=== PATIENT | female | born 1935 | race Caucasian/White ===

== ENCOUNTER 2019-11-11 14:45 | Outpatient (CLI) | payer MEDICARE, MEDICAID, SELFPAY ==
--- NOTE | ~2019-11-11 | US_ITS ---
EXAMINATION: US venous doppler UE RT DATE: 11/11/2019 15:53 INDICATION: Acute pain and swelling of the right upper extremity TECHNIQUE: Grayscale ultrasound images without and with compression and Doppler ultrasound images of the right upper extremity veins were obtained. COMPARISON: None. FINDINGS: The right internal jugular vein, subclavian vein, axillary vein, brachial veins, basilic vein, cephal ic vein, radial vein, and ulnar vein are patent. IMPRESSION: 1. No evidence of deep venous thrombosis. Reviewed, dictated and finalized at location [facility]
== END 2019-11-11 14:46 | disposition home or self-care (01) ==
PROVIDERS: PCP Internal Medicine; Visit Provider Physician Assistant
DX: M79.89 Other specified soft tissue disorders (principal)
CPT/HCPCS: 93971

== ENCOUNTER 2019-12-21 11:10 | Emergency (ER) | payer MEDICARE, MEDICAID, SELFPAY ==
[2019-12-21] VITALS (10 sets, daily range): BP systolic 130–173; BP diastolic 54–64; PULSE 78–102; RESP 17–26; TEMP 37.7; O2SAT 92–95
--- NOTE | ~2019-12-21 | XR_ITS ---
XR chest 2V 12/21/2019 12:17 Indication: Cough, high fever and dyspnea. Procedure: 2 view chest Comparison: Comparison to multiple prior studies sequentially, with oldest reviewed study dated 11/2013. Findings: Borderline heart size. No focal air space disease, pulmonary edema, pleural effusion or radha pected pneumothorax. There is atherosclerosis of the aorta. No acute osseous abnormality. Impression: 1: No acute cardiopulmonary disease. Reviewed, dictated and finalized at location A. Impression: 1: No acute cardiopulmonary disease.
--- NOTE | 2019-12-21 11:37 | ED.WEAKNESS ---
HPI - Weakness General Chief complaint: Weakness Stated complaint: fever/sob Time Seen by Provider: 12/21/19 11:34 Source: patient Mode of arrival: EMS Limitations: no limitations History of Present Illness HPI Narrative: An 84 y/o female presents to the ED, via EMS, with c/o flu symptoms. Pt states that this morning when she woke up she started to have body aches, poor appetite, rhinorrhea, slight cough, chills, subjective fever, and N/V. She notes that she is also extremley parched. Pt denies sore throat, dysuria, and any ill contacts. She has no other complaints at this time. Onset (ago): hour(s) (Today) Duration: constant Location: generalized Associated symptoms: fever/chills, nausea/vomiting and other (Body aches, poor appetite, rhinorrhea, slight cough, parched) Related Data Home Medications Medication Instructions Recorded Confirmed darbepoetin sidney in polysorbat 300 300 mcg SUB-Q .x3w ml 12/10/19 mcg/mL in polysorbate injection methylprednisolone mg 12/21/19 Allergies Allergy/AdvReac Type Severity Reaction Status Date / Time hydrocodone Allergy Severe vomiting Verified 12/10/19 14:31 codeine Allergy Mild Hives Verified 12/10/19 14:31 Sulfa (Sulfonamide Allergy Mild Rash Verified 12/10/19 14:31 Antibiotics) MUSCLE RELAXERS Allergy Mild rapid Uncoded 12/10/19 14:31 heart beat Review of Systems Review of Systems: All systems reviewed & are unremarkable except as noted in HPI and below Constitutional: Constitutional: Reports body ache(s), Reports chills, Reports fever(s) (Subjective), Reports poor appetite and Reports other (Parched) ENT: Reports nasal discharge and Denies sore throat Respiratory: Respiratory: Reports cough (Slight) Gastrointestinal: Gastrointestinal: Reports nausea and Reports vomiting Genitourinary: Genitourinary: Denies dysuria [facility] Past Medical History Medical History (Updated 12/21/19 @ 14:45 by Mihir Norwood MD) Anemia Arthritis Carpal tunnel syndrome Cataracts, bilateral Essential (primary) hypertension Ganglion cyst of volar aspect of right wrist Hemorrhoid History of blood transfusion Hyperlipidemia Hypothyroidism Kidney disease, chronic, stage III (GFR 30-59 ml/min) Post-menopausal UTI (urinary tract infection) Surgical History Surgical History (Updated 12/21/19 @ 11:43 by Sahara Dwyer) History of bunionectomy of both great toes History of cataract surgery History of repair of rotator cuff Right Family History Family History Father Family history of lung cancer, Onset Age: 56 Patient's father is Mother Patient's mother is Social History Social History Smoking status: Never smoker Second hand tobacco smoke exposure: No Smoking end date: 10/02/1954 Alcohol intake: current Exam Narrative: Exam Narrative: GENERAL: Well-appearing, well-nourished, and in no acute distress. HEAD: Normocephalic, atraumatic ENT: Mucous membranes moist. Normal posterior oropharynx without tonsillar hypertrophy or exudate. No pharyngeal erythema. CHEST: Clear to auscultation. No respiratory distress. HEART: Regular rate and rhythm. Normal peripheral pulses. ABDOMEN: Soft, nontender, nondistended, normal active bowel sounds. EXTREMITIES: Normal range of motion. Right ganglion cyst. No edema. SKIN: Warm, dry, no rash. NEURO: Alert and oriented x3. PSYCH: Normal mood and affect. Course Course Emergency Course: Unremarkable exam. Patient with leukocytosis due to recently starting a Medrol Dosepak. Influenza negative. Suspect viral illness. Patient ambulated without hypoxia. There is no pneumonia on chest x-ray. LFT's at baseline. Gave instructions to stay at home and that she should return if she has increased shortness of breath. Vital Signs Vital signs: Vital Signs Temperature 99.8 F H 12/21/19
--- NOTE | 2019-12-21 11:43 | ECG_ITS ---
Measurements Intervals [place] Rate: 94 P: 28 TN: 157 QRS: -29 QRSD: 118 T: 24 QT: 364 QTc: 457 Interpretive Statements SINUS RHYTHM INCOMPLETE RIGHT BUNDLE BRANCH BLOCK VOLTAGE CRITERIA FOR LVH HIGH LATERAL INFARCT, AGE INDETERMINATE ABNORMAL ECG Electronically Signed On 12-21-2019 15:22:44 CDT by Miko Altamirano D.O.
[2019-12-21 11:55] LABS: Basophils Absolute Auto 0.3 K/mm3 (0.0-0.1); Basophils Percent Auto 1.1 % (0.2-1.2); Eosinophils Absolute Auto 0.3 K/mm3 (0-0.3); Hematocrit 29.1 % (37.0-47.0); Hemoglobin 8.5 g/dL (12.0-15.0); Immature Granulocyte Absolute 3.66 K/mm3 (0.00-0.031); Immature Granulocyte Percent A 13.6 % (0-0.5); Lymphocytes Absolute Auto 1.68 K/mm3 (0.9-3.2); Lymphocytes Percent Auto 6.2 % (18.3-44.2); Mean Corpuscular HGB Conc 29.2 g/dl (32-36); Mean Corpuscular Hemoglobin 27.2 pg (26-34); Mean Corpuscular Volume 93.3 fl (80-100); Mean Platelet Volume 11.2 fl (7.4-10.4); Monocytes Absolute Auto 3.9 K/mm3 (0.1-0.6); Monocytes Percent Auto 14.6 % (2.6-8.5); Neutrophils Absolute Auto 17.2 K/mm3 (1.3-6.7); Neutrophils Percent Auto 63.5 % (45.5-73.1); Nucleated Red Blood Cells Absolute Auto 0.4 K/mm3 (0.0-0.012); Nucleated Red Blood Cells Perc 1.3 % (0.0-0.2); Platelet Count Result 488 k/mm3 (150-375); Red Blood Count 3.12 M/mm3 (4.2-5.4); Red Cell Distribution Width 26.1 % (11.5-14.5)
[2019-12-21] MEDS: ACETAMINOPHEN 325 MG TABLET 650 MG PO (11:57)
[2019-12-21] MEDS: SODIUM CHLORIDE 0.9% IV 1,000 ML 999 ML IV CONT (11:57)
[2019-12-21 12:10] LABS: Alanine Aminotransferase 44 U/L (4-35); Albumin Level 4.3 g/dL (3.5-5.1); Alkaline Phosphatase 118 U/L (38-126); Aspartate Amino Transferase 64 U/L (14-36); Bilirubin,Total 1.2 mg/dL (0.2-1.3); Blood Urea Nitrogen 18 mg/dL (7-17); Calcium 9.1 mg/dL (8.4-10.2); Carbon Dioxide 25 mmol/L (22-30); Chloride 102 mmol/L (98-107); Estimated CRCL calculation 39 ml/min; Estimated Glomerular Filt Rate 53; Glucose 98 mg/dL (65-105); Potassium 4.1 mmol/L (3.4-5.0); Sodium 136 mmol/L (137-145)
[2019-12-21 12:15] LABS: Anisocytosis 1+ (NORMAL); Hypochromasia 1+ (NORMAL); Microcytosis 1+ (NORMAL); Platelet Estimate Increased (Adequate)
[2019-12-21 12:16] LABS: Ovalocytes 1+ (NORMAL); Stomatocytes 1+ (NORMAL)
[2019-12-21 13:51] LABS: Add Urine Microscopic? YES; Appearance Urine Clear (Clear); Bacteria Urine Trace /hpf; Bilirubin Urine Negative (Negative); Blood Urine Negative (Negative); Color Urine Yellow (Yellow); Glucose Urine UA Negative (Negative); Ketones Urine Negative (Negative); Leukocyte Esterase Ur Trace LEU/UL (Negative); Mucus Urine Rare /lpf; Nitrate Urine Negative (Negative); Protein Urine 2+ mg/dL (Negative); RBC Urine 0-2 /hpf (0-2); Specific Grav Ur 1.018 (1.001-1.035); Squamous Epithelial Cell Urine Occasional /hpf (Few); Urobilinogen Urine Negative mg/dL (<2.0)
[2019-12-21 13:52] LABS: Lactic Acid Reflex 0.7 mmol/L (0.7-2.1)
== END 2019-12-21 15:04 | disposition home or self-care (01) ==
PROVIDERS: Emergency Provider Emergency Medicine; PCP Internal Medicine
DX: B34.9 Viral infection, unspecified (principal); D64.9 Anemia, unspecified; E78.5 Hyperlipidemia, unspecified; E03.9 Hypothyroidism, unspecified; I12.9 Hypertensive chronic kidney disease with stage 1 through stage 4 chronic kidney disease, or unspecified chronic kidney disease; N18.3 Chronic kidney disease, stage 3 (moderate); Z87.440 Personal history of urinary (tract) infections; Z98.42 Cataract extraction status, left eye; Z98.41 Cataract extraction status, right eye; R82.998 Other abnormal findings in urine
CPT/HCPCS: 36415; 71046; 80053; 81001; 83605; 85025; 87077; 87086; 87088; 87186; 87804; 93005; 96360; 99283; A9270; J7030

== ENCOUNTER 2020-04-22 11:29 | Emergency (ER) | payer MEDICARE, MEDICAID, SELFPAY ==
--- NOTE | ~2020-04-22 | CT_ITS ---
EXAMINATION: CT lumbar spine wo con DATE: 04/22/2020 12:47 INDICATION: Sacrococcygeal pain. Fall. TECHNIQUE: Computed tomography (CT) of the lumbar spine was performed without intravenous contrast. A utomated exposure control and iterative reconstruction technique were employed. The dose-length produ ct was 1351.88 mGy-cm. COMPARISON: None FINDINGS: There is 3 mm anterolisthesis of L3 on L4 and 4 mm anterolisthesis of L4 on L5. Vertebral b merle heights are normal. There is moderately decreased disc height at T12-L1, mildly decreased disc he ight at L1-L2 and L2-L3, and moderately decreased disc height at L3-L4 and L4-L5. The following disc levels are specifically discussed: L1-L2: The disc does not extend beyond the endplate margin. There is moderate bilateral facet joint o steoarthritis. There is no neural foraminal stenosis. There is no central canal stenosis. L2-L3: The disc is bulging. There is severe bilateral facet joint osteoarthritis. There is mild bilat eral neural foraminal stenosis. There is mild central canal stenosis. L3-L4: The disc is bulging. There is severe bilateral facet joint osteoarthritis. There is mild bilat eral neural foraminal stenosis. There is mild central canal stenosis. L4-L5: The disc is bulging. There is severe bilateral facet joint osteoarthritis. There is mild bilat eral neural foraminal stenosis. There is mild central canal stenosis. L5-S1: The disc is bulging. There is severe bilateral facet joint osteoarthritis. There is mild bilat eral neural foraminal stenosis. There is mild central canal stenosis. IMPRESSION: 1. No fracture. 2. Moderate lumbar spondylosis. Reviewed, dictated and finalized at location A.
--- NOTE | ~2020-04-22 | CT_ITS ---
EXAMINATION: CT brain wo con DATE: 04/22/2020 12:46 INDICATION: Headache. TECHNIQUE: Computed tomography (CT) of the head was performed without intravenous contrast. The mA wa s adjusted according to patient size. Iterative reconstruction technique was employed. The dose-lengt h product was 605.33 mGy-cm. COMPARISON: Head CT 01/25/2019 FINDINGS: There are scattered areas of low attenuation in the cerebral white matter. There is no intr acranial hemorrhage, acute infarction, or abnormal intracranial mass lesion. The ventricles are andrea l in size. There are likely changes of ocular lens replacement surgeries. There is mild mucosal thick ening in left sphenoid sinus. The mastoid air cells are normal. IMPRESSION: 1. Worsened moderate nonspecific cerebral white matter disease, which likely represents chronic small vessel ischemic disease. Reviewed, dictated and finalized at location A. IMPRESSION: 1. Worsened moderate nonspecific cerebral white matter disease, which likely re presents chronic small vessel ischemic disease.
--- NOTE | ~2020-04-22 | CT_ITS ---
EXAMINATION: CT cervical spine wo con EXAM DATE: 04/22/2020 12:46 INDICATION: Fell on Monday. Headache. Lumbosacral pain. TECHNIQUE: Spiral CT of the cervical spine was performed without contrast. Axial images were reviewe d. Coronal and sagittal reformatted images were also reviewed. The dose-length product (DLP) for thi s examination was 213.93 mGy-cm. The exposure was tailored according to patient size (auto mA exposu re control), and iterative reconstruction (ASIR) was used as additional dose reduction technique. Th ere is no prior study for comparison. FINDINGS: There is no evidence of acute cervical fracture. The odontoid process is intact. Pre-dens space is normal. Prevertebral soft tissue is normal. There are no soft tissue abnormalities identi fied. There is no disc space widening or traumatic vertebral body subluxation suspected. There is m oderate disc disease at C5-6 and C6-7. There is mild to moderate cervical arthropathy. A detailed lev el by level evaluation of spondylosis can be added as addendum if requested. IMPRESSION: 1. No acute cervical fracture. Reviewed, dictated and finalized at location A.
--- NOTE | ~2020-04-22 | XR_ITS ---
XR pelvis 1-2V DATE: 04/22/2020 12:55 INDICATION: Fall. Pelvic pain. TECHNIQUE: AP pelvis, one view COMPARISON: None FINDINGS: The pubic symphysis and sacroiliac joints are intact. No pelvic fracture is evident. The hi p joint spaces are relatively well preserved, symmetric. No pelvic bone destruction is detected. IMPRESSION: No evidence of pelvic fracture or bone destruction Reviewed, dictated and finalized at location B.
[2020-04-22 11:41] VITALS: BP 167/71; PULSE 67; RESP 18; TEMP 36.4; O2SAT 96
[2020-04-22 12:31] LABS: Hematocrit 29.4 % (37.0-47.0); Hemoglobin 8.6 g/dL (12.0-15.0); Mean Corpuscular HGB Conc 29.3 g/dl (32-36); Mean Corpuscular Hemoglobin 26.5 pg (26-34); Mean Corpuscular Volume 90.7 fl (80-100); Mean Platelet Volume 10.6 fl (7.4-10.4); Platelet Count Result 422 k/mm3 (150-375); Red Blood Count 3.24 M/mm3 (4.2-5.4); Red Cell Distribution Width 25.9 % (11.5-14.5); White Blood Count 18.8 K/mm3 (4.5-10.0)
--- NOTE | 2020-04-22 12:34 | ED.FALL ---
HPI - Fall General Chief Complaint: Fall <MAYUR Fitzpatrick Last Filed: 04/22/20 14:31> Stated Complaint: fall on monday/headache <MAYUR Fitzpatrick Last Filed: 04/22/20 14:31> Time Seen by Provider: 04/22/20 11:51 <MAYUR Fitzpatrick Last Filed: 04/22/20 14:31> Source: patient and family <MAYUR Fitzpatrick Last Filed: 04/22/20 14:31> Mode of arrival: ambulatory <MAYUR Fitzpatrick Last Filed: 04/22/20 14:31> Limitations: no limitations <MAYUR Fitzpatrick Last Filed: 04/22/20 14:31> History of Present Illness HPI Narrative: Patient is an 85-year-old female who presents to emergency department for evaluation of injuries related to a fall that occurred Monday patient was in the shower when she slipped off the shower seat landing on her bottom has had sacral pain since patient also notes having struck the head and has had some mild posterior head pain and neck pain patient resting comfortably in the room upon arrival in no distress lives at home by herself presents with her son who is in the room and can check on the patient regularly if needed patient has been able to ambulate and get around since the incident patient know she was only down for about 25-minute <MAYUR Fitzpatrick Last Filed: 04/22/20 14:31> Related Data Home Medications: Home Medications Medication Instructions Recorded Confirmed luspatercept-aamt 25 mg 25 mg SUB-Q .q3w each 04/14/20 subcutaneous solution <MAYUR Fitzpatrick Last Filed: 04/22/20 14:31> Allergies/Adverse Reactions: Allergies Allergy/AdvReac Type Severity Reaction Status Date / Time hydrocodone Allergy Severe vomiting Verified 04/22/20 11:45 codeine Allergy Mild Hives Verified 04/22/20 11:45 Sulfa (Sulfonamide Allergy Mild Rash Verified 04/22/20 11:45 Antibiotics) MUSCLE RELAXERS Allergy Mild rapid Uncoded 04/22/20 11:45 heart beat <MAYUR Fitzpatrick Last Filed: 04/22/20 14:31> Review of Systems Review of Systems: All systems reviewed & are unremarkable except as noted in HPI and below <Ramón Oates PA-C - Last Filed: 04/22/20 14:31> [facility] Past Medical History Medical History: Medical History Anemia Arthritis Carpal tunnel syndrome Cataracts, bilateral Essential (primary) hypertension Ganglion cyst of volar aspect of right wrist Hemorrhoid History of blood transfusion Hyperlipidemia Hypothyroidism Kidney disease, chronic, stage III (GFR 30-59 ml/min) Post-menopausal UTI (urinary tract infection) <Ramón Oates PA-C - Last Filed: 04/22/20 14:31> Surgical History Surgical History: Surgical History History of bunionectomy of both great toes History of cataract surgery History of repair of rotator cuff Right <Ramón Oates PA-C - Last Filed: 04/22/20 14:31> Family History Family History: Family History Father Family history of lung cancer, Onset Age: 56 Patient's father is Mother Patient's mother is <Ramón Oates PA-C - Last Filed: 04/22/20 14:31> Social History Social History: Social History Smoking status: Never smoker Second hand tobacco smoke exposure: No Smoking end date: 10/02/1954 Alcohol intake: current Substance use: never <Ramón Oates PA-C - Last Filed: 04/22/20 14:31> Exam Narrative: Exam Narrative: GENERAL: Well-appearing, well-nourished, and in no acute distress. HEAD: Normocephalic, atraumatic. EYES: PERRLA and EOMI. ENT: Nares clear, no rhinorrhea or epistaxis. Mucous membranes moist. Oropharynx without tonsillar hypertrophy exudate or other lesions. NECK: Supple. No adenopathy or masses. CHEST
[2020-04-22 12:45] LABS: Band Neutrophils Percent 7 % (0-6); Eosinophils Absolute Manual 0.18 K/mm3 (0.02-0.5); Eosinophils Percent Manual 1 % (0-4); Lymphocytes Absolute Manual 3.94 K/mm3 (1.1-4.5); Monocytes Absolute Manual 2.25 K/mm3 (0.1-0.90); Monocytes Percent Manual 12 % (3-9); Myelocytes Percent 2 %; Neutrophils Absolute Manual 12.03 K/mm3 (1.7-7.2); Neutrophils Percent Manual 57 % (46-73); Platelet Estimate Adequate (Adequate); Total Cells Counted 100
[2020-04-22 12:46] LABS: Alanine Aminotransferase 17 U/L (4-35); Albumin Level 4.2 g/dL (3.5-5.1); Alkaline Phosphatase 98 U/L (38-126); Anion Gap 13.7 mmol/L (7-16); Anisocytosis 2+ (NORMAL); Aspartate Amino Transferase 41 U/L (14-36); Bilirubin,Total 0.8 mg/dL (0.2-1.3); Blood Urea Nitrogen 17 mg/dL (7-17); Calcium 8.8 mg/dL (8.4-10.2); Carbon Dioxide 23 mmol/L (22-30); Chloride 104 mmol/L (98-107); Creatine Kinase 41 U/L (30-135); Estimated CRCL calculation 36 ml/min; Estimated Glomerular Filt Rate 53; Glucose 92 mg/dL (65-105); Hypochromasia 1+ (NORMAL); Polychromasia 1+ (NORMAL); Potassium 4.7 mmol/L (3.4-5.0); Sodium 136 mmol/L (137-145)
[2020-04-22] MEDS: SODIUM CHLORIDE 0.9% IV 500 ML 999 ML IV CONT (12:48)
[2020-04-22 13:00] LABS: Add Urine Microscopic? NO; Appearance Urine Clear (Clear); Bilirubin Urine Negative (Negative); Blood Urine Negative (Negative); Color Urine Yellow (Yellow); Glucose Urine UA Negative (Negative); Ketones Urine Negative (Negative); Leukocyte Esterase Ur Negative LEU/UL (Negative); Nitrate Urine Negative (Negative); Protein Urine Negative (Negative); Specific Grav Ur 1.011 (1.001-1.035); Urobilinogen Urine Negative mg/dL (<2.0)
[2020-04-22 14:15] VITALS: BP 159/62; PULSE 58
[2020-04-22 14:16] VITALS: BP 194/82; PULSE 77
[2020-04-22 14:18] VITALS: BP 179/81; PULSE 80
== END 2020-04-22 15:04 | disposition home or self-care (01) ==
PROVIDERS: Emergency Medicine Emergency Medical Services; Emergency Provider Emergency Medicine; PCP Internal Medicine
DX: S09.90XA Unspecified injury of head, initial encounter (principal); M54.5 Low back pain; M47.816 Spondylosis without myelopathy or radiculopathy, lumbar region; D64.9 Anemia, unspecified; M19.90 Unspecified osteoarthritis, unspecified site; E78.5 Hyperlipidemia, unspecified; E03.9 Hypothyroidism, unspecified; I12.9 Hypertensive chronic kidney disease with stage 1 through stage 4 chronic kidney disease, or unspecified chronic kidney disease; N18.3 Chronic kidney disease, stage 3 (moderate); Z87.440 Personal history of urinary (tract) infections; W18.2XXA Fall in (into) shower or empty bathtub, initial encounter
CPT/HCPCS: 36415; 70450; 72125; 72131; 72170; 80053; 81003; 82550; 85025; 96360; 99284; J7040

== ENCOUNTER 2020-04-29 11:04 | Outpatient (CLI) | payer MEDICARE, MEDICAID, SELFPAY ==
--- NOTE | ~2020-04-29 | XR_ITS ---
EXAMINATION: XR foot LT min 3V DATE: 04/29/2020 11:29 INDICATION: Left foot pain. TECHNIQUE: 4 views of left foot were obtained. COMPARISON: None. FINDINGS: Bone alignment is normal. No fracture. There are likely changes of bunionectomy. The heads of the second and third proximal phalanges are small, which may be surgical change. There is severe o steoarthritis of first metatarsophalangeal joint and mild osteoarthritis of third metatarsophalangeal joint and some of the interphalangeal joints and midfoot joints. There are enthesophytes at the post erior and plantar aspects of calcaneal tuberosity. IMPRESSION: 1. Polyarticular osteoarthritis. Reviewed, dictated and finalized at location A.
--- NOTE | ~2020-04-29 | XR_ITS ---
EXAMINATION: XR ankle LT min 3V DATE: 04/29/2020 11:29 INDICATION: Left ankle pain. TECHNIQUE: 4 views of left ankle were obtained. COMPARISON: None. FINDINGS: Bone alignment is normal. No fracture. There is a small osteochondral lesion of lateral jeff ar dome. There are enthesophytes at the posterior and plantar aspects of calcaneal tuberosity. There is ankle soft tissue swelling. IMPRESSION: 1. Small osteochondral lesion of lateral talar dome. Reviewed, dictated and finalized at location A.
== END 2020-04-29 11:05 | disposition home or self-care (01) ==
LOC: ANHIMG 11:08
PROVIDERS: PCP Physician Assistant; Visit Provider Physician Assistant
DX: M19.072 Primary osteoarthritis, left ankle and foot (principal)
CPT/HCPCS: 73610; 73630

== ENCOUNTER 2021-05-21 00:39 | Inpatient (IN) | payer MEDICARE, MEDICAID, SELFPAY ==
[2021-05-21] VITALS (26 sets, daily range): BP systolic 105–180; BP diastolic 44–71; PULSE 72–134; RESP 20–34; TEMP 36.6–38.4; O2SAT 91–100; BMI 28.0
--- NOTE | ~2021-05-21 | XR_ITS ---
EXAMINATION: XR chest 1V portable EXAM DATE: 05/24/2021 06:18 INDICATION: COVID pneumonia. TECHNIQUE: Portable AP frontal chest x-ray was obtained. Comparison is made to prior examination from 05/22/2021, 05/21/2021. FINDINGS: Dense right mid and lower lung zone airspace disease appears unchanged. There may be mild i mprovement in the left-sided airspace disease compared to prior exams. There is no pneumothorax suspe cted. There are no pleural effusions. The cardiomediastinal silhouette is prominent but magnified on this AP technique. There are no osseous abnormalities identified. IMPRESSION: 1. Bilateral COVID pneumonia, mild improvement on the left. Reviewed, dictated and finalized at location A.
--- NOTE | ~2021-05-21 | XR_ITS ---
XR chest 1V portable 05/21/2021 00:52 Indication: Shortness of breath Procedure: AP portable chest Comparison: Comparison to multiple prior studies sequentially, with oldest reviewed study dated 2015. Findings: Interval development of extensive bilateral airspace disease. No significant effusion or pn eumothorax. There is an external radiodensity overlying the left thorax. No acute osseous abnormality . Impression: 1: Extensive bilateral airspace disease which may represent edema or pneumonia. Reviewed, dictated and finalized at location A. Impression: 1: Extensive bilateral airspace disease which may represent edema or pneumonia.
--- NOTE | ~2021-05-21 | XR_ITS ---
EXAMINATION: XR chest PICC line DATE: 05/21/2021 15:53 INDICATION: Central line placement. TECHNIQUE: A single frontal view of the chest was obtained. COMPARISON: Chest single view at 12:45 AM FINDINGS: There are airspace opacities in the mid and lower lung zones. No pleural effusion or pneumo thorax. The heart size is normal. A left upper extremity peripherally inserted central venous cathete r (PICC) is seen with tip in the superior vena cava. IMPRESSION: 1. PICC tip in the superior vena cava. 2. Airspace opacities in the mid and lower lung zones with worsening at left lung base, consistent wi th pneumonia. Reviewed, dictated and finalized at location B. IMPRESSION: 1. PICC tip in the superior vena cava. 2. Airspace opacities in the mid and lower lung zones with worsening at left brigette ng base, consistent with pneumonia.
--- NOTE | ~2021-05-21 | XR_ITS ---
XR chest 1V portable DATE: 05/22/2021 08:47 INDICATION: Covid pneumonia, pulmonary edema TECHNIQUE: Portable AP view on 05/22/2021 at 0833 hours COMPARISON: 05/21/2021 portable AP chest at 1546 hours FINDINGS: Severe bilateral consolidating pulmonary infiltrates involving particularly the mid and low er lung zones. Cardiomegaly. Aortic calcification. There is minimal if any pleural effusion. No pneumothorax. Left upper extremity PIC catheter tip overlies proximal superior vena cava. IMPRESSION: Severe patchy consolidating infiltrates both lungs, especially at mid and lower lung zone s, relatively stable since 05/21/2021 Reviewed, dictated and finalized at location A. IMPRESSION: Severe patchy consolidating infiltrates both lungs, especially at m id and lower lung zones, relatively stable since 05/21/2021
--- NOTE | ~2021-05-21 | US_ITS ---
EXAMINATION: US venous doppler LE EXAM DATE: 05/24/2021 09:53 INDICATION: Shortness of breath, cancer. TECHNIQUE: Multiple grayscale, color flow and Doppler images of the lower extremity deep venous syste ms bilaterally were obtained and reviewed. Comparison is made to prior examination from 06/10/2015. FINDINGS: Right side: The right common femoral, femoral and profunda veins demonstrate normal color flow, respi ratory variation, augmentation and compressibility. Compressibility, color flow confirmed within the right popliteal, posterior tibial, peroneal, and greater saphenous veins. Left side: The left common femoral, femoral and profunda veins demonstrate normal color flow, respira tory variation, augmentation and compressibility. Compressibility, color flow confirmed within the l eft popliteal, posterior tibial, peroneal, and greater saphenous veins. IMPRESSION: 1. No lower extremity deep venous thrombosis bilaterally. Reviewed, dictated and finalized at location A.
--- NOTE | 2021-05-21 00:38 | ECG_ITS ---
Rate 133 DC 0 QRSd 114 QT 308 QTc 459 --Whitney-- P QRS -29 T 96 ATRIAL FLUTTER/TACHYCARDIA WITH RAPID VENTRICULAR RESPONSE INCOMPLETE RIGHT BUNDLE BRANCH BLOCK LEFT VENTRICULAR HYPERTROPHY AND ST-T CHANGE MINIMAL Q WAVES- HIGH LATERAL LEADS BASELINE ARTIFACT- I, II, III, AVR, AVL, AVF, V1-V2, V6 ABNORMAL ECG Electronically Signed On 05-21-2021 6:05:25 CDT by Miko Altamirano D.O. COMPARED TO ECG 12/21/2019 11:22:15 ATRIAL FLUTTER NOW PRESENT ST (T WAVE) DEVIATION NOW PRESENT MTDD
[2021-05-21] MEDS: FUROSEMIDE INJ 40 MG/4 ML VIAL IV PUSH ×2 (00:52→12:44)
[2021-05-21 00:53] LABS: Hematocrit 33.2 % (37.0-47.0); Hemoglobin 9.5 g/dL (12.0-15.0); Mean Corpuscular HGB Conc 28.6 g/dl (32-36); Mean Corpuscular Hemoglobin 28.9 pg (26-34); Mean Corpuscular Volume 100.9 fl (80-100); Mean Platelet Volume 11.2 fl (7.4-10.4); Platelet Count Result 601 k/mm3 (150-375); Red Blood Count 3.29 M/mm3 (4.2-5.4); Red Cell Distribution Width 22.2 % (11.5-14.5)
[2021-05-21 01:02] LABS: Anion Gap 14 mmol/L (8-16); Blood Urea Nitrogen 30 mg/dL (7-17); Calcium 8.5 mg/dL (8.4-10.2); Carbon Dioxide 17 mmol/L (22-30); Chloride 104 mmol/L (98-107); Estimated Glomerular Filt Rate 33; Glucose 270 mg/dL (65-110); Potassium 4.5 mmol/L (3.4-5.0); Sodium 135 mmol/L (137-145)
[2021-05-21 01:03] LABS: Alanine Aminotransferase 33 U/L (4-35); Albumin Level 4.5 g/dL (3.5-5.1); Alkaline Phosphatase 135 U/L (38-126); Aspartate Amino Transferase 89 U/L (14-36); Bilirubin,Total 0.7 mg/dL (0.2-1.3)
[2021-05-21 01:04] LABS: Band Neutrophils Percent 5 % (0-6); Eosinophils Percent Manual 5 % (0-4); Lymphocytes Absolute Manual 7.28 K/mm3 (1.1-4.5); Metamyelocytes Percent 1 %; Monocytes Absolute Manual 1.96 K/mm3 (0.1-0.90); Monocytes Percent Manual 7 % (3-9); Neutrophils Absolute Manual 17.08 K/mm3 (1.7-7.2); Neutrophils Percent Manual 56 % (46-73); Nucleated Red Blood Cells 2 %; Total Cells Counted 100
[2021-05-21 01:05] LABS: Alveolar/Arterial O2 Gradient 589.9 mmHg; Carboxyhemoglobin 0.3 % THb (0-2.0); Fractional Inspired Oxygen 100 %; HCO3 ABG 15.6 mEq/l (22.0-26.0); Methemoglobin ABG 0.2 %THb (0-1.5); Oxyhemoglobin 91.1 % THb (90.0-100.0); PCO2 ABG 42.5 mmHg (35.0-45.0); PO2 ABG 80.6 mmHg (80.0-100.0); PO2 FiO2 Ratio Arterial Blood 0.81 %; Reduced Hemoglobin 8.4 %THb (0-5.0); Total Hemoglobin 10.1 g/dL (12.0-18.0)
[2021-05-21 01:06] LABS: Device NON-INVASIVE VENT; Modified Allen's Test Pass; Site Drawn LEFT RADIAL; pH ABG 7.183 (7.350-7.450)
[2021-05-21 01:06] LABS: Anisocytosis 1+ (NORMAL); Ovalocytes 2+ (NORMAL); Platelet Estimate Increased (Adequate)
[2021-05-21 01:07] LABS: Non-Invasive Expiratory Pressure 8 CMH2O; Non-Invasive Inspiratory Pressure 16 CMH2O; Non-Invasive Vent Rate 18 /MIN
[2021-05-21] MEDS: NITROGLYCERIN/D5W 200 MCG/ML 50 MG/250 ML BTL IV CONT (01:11)
--- NOTE | 2021-05-21 01:14 | PC.NURSE ---
HÉCTOR Craven double check Nitro drip rate/dose.
[2021-05-21 01:15] LABS: NT Pro B Type Natriuretic Pept 6290 pg/mL (5-100); Troponin I < 0.012 ng/mL (0.000-0.034)
--- NOTE | 2021-05-21 02:07 | ED.SOB ---
HPI - SOB/Dyspnea General Chief Complaint: Shortness of Breath/Dyspnea Stated Complaint: sob Time Seen by Provider: 05/21/21 00:42 Source: patient and family History of Present Illness HPI Narrative: Patient presents and respiratory distress. Reports history of myelodysplastic syndrome and had transfusion of 2 units of RBCs yesterday. Today follow-up with her physician and was doing well however this evening she developed shortness of breath was called and she was brought in for evaluation. Family reports a history of pulmonary edema. Family denies recent fevers, cough, congestion, nausea, vomiting. Patient denies any focal areas of pain such as chest pain or abdominal pain Related Data Home Medications Medication Instructions Recorded Confirmed luspatercept-aamt 25 mg 25 mg SUB-Q .q3w each 04/14/20 12/22/20 subcutaneous solution acetaminophen 325 mg tablet 325 mg PO Q12H PRN tablet 04/29/20 04/30/21 azacitidine 300 mg tablet 300 mg PO DAILY 12/22/20 12/22/20 docusate sodium 100 mg capsule 100 mg PO DAILY 04/26/21 04/30/21 gabapentin 300 mg capsule 300 mg PO TID 04/26/21 04/30/21 pantoprazole 40 mg tablet,delayed 40 mg PO QAM 04/26/21 04/30/21 release Allergies Allergy/AdvReac Type Severity Reaction Status Date / Time hydrocodone Allergy Severe vomiting Verified 05/21/21 00:43 codeine Allergy Mild Hives Verified 05/21/21 00:43 Sulfa (Sulfonamide Allergy Mild Rash Verified 05/21/21 00:43 Antibiotics) MUSCLE RELAXERS Allergy Mild rapid Uncoded 05/21/21 00:43 heart beat Review of Systems Review of Systems: CONSTITUTIONAL: Denies fever, chills, or sweats. EYES: Denies visual changes, redness, or discharge. ENT: Denies rhinorrhea, congestion, sore throat, or otalgia. CARDIOVASCULAR: Denies chest pain, palpitations, or edema. RESPIRATORY: Reports shortness of breath denies cough GASTROINTESTINAL: Denies abdominal pain, nausea, vomiting, or diarrhea. GENITOURINARY: Denies dysuria or hematuria. SKIN: Denies rash or itching. MUSCULOSKELETAL: Denies back pain, joint pain, or myalgia. NEUROLOGIC: Denies headache, numbness, dizziness, or weakness. All systems reviewed & are unremarkable except as noted in HPI and below (Review of systems limited due to patient in respiratory distress) [facility] Past Medical History Medical History (Updated 05/21/21 @ 03:49 by Itzel Walker MD) Anemia Arthritis Carpal tunnel syndrome Cataracts, bilateral Essential (primary) hypertension Ganglion cyst of volar aspect of right wrist Hemorrhoid History of blood transfusion Hyperlipidemia Hypothyroidism Kidney disease, chronic, stage III (GFR 30-59 ml/min) Post-menopausal UTI (urinary tract infection) Surgical History Surgical History History of bunionectomy of both great toes History of cataract surgery History of repair of rotator cuff Right Family History Family History Father Family history of lung cancer, Onset Age: 56 Patient's father is Mother Patient's mother is Social History Social History Smoking status: Never smoker Second hand tobacco smoke exposure: No Smoking end date: 10/02/1954 Alcohol intake: never Substance use: never Exam Narrative: GENERAL: Well-appearing, well-nourished, in respiratory distress HEAD: Normocephalic, atraumatic. EYES: PERRLA and EOMI. ENT: Nares clear, no rhinorrhea or epistaxis. Mucous membranes moist. NECK: Supple. No masses. CHEST: Retractions accessory muscle use diffuse rhonchi/crackles in all lung [place] HEART: Regular tachycardia no murmur heard. ABDOMEN: Soft, nontender, nondistended, EXTREMITIES: Normal range of motion. 2+ pitting edema in the bilateral lower extremity SKIN: Warm, dry, no rash. NEURO: No focal deficits. Alert and oriented
--- NOTE | 2021-05-21 02:17 | ECG_ITS ---
Rate 86 AL 146 QRSd 105 QT 376 QTc 451 --Delta-- P 46 QRS -24 T 67 SINUS RHYTHM INCOMPLETE RIGHT BUNDLE BRANCH BLOCK LEFT VENTRICULAR HYPERTROPHY AND ST-T CHANGE MINIMAL Q WAVES- HIGH LATERAL LEADS BORDERLINE ECG Electronically Signed On 05-21-2021 7:24:01 CDT by Miko Altamirano D.O. COMPARED TO ECG 05/21/2021 00:38:02 SINUS RHYTHM NOW PRESENT MTDD
[2021-05-21 02:40] LABS: Alveolar/Arterial O2 Gradient 563.1 mmHg; Base Excess ABG -6.3 mEq/l (+/-2.0); Device NON-INVASIVE VENT; Fractional Inspired Oxygen 100 %; HCO3 ABG 18.5 mEq/l (22.0-26.0); Non-Invasive Inspiratory Pressure 16 CMH2O; Non-Invasive Vent Rate 18 /MIN; Oxygen Content ABG 14.2 %vol (16.0-22.0); Oxygen Saturation ABG 98.1 % (95.0-100.0); Oxyhemoglobin 96.6 % THb (90.0-100.0); PCO2 ABG 33.8 mmHg (35.0-45.0); PO2 ABG 116.1 mmHg (80.0-100.0); PO2 FiO2 Ratio Arterial Blood 1.16 %; Site Drawn LEFT BRACHIAL; Total Hemoglobin 10.3 g/dL (12.0-18.0); pH ABG 7.355 (7.350-7.450)
[2021-05-21 02:41] LABS: Non-Invasive Expiratory Pressure 8 CMH2O
--- NOTE | 2021-05-21 02:42 | PC.NURSE ---
called lab to inform them the rapid covid test has been sent.
--- NOTE | 2021-05-21 02:59 | PC.NURSE ---
i have tried to make contact with dr lerma twice for this pt. i have left 2 messages and no call back
[2021-05-21 03:00] LABS: EDCOVIDSCREEN Negative (Negative)
--- NOTE | 2021-05-21 03:42 | PM.IMHP ---
H&P: HPI History of Present Illness Date/Time: 05/21/21 03:42 Chief Complaint: Shortness of breath Narrative: This is an 86-year-old female with past medical history significant for myelodysplastic syndrome and myelofibrosis, chronic kidney disease, anemia of chronic kidney disease. Patient received 2 units of packed red blood cells on Monday of this week and she tolerated well however night she call her daughter after she felt very short of breath EMS was called and patient was brought to the emergency room. Upon arrival to emergency room patient was in severe respiratory distress. Preliminary workup was significant for x-ray with acute flash pulmonary edema patient was placed on BiPAP. At the time of my visit patient was on BiPAP I obtained most of the history from reviewing medical records and daughter who is sitting at bedside as per daughter there was no fevers or chills patient had been in her usual state of health up until this episode. Review of Systems Review of Systems: ROS unobtainable: Yes unobtainable due to medical condition (Respiratory failure on BiPAP) [facility] Past Medical History Medical History (Updated 05/21/21 @ 03:49 by Itzel Walker MD) Anemia Arthritis Carpal tunnel syndrome Cataracts, bilateral Essential (primary) hypertension Ganglion cyst of volar aspect of right wrist Hemorrhoid History of blood transfusion Hyperlipidemia Hypothyroidism Kidney disease, chronic, stage III (GFR 30-59 ml/min) Post-menopausal UTI (urinary tract infection) Surgical History Surgical History History of bunionectomy of both great toes History of cataract surgery History of repair of rotator cuff Right Family History Family History Father Family history of lung cancer, Onset Age: 56 Patient's father is Mother Patient's mother is Social History Social History Smoking status: Never smoker Second hand tobacco smoke exposure: No Smoking end date: 10/02/1954 Alcohol intake: never Substance use: never Meds Home Medications and Allergies Home Medications Medication Instructions Recorded Confirmed Type luspatercept-aamt 25 mg 25 mg SUB-Q .q3w each 04/14/20 12/22/20 History subcutaneous solution acetaminophen 325 mg tablet 325 mg PO Q12H PRN tablet 04/29/20 04/30/21 History levothyroxine 50 mcg tablet 50 mcg PO DAILY #90 tablet 11/10/20 04/30/21 Rx lisinopril 40 mg tablet 40 mg PO DAILY #90 tablet 12/08/20 04/30/21 Rx azacitidine 300 mg tablet 300 mg PO DAILY 12/22/20 12/22/20 History docusate sodium 100 mg capsule 100 mg PO DAILY 04/26/21 04/30/21 History gabapentin 300 mg capsule 300 mg PO TID 04/26/21 04/30/21 History pantoprazole 40 mg tablet,delayed 40 mg PO QAM 04/26/21 04/30/21 History release Allergies Allergy/AdvReac Type Severity Reaction Status Date / Time hydrocodone Allergy Severe vomiting Verified 05/21/21 00:43 codeine Allergy Mild Hives Verified 05/21/21 00:43 Sulfa (Sulfonamide Allergy Mild Rash Verified 05/21/21 00:43 Antibiotics) MUSCLE RELAXERS Allergy Mild rapid Uncoded 05/21/21 00:43 heart beat Vital Signs Vital Signs - 24 hr 05/21/21 00:30 05/21/21 00:41 05/21/21 01:11 Temperature 97.9 F Pulse Rate 134 H 127 H Respiratory Rate 32 H Blood Pressure 180/69 H 162/66 H Pulse Oximetry 94 94 05/21/21 02:05 05/21/21 02:06 05/21/21 03:27 Temperature Pulse Rate 96 93 87 Respiratory Rate 30 H 28 H Blood Pressure 105/49 L 105/49 L 109/44 L Pulse Oximetry 98 100 Exam Narrative: Laying in [place] on Const: General: comfortable, no acute distress, well developed, acute distress mild and ill appearing Nutritional Appearance: average body habitus Orientation/consciousness: patient oriented x3 HENMT: Head:
[2021-05-21 05:26] LABS: Troponin I 0.214 ng/mL (0.000-0.034)
--- NOTE | 2021-05-21 05:33 | PC.NURSE ---
This patient, José Miguel Chan, was admitted to Intensive Care Unit-11. Patient/family oriented to hospital policies and general routines including ID bracelet, bed and alarms, visiting hours, pain management, procedures, bathroom and other care routines, personal items, smoking policy, room service/diet, and visiting hours. Information on how to activate the Rapid Response Team has been discussed. Patient/Family are encouraged to report perceived risks to care and to ask questions if they do not understand what they are told or what they should do.
[2021-05-21 08:46] LABS: Troponin I 0.466 ng/mL (0.000-0.034)
--- NOTE | 2021-05-21 09:52 | WPDCNINT ---
Assessment and Plan Assessment and plan (1) Acute respiratory failure with hypoxia: Code(s): J96.01 - Acute respiratory failure with hypoxia Status: Acute Assessment and Plan: Acute respiratory failure status post transfusion on 05/19/2021. Patient has a history of transfusion reactions. -chest x-ray shows bilateral diffuse infiltrates could be related to TRALI or TACO -will give additional dose of IV Lasix -patient also started on azithromycin, ceftriaxone vancomycin (2) Exposure to COVID-19 virus: Code(s): Z20.822 - Contact with and (suspected) exposure to COVID-19 Status: Acute Assessment and Plan: Patient has had exposure to a caregiver and daughter who were COVID positive -SARS-CoV-2 PCR has been obtained and pending -continue droplet, airborne and contact isolation/precautions (3) Kidney disease, chronic, stage III (GFR 30-59 ml/min): Code(s): N18.3 - Chronic kidney disease, stage 3 (moderate) Status: Acute Assessment and Plan: Patient with history of chronic kidney disease, (creatinine on 04/22/2020 was 1.0) -creatinine on this admission is 1.5 -patient will be receiving some diuretics for volume overload -continue to monitor urine output, renal function and electrolytes (4) Myelodysplastic syndrome: Code(s): D46.9 - Myelodysplastic syndrome, unspecified Status: Acute Assessment and Plan: History of myelodysplastic syndrome with myelofibrosis, follows with Dr. Lopez Additional Plan Discussed with patient updated with her condition and plan of care. Code status: DNR Critical care time spent: 42 minute This dictation may have been done utilizing a voice recognition system. Attempts have been made to correct errors. However, there may be uncorrected grammatical, spelling, and recognition errors present. Due to a high probability of clinically significant, life threatening deterioration, the patient required my highest level of preparedness to intervene emergently and I personally spent this critical care time directly and personally managing the patient. This critical care time included obtaining a history; examining the patient; pulse oximetry; ordering and review of studies; arranging urgent treatment with development of a management plan; evaluation of patient's response to treatment; frequent reassessment; and discussions with other providers. It was exclusive of separately billable procedures and treating other patients and teaching time. Please see Assessment and Plan section and the rest of the note for further information on patient assessment and treatment [employer] Consult Note Consult date: 05/21/21 Time Seen: 07:09 Reason for consult: Acute hypoxic respiratory failure, pulmonary edema, suspect COVID-19 HPI: José Miguel Chan is a 86 year old female with past medical history of myeloid dysplastic syndrome and myelofibrosis, anemia requiring blood transfusions, stage III chronic kidney disease, essential hypertension, hyperlipidemia, hypothyroidism, history of UTIs presented to the ER on 05/21/2021 in the early hours with complains of shortness of breath and respiratory distress. According the patient she was transfused 2 units of packed RBCs on 05/19. On 05/20 night, patient felt very short of breath and was brought to the ER. Chest x-ray in the ER showed flash pulmonary edema patient was given Lasix and placed on BiPAP. According the nurses records patient has a caregiver who was positive for COVID-19 approximately 2 weeks prior the patient has been round a caregiver. Patient's daughter also has tested positive for COVID. Patient is not vaccinated. She denies tobacco use, alcohol use, recreational drug use. Currently on BiPAP requesting to drink something and once the BiPAP to be off. Patient denies any chest pain, abdominal pain, nausea, vomiting, diarrhea. She denies any loss of sense of taste or smell. Pt on BiPAP 12/6 and 60% FiO2 with
[2021-05-21] MEDS: LEVOTHYROXINE SODIUM 50 MCG TABLET PO (10:33)
[2021-05-21 11:32] LABS: Lactic Acid Reflex 1.4 mmol/L (0.7-2.1)
--- NOTE | 2021-05-21 11:42 | ECHO_ITS ---
Patient Info Name: José Miguel Chan Age: 86 years : 1935 Gender: Female Ht: 62 in Wt: 153 lbs BSA: 1.76 m2 HR: 74 bpm BP: 95 / 46 mmHg Heart Rhythm: Sinus Rhythm Exam Date: 05/21/2021 2:01 PM Exam Location: [facility] Patient Status: Inpatient Admit Date: 05/21/2021 Staff Ordering Physician: Hu Pepper MD Digital Media Designer: Jevon Courtney, TATUM, RT Attending Provider: Itzel Walker MD Referring Physician: Shantelle FLORES; Exam Type: CA echo doppler color flow Study Info Indications R60.0 - Localized edema Complete two-dimensional, color flow and Doppler transthoracic echocardiogram is performed. Strain analysis performed. Summary 1. Complete two-dimensional, color flow and Doppler transthoracic echocardiogram is performed. 2. Left ventricular chamber dimension is normal. 3. Left ventricular systolic function is normal, estimated at 65-70%. 4. The left ventricular diastolic function is grade II diastolic dysfunction. 5. Left atrial chamber dimension is mildly enlarged. 6. There is no aortic valve stenosis. 7. There is mild mitral valve regurgitation. 8. There is mild tricuspid valve regurgitation. 9. Mild pulmonary hypertension, estimated pulmonary arterial systolic pressure is 44 mmHg. Left Ventricle Left ventricular chamber dimension is normal. Left ventricular systolic function is normal, estimated at 65-70%. There is mildly increased left ventricular wall thickness. The left ventricular diastolic function is grade II diastolic dysfunction. Global longitudinal strain is mildly elevated at -16 %. Right Ventricle Right ventricular chamber dimension is normal. Right ventricular systolic function is normal. Left Atria Left atrial chamber dimension is mildly enlarged. Right Atria Right atrial chamber dimension is mildly enlarged. Aortic Valve The aortic valve is trileaflet. There is mild aortic valve sclerosis. There is no aortic valve stenosis. There is mild aortic valve regurgitation. Pulmonic Valve The pulmonic valve is not well visualized. There is mild pulmonic regurgitation. Mitral Valve The mitral valve has thickened leaflets. There is mild mitral valve regurgitation. The mitral valve annulus is moderately calcified. Tricuspid Valve The tricuspid valve leaflets are normal. There is mild tricuspid valve regurgitation. Mild pulmonary hypertension, estimated pulmonary arterial systolic pressure is 44 mmHg. Pericardium/Pleural The pericardium appears normal. There is no pericardial effusion. Inferior Vena Cava Dilated inferior vena cava with >50% collapse upon inspiration consistent with Empty right atrial pressure, 10 mmHg. Aorta The aortic root size at the sinus of Valsalva is normal. There is mild-moderate aortic atherosclerosis. Left Ventricular Outflow Tract Name Value Normal LVOT 2D LVOT Diameter 2.0 cm LVOT Doppler LVOT Peak Gradient 6 mmHg LVOT Mean Gradient 3 mmHg LVOT VTI 23 cm LVOT VTI/AV VTI Ratio 0.8
[2021-05-21] MEDS: LIDOCAINE HCL 1% PF INJ 5 ML VIAL INFILTRATE (15:15)
--- NOTE | 2021-05-21 16:07 | PM.CNCAR ---
Assessment and Plan Assessment and plan (1) Elevated troponin: Code(s): R77.8 - Other specified abnormalities of plasma proteins Status: Acute Assessment and Plan: Mild troponin elevation without anginal symptoms or ischemic EKG changes. Most likely secondary to acute renal insufficiency severe acute hypoxic respiratory failure, pulmonary edema with demand ischemia. Unlikely acute coronary syndrome and/or plaque rupture. Recheck troponin. If further significant increase consider 48 hour systemic anticoagulation with very close observation of H&H. No evidence of active bleed although patient has chronic anemia intermittent transfusions. Otherwise, aspirin 81 mg daily reasonable for now. No wall motion abnormalities on echocardiogram. o indication for ischemic evaluation at this time. (2) Acute respiratory failure with hypoxia: Code(s): J96.01 - Acute respiratory failure with hypoxia Status: Acute Assessment and Plan: Improving with noninvasive positive-pressure ventilation, diuresis. Initial concern for transfusion related acute lung injury or TACO. Patient responding well to current therapy. Continue diuresis as tolerated. Monitor renal function electrolytes closely. EF 65-70%. Continue broad-spectrum antibiotics. Last Lasix 40 mg IV 820 at 11:54 a.m. (3) Pulmonary edema: Qualifiers: Chronicity: acute Qualified Code(s): J81.0 - Acute pulmonary edema Code(s): J81.1 - Chronic pulmonary edema Status: Acute Assessment and Plan: As above, improving with therapy. COVID pending. (4) Myelodysplastic syndrome: Code(s): D46.9 - Myelodysplastic syndrome, unspecified Status: Acute Assessment and Plan: Chronic. Deferred to primary service for management. (5) Anemia: Qualifiers: Anemia type: bone marrow failure Code(s): D64.9 - Anemia, unspecified Status: Acute Assessment and Plan: Follow H&H, stable. Status post transfusion 2 units PRBC in the past 48 hours. (6) Kidney disease, chronic, stage III (GFR 30-59 ml/min): Code(s): N18.3 - Chronic kidney disease, stage 3 (moderate) Status: Acute Assessment and Plan: Monitor renal function closely. History of Present Illness History of Present Illness Consult date/time: Date of service: 05/21/21 16:07 Cardiology consultation at the request of Dr. Abdi for opinion regarding elevated troponin Requesting physician: Hu Abdi MD Consult reason: Other (Elevated troponin) Reason For Visit: Pulmonary Edema Narrative: Patient is a pleasant 86-year-old female with a history of myelodysplastic syndrome, mild fibrosis, anemia, hypertension, dyslipidemia, hypothyroidism, chronic kidney disease stage 3 who presented to the emergency department with complaint of shortness of breath and hypoxia. Patient was transfused 2 units packed red blood cells on May 19 and the following night she became short of breath and was brought to the emergency department for chest x-ray revealed diffuse extensive pulmonary edema for which he was given IV Lasix and placed on BiPAP with 100% oxygen. According to the records a caregiver was positive for COVID-19 2 weeks prior to patient's exposure and the patient's daughter recently tested positive for COVID-19. It is noted the patient has not received her COVID vaccinations. Currently patient denies any complaints of chest pain or shortness of breath and feels much better. She states she is fine but she was reminded to how sick and hypoxic she was initially to which she seemed surprised. She is currently off BiPAP remains on oxygen supplementation. Patient denies any prior history of chest pain, CAD, CHF, pulmonary embolism. She denies any bleeding complications. Serial troponins obtained less than 0.012, 0.214, 0.466 from May 21. Twelve EKG is without acute ischemic changes. 2D echocardiogram EF 65-70% with
[2021-05-21 17:44] LABS: Add Urine Microscopic? NO; Appearance Urine Clear (Clear); Bilirubin Urine Negative (Negative); Blood Urine Negative (Negative); Color Urine Straw (Yellow); Glucose Urine UA Negative (Negative); Ketones Urine Negative (Negative); Leukocyte Esterase Ur Negative LEU/UL (NEGATIVE); Nitrate Urine Negative (Negative); Protein Urine Negative (Negative); Specific Grav Ur 1.009 (1.001-1.035); Urobilinogen Urine Negative mg/dL (<2.0)
[2021-05-21 20:11] LABS: SARS-CoV-2 RNA PCR Positive
[2021-05-22] VITALS (12 sets, daily range): BP systolic 125–146; BP diastolic 58–92; PULSE 74–94; RESP 16–25; TEMP 36–36.8; O2SAT 95–100
[2021-05-22] MEDS: CENTRAL LINE FLUSH 10 ML IV PUSH ×4 (00:21→21:29)
[2021-05-22] MEDS: LEVOTHYROXINE SODIUM 50 MCG TABLET PO (06:02)
[2021-05-22 06:31] LABS: Mean Corpuscular HGB Conc 30.8 g/dl (32-36); Mean Corpuscular Hemoglobin 29.1 pg (26-34); Mean Corpuscular Volume 94.5 fl (80-100); Mean Platelet Volume 11.3 fl (7.4-10.4); Platelet Count Result 302 k/mm3 (150-375); Red Blood Count 2.75 M/mm3 (4.2-5.4); Red Cell Distribution Width 21.2 % (11.5-14.5); White Blood Count 20.1 K/mm3 (4.5-10.0)
[2021-05-22 06:52] LABS: Anion Gap 7 mmol/L (8-16); Blood Urea Nitrogen 33 mg/dL (7-17); Calcium 8.3 mg/dL (8.4-10.2); Carbon Dioxide 25 mmol/L (22-30); Chloride 105 mmol/L (98-107); Estimated CRCL calculation 26 ml/min; Estimated Glomerular Filt Rate 39; Glucose 98 mg/dL (65-110); Potassium 3.9 mmol/L (3.4-5.0); Sodium 137 mmol/L (137-145)
[2021-05-22 07:02] LABS: Troponin I 0.277 ng/mL (0.000-0.034)
[2021-05-22 09:53] LABS: Band Neutrophils Percent 3 % (0-6); Lymphocytes Absolute Manual 2.41 K/mm3 (1.1-4.5); Monocytes Percent Manual 3 % (3-9); Neutrophils Absolute Manual 17.08 K/mm3 (1.7-7.2); Neutrophils Percent Manual 82 % (46-73); Nucleated Red Blood Cells 1 %; Total Cells Counted 100
[2021-05-22 09:55] LABS: Anisocytosis 1+ (NORMAL); Hypochromasia 1+ (NORMAL); Ovalocytes 2+ (NORMAL); Platelet Estimate Adequate (Adequate)
--- NOTE | 2021-05-22 11:32 | PM.PNCARD ---
Progress Note: A&P Additional Plan SOB is likely non cardiac and mostly related to COVID-19 pneumonia, stable o2 requirement at 7 L HFNC, Mildly elevated trop with no evidence of ACS (no chest pain or dynamic EKG changes) likely related to acute resp failure, can't rule out underlying CAD as contributing factor but patient don't accept invasive intervention if needed. SHe had Hx of MDS and require intermittent blood transfusion. Normal EF Plan resume home medications of oral lasix and ACEI lisinopril 20 mg daily Subjective Date/time seen: 05/22/21 11:32 Interval history: SOB is improving but still present with mild activity Tele: SR 90s No acute events overnight Review of Systems Review of Systems: All systems reviewed & are unremarkable except as noted in HPI and below Exam Const: General: comfortable and no acute distress Other: Able to lie flat HENMT: General nose exam: Normal nares present and no epistaxis Mouth: Yes moist mucous membranes Eyes: Sclera: sclerae normal Pupils: Equal, round and reactive pupils present Neck: Neck: supple and no JVD Carotids: no bruits Resp: Auscultation: crackles bilateral and diffuse and lung sounds not diminished Other: No chest wall tenderness Cardio: Rate: regular rate Rhythm: regular rhythm Heart sounds: no gallops, no murmurs and no rubs GI: GI Palp: Yes Soft to palpation and No Tenderness to palpation present (GI) Auscultation: normal bowel sounds Skin: General skin exam: normal color, rashes and/or lesions noted and no erythema Other: Warm Neuro: Cranial nerves: Yes Equal, round and reactive pupils present Speech: normal speech Other: No obvious focal deficit or facial asymmetry Extrem: General: no edema Other: Normal capillary refills Intact distal pulses. Objective Data Vital Signs Vital Signs: Vital Signs - 24 hr 05/21/21 12:00 05/21/21 13:14 05/21/21 13:25 Temperature 37.2 C Pulse Rate 75 Respiratory Rate 22 H Blood Pressure 111/54 L Pulse Oximetry 95 96 95 05/21/21 14:00 05/21/21 16:00 05/21/21 16:01 Temperature 37.0 C Pulse Rate 73 79 Respiratory Rate 20 22 H Blood Pressure 117/53 L 117/60 Pulse Oximetry 96 92 97 05/21/21 18:00 05/21/21 20:00 05/21/21 22:00 Temperature Pulse Rate 91 81 78 Respiratory Rate 26 H 21 H 20 Blood Pressure 134/54 L 127/56 L 134/57 L Pulse Oximetry 91 97 96 05/22/21 00:00 05/22/21 02:00 05/22/21 04:00 Temperature Pulse Rate 79 86 86 Respiratory Rate 23 H 24 H 22 H Blood Pressure 125/58 L 131/62 146/63 H Pulse Oximetry 96 96 98 05/22/21 06:00 05/22/21 08:00 Temperature Pulse Rate 89 87 Respiratory Rate 21 H 21 H Blood Pressure 142/67 H Pulse Oximetry 98 98 Intake/Output Intake/Output: Intake & Output 05/19/21 05/20/21 05/21/21 05/22/21 23:59 23:59 23:59 23:59 Intake Total 971.5 Output Total 2650 850 Balance -1678.5 -850 Meds/Results Medications: Active Medications Generic Name Dose Route Start Last Admin Trade Name Freq PRN Reason Stop Dose Admin Albuterol 2.5 mg 05/22/21 14:00 Albuterol Sulfate Neb 2.5 Mg/0.5 Ml Inh INHALATION Q6HRT YENNY Budesonide 0.5 mg 05/22/21 20:00 Budesonide Respule Neb 0.5 Mg/2 Ml Amp INHALATION Q12HRT [facility] Dexamethasone Sodium Phosphate 6 mg 05/22/21 09:00 Dexamethasone Sod Phos Inj 10 Mg/Ml 1 Ml Vial IV PUSH 05/31/21 09:01 DAILY [facility] Ceftriaxone Sodium/Dextrose 1 gm in 50 mls @ 100 mls/hr 05/21/21 09:00 05/22/21 09:12 Rocephin 1 Gm/D5w 50 Ml IVPB 100 mls/hr Q24H YENNY Administration Azithromycin 500 mg in 250 mls @ 250 mls/hr 05/21/21 09:00 05/22/21 09:11 Zithromax IVPB 250 mls/hr Q24H YENNY Administration Vancomycin HCl 1,000 mg in 250 mls @ 250 mls/hr 05/21/21 10:00 05/21/21 16:11 Vancomycin 1,000 Mg/D5w 250 Ml IVPB Infused Q36H YENNY Infusion Remdesivir 200 mg in 250 mls @ 250 mls/hr 08/21/21 10:21 IVPB 05/22/21 11:20 ONCE ONE Remdesiv
[2021-05-22] MEDS: FUROSEMIDE INJ 40 MG/4 ML VIAL IV PUSH (12:06)
[2021-05-22 12:37] LABS: INR 1.4; Prothrombin Time 16.5 Seconds (11.1-14.7)
[2021-05-22 12:38] LABS: Alanine Aminotransferase 23 U/L (4-35); Estimated CRCL calculation 28 ml/min; Estimated Glomerular Filt Rate 43
--- NOTE | 2021-05-22 13:21 | WPDINTPN ---
Progress Note: A&P Assessment and Plan (1) Acute respiratory failure with hypoxia: Code(s): J96.01 - Acute respiratory failure with hypoxia Status: Acute Assessment and Plan: Acute respiratory failure status post transfusion on 05/19/2021. Patient has a history of transfusion reactions. -chest x-ray shows bilateral diffuse infiltrates could be related to TRALI or TACO -patient diuresed well with Lasix yesterday 05/21, will diurese again today -patient also started on azithromycin, ceftriaxone vancomycin (2) COVID-19: Code(s): U07.1 - COVID-19 Status: Acute Assessment and Plan: Patient has had exposure to a caregiver and daughter who were COVID positive -SARS-CoV-2 PCR positive on 05/21/2021 -start patient on dexamethasone remdesivir -continue droplet, airborne and contact isolation/precautions (3) Kidney disease, chronic, stage III (GFR 30-59 ml/min): Code(s): N18.3 - Chronic kidney disease, stage 3 (moderate) Status: Acute Assessment and Plan: Patient with history of chronic kidney disease, (creatinine on 04/22/2020 was 1.0) -creatinine on this admission is 1.5 -creatinine improving, 1.2 this morning -will repeat diuresis -continue to monitor urine output, renal function and electrolytes (4) Myelodysplastic syndrome: Code(s): D46.9 - Myelodysplastic syndrome, unspecified Status: Acute Assessment and Plan: History of myelodysplastic syndrome with myelofibrosis, follows with Dr. Lopez Additional Plan Discussed with patient updated with her condition and plan of care. She is aware of the positive COVID results. Code status: DNR Critical care time spent: 32 minute This dictation may have been done utilizing a voice recognition system. Attempts have been made to correct errors. However, there may be uncorrected grammatical, spelling, and recognition errors present. Due to a high probability of clinically significant, life threatening deterioration, the patient required my highest level of preparedness to intervene emergently and I personally spent this critical care time directly and personally managing the patient. This critical care time included obtaining a history; examining the patient; pulse oximetry; ordering and review of studies; arranging urgent treatment with development of a management plan; evaluation of patient's response to treatment; frequent reassessment; and discussions with other providers. It was exclusive of separately billable procedures and treating other patients and teaching time. Please see Assessment and Plan section and the rest of the note for further information on patient assessment and treatment Subjective Date/time seen: 05/22/21 13:21 Interval history: Reason for consult: Acute hypoxic respiratory failure, pulmonary edema, SARs CoV 2 PCR positive 05/22/2021: Patient seen and examined, on 7 L nasal cannula, states her breathing is much improved. Hemodynamically stable, afebrile. Patient denies any chest pain, shortness of breath, abdominal pain, nausea, vomiting, diarrhea, denies any is loss of sense of taste or smell. She does cannot believe that she is positive for COVID despite her caregiver and her sister being COVID positive. Urine output has been good in response to diuresis. Tolerating p.o. diet Review of Systems Review of Systems: All systems reviewed & are unremarkable except as noted in HPI and below Exam Const: General: comfortable and no acute distress HENMT: Mouth: Yes moist mucous membranes Other: On nasal cannula Eyes: Sclera: sclerae normal Pupils: Equal, round and reactive pupils present Neck: Neck: supple Thyroid: thyroid normal Lymphatic: lymphadenopathy not noted Resp: Auscultation: rhonchi and diminished lung sounds Other: Coarse breath sounds bilaterally Cardio: Rate: regular rate Rhythm: regular rhythm GI: Inspection: non-distended GI Palp: Yes Soft to palpation and No Tend
[2021-05-22] MEDS: IPRATROPIUM BR 0.02% INH SOLN 0.5 MG/2.5 ML VIAL INHALATION ×2 (14:10→20:57)
[2021-05-22] MEDS: ALBUTEROL SULFATE NEB 2.5 MG/0.5 ML INH INHALATION ×2 (14:11→20:56)
[2021-05-22] MEDS: REMDESIVIR 200 MG/NS 250 ML 200 MG/250 ML BAG 250 MG IVPB (15:39)
--- NOTE | 2021-05-22 15:57 | PC.NURSE ---
This patient, José Miguel Chan, was received from [ICU] on 05/22/21 at 1555. Patient/family oriented to unit policies and routines
--- NOTE | 2021-05-22 16:53 | PC.NURSE ---
This patient, José Miguel Chan, was transferred to [ 329] on 05/22/21 at 1653. Personal belongings sent with patient. Report given to [HÉCTOR Prakash ]. Appropriate documentation sent with patient.
[2021-05-22] MEDS: BUDESONIDE RESPULE NEB 0.5 MG/2 ML AMP INHALATION (20:57)
[2021-05-22] MEDS: MAG HYDROX/AL HYDROX/SIMETH 30 ML UDC PO (23:20)
[2021-05-22] MEDS: MELATONIN 5 MG TABLET PO (23:20)
[2021-05-23] VITALS (12 sets, daily range): BP systolic 102–147; BP diastolic 54–65; PULSE 62–81; RESP 16–20; TEMP 35.9–36.4; O2SAT 93–98
[2021-05-23 04:04] LABS: INR 1.2; Prothrombin Time 14.8 Seconds (11.1-14.7)
[2021-05-23 04:06] LABS: Alanine Aminotransferase 21 U/L (4-35); Estimated CRCL calculation 31 ml/min; Estimated Glomerular Filt Rate 47
[2021-05-23] MEDS: CENTRAL LINE FLUSH 10 ML IV PUSH ×3 (06:00→21:22)
[2021-05-23] MEDS: LEVOTHYROXINE SODIUM 50 MCG TABLET PO (06:14)
[2021-05-23] MEDS: BUDESONIDE RESPULE NEB 0.5 MG/2 ML AMP INHALATION (09:29)
[2021-05-23] MEDS: ALBUTEROL SULFATE NEB 2.5 MG/0.5 ML INH INHALATION ×2 (09:29→15:02)
[2021-05-23] MEDS: IPRATROPIUM BR 0.02% INH SOLN 0.5 MG/2.5 ML VIAL INHALATION ×2 (09:29→15:02)
[2021-05-23] MEDS: GABAPENTIN 300 MG CAPSULE PO ×3 (09:52→16:59)
[2021-05-23] MEDS: FUROSEMIDE 20 MG TABLET PO (09:53)
[2021-05-23] MEDS: PANTOPRAZOLE 40 MG TABLET PO (09:53)
[2021-05-23] MEDS: lisinopriL 20 MG TABLET PO (09:53)
[2021-05-23] MEDS: REMDESIVIR 100 MG/NS 250 ML 100 MG/250 ML BAG 250 MG IVPB (10:15)
--- NOTE | 2021-05-23 15:34 | PM.IMPN ---
Progress Note: A&P Assessment and Plan (1) Acute respiratory failure with hypoxia: Code(s): J96.01 - Acute respiratory failure with hypoxia Status: Acute Assessment and Plan: Acute respiratory failure status post transfusion on 05/19/2021. Patient has a hx of transfusion reactions and pulmonary edema. -chest x-ray shows bilateral diffuse infiltrates could be related to TRALI or TACO. 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 -patient diuresed well with IV lasix and has been transitioned to oral lasix. -Could also be due to COVID as well. Pt is unclear about her hx with COVID. She said she has never tested positive before but thinks she had it a few months back when her daughter had it and she had lost her sense of taste and smell. PCR is positive. -Will stop vanc, continue ceftriaxone and azithromycin. -Consider PE but since she is improving with the above tx, seems to be less likely. Will montiro and if she doesn't improve or worsens, consider CTA. Will obtain LE u/s. (2) COVID-19: Code(s): U07.1 - COVID-19 Status: Acute Assessment and Plan: Patient has had exposure to a caregiver and daughter who were COVID positive months ago -SARS-CoV-2 PCR positive on 05/21/2021 -as stated above, timeline is questionable. Could be acute vs sub acute infection. Last fever 05/21 -Continue dexamethasone and remdesivir -continue droplet, airborne and contact isolation/precautions -add lovenox 40meq, monitor for blood loss. (3) Kidney disease, chronic, stage III (GFR 30-59 ml/min): Code(s): N18.3 - Chronic kidney disease, stage 3 (moderate) Status: Acute Assessment and Plan: Patient with history of chronic kidney disease, (creatinine on 04/22/2020 was 1.0) -creatinine on this admission is 1.5 now 1.1 -continue lasix oral (4) Myelodysplastic syndrome: Code(s): D46.9 - Myelodysplastic syndrome, unspecified Status: Acute Assessment and Plan: History of myelodysplastic syndrome with myelofibrosis, follows with Dr. Lopez Time Spent With Patient Time with patient: 25 - 35 minutes Subjective Date/time seen: 05/23/21 15:34 Interval history: Pt is a 86-year-old female here for hypoxia. Patient was seen today and is doing okay. she says she has had a lot of improvement since being here and does not really feel short of breath and does not have a cough. She says she never lays flat so she is unsure if she is able to. She has been eating and drinking okay without any issue. She has no swelling in her lower extremities. She is very vague about time lines but it sounds like the patient was exposed to COVID about 3 months ago where her daughter and caregiver were positive. The patient also lost her smell and taste at that time but never had any respiratory symptoms. She tested negative at that time and she was never vaccinated. Review of Systems Review of Systems: All systems reviewed & are unremarkable except as noted in HPI and below Exam Narrative: General: Well developed well nourished patient in NAD HEENT: normocephalic Neck: supple Neuro: Alert and oriented x4 CV:RRR Resp: Mild crackles at the bases, relatively clear to auscultation. No conversational dyspnea. on 4 L of oxygen Abd: Soft, non distended. No pain to palpation. Positive bowel sounds Extremities: No swelling, erythema, or pain to palpation. Objective Data Vital Signs Vital Signs: Vital Signs - 24 hr 05/22/21 15:55 05/22/21 20:00 05/22/21 21:03 Temperature 98.1 F 96.8 F L Pulse Rate 79 74 76 Respiratory Rate 18 18 16 Blood Pressure 143/71 H 137/72 Pulse Oximetry 95 98 05/22/21 21:13 05/23/21 00:00 05/23/21 08:00 Temperature 97.5 F L 97.3 F L Pulse Rate 80 78 64 Respiratory Rate 16 18 20 Blood Pressure 134/56 L 102/54 L Pulse Oximetry 98 98 05/23/21 09:31 05/23/21 09:45 05/23/21 10:25 Temperature Pulse Rate 76 81 Respiratory Rate 16 16 Blood Pressure
[2021-05-23] MEDS: ENOXAPARIN 40 MG/0.4 ML SYRINGE SUB-Q (16:59)
--- NOTE | 2021-05-23 22:30 | PCRCNOTE ---
Window of time for administration has passed. See next scheduled administration.
[2021-05-24] VITALS (14 sets, daily range): BP systolic 124–143; BP diastolic 48–65; PULSE 58–86; RESP 14–22; TEMP 35.7–36.5; O2SAT 95–99
[2021-05-24] MEDS: ALBUTEROL SULFATE NEB 2.5 MG/0.5 ML INH INHALATION ×4 (02:06→20:21)
[2021-05-24] MEDS: IPRATROPIUM BR 0.02% INH SOLN 0.5 MG/2.5 ML VIAL INHALATION ×4 (02:07→20:21)
[2021-05-24] MEDS: LEVOTHYROXINE SODIUM 50 MCG TABLET PO (05:54)
[2021-05-24] MEDS: CENTRAL LINE FLUSH 10 ML IV PUSH ×3 (05:54→22:01)
[2021-05-24 07:14] LABS: Hematocrit 30.4 % (37.0-47.0)
[2021-05-24 07:25] LABS: Alanine Aminotransferase 22 U/L (4-35); Anion Gap 9 mmol/L (8-16); Blood Urea Nitrogen 35 mg/dL (7-17); Calcium 8.9 mg/dL (8.4-10.2); Carbon Dioxide 25 mmol/L (22-30); Chloride 102 mmol/L (98-107); Estimated CRCL calculation 30 ml/min; Estimated Glomerular Filt Rate 47; Glucose 87 mg/dL (65-110); Sodium 136 mmol/L (137-145)
[2021-05-24 07:36] LABS: INR 1.2; Prothrombin Time 15.3 Seconds (11.1-14.7)
[2021-05-24 07:38] LABS: D Dimer 3.36 ug/mL (<0.48)
[2021-05-24] MEDS: FUROSEMIDE 20 MG TABLET PO (08:06)
[2021-05-24] MEDS: lisinopriL 20 MG TABLET PO (08:06)
[2021-05-24] MEDS: ENOXAPARIN 40 MG/0.4 ML SYRINGE SUB-Q (08:06)
[2021-05-24] MEDS: GABAPENTIN 300 MG CAPSULE PO ×3 (08:06→18:10)
[2021-05-24] MEDS: PANTOPRAZOLE 40 MG TABLET PO (08:06)
[2021-05-24] MEDS: BUDESONIDE RESPULE NEB 0.5 MG/2 ML AMP INHALATION ×2 (09:03→20:21)
[2021-05-24] MEDS: ALTEPLASE 2 MG VIAL (CATHFLO) IV PUSH (09:57)
[2021-05-24] MEDS: REMDESIVIR 100 MG/NS 250 ML 100 MG/250 ML BAG 250 MG IVPB (10:35)
--- NOTE | 2021-05-24 10:41 | PM.PNCARD ---
Progress Note: A&P Assessment and Plan (1) Elevated troponin: Code(s): R77.8 - Other specified abnormalities of plasma proteins Status: Acute Assessment and Plan: Mild troponin elevation without anginal symptoms or ischemic EKG changes. Most likely secondary to acute renal insufficiency severe acute hypoxic respiratory failure, pulmonary edema with demand ischemia. Unlikely acute coronary syndrome and/or plaque rupture. Recheck troponin. If further significant increase consider 48 hour systemic anticoagulation with very close observation of H&H. No evidence of active bleed although patient has chronic anemia intermittent transfusions. Otherwise, aspirin 81 mg daily reasonable for now. No wall motion abnormalities on echocardiogram. o indication for ischemic evaluation at this time. (2) Acute respiratory failure with hypoxia: Code(s): J96.01 - Acute respiratory failure with hypoxia Status: Acute Assessment and Plan: Improving. Now on O2 per nasal cannula. Initial concern for transfusion related acute lung injury or TACO. Patient responding well to current therapy. Continue diuresis as tolerated. Monitor renal function electrolytes closely. EF 65-70%. Continue broad-spectrum antibiotics. (3) Pulmonary edema: Qualifiers: Chronicity: acute Qualified Code(s): J81.0 - Acute pulmonary edema Code(s): J81.1 - Chronic pulmonary edema Status: Acute Assessment and Plan: As above, improving with therapy. COVID still pending. (4) Myelodysplastic syndrome: Code(s): D46.9 - Myelodysplastic syndrome, unspecified Status: Acute Assessment and Plan: Chronic. Deferred to primary service for management. (5) Anemia: Qualifiers: Anemia type: bone marrow failure Code(s): D64.9 - Anemia, unspecified Status: Acute Assessment and Plan: Follow H&H, stable. Status post transfusion 2 units PRBC in the past 48 hours. (6) Kidney disease, chronic, stage III (GFR 30-59 ml/min): Code(s): N18.3 - Chronic kidney disease, stage 3 (moderate) Status: Acute Assessment and Plan: Monitor renal function closely. Additional Plan SOB is likely non cardiac and mostly related to COVID-19 pneumonia, stable o2 requirement at 2L NC, Mildly elevated trop with no evidence of ACS (no chest pain or dynamic EKG changes) likely related to acute resp failure, can't rule out underlying CAD as contributing factor but patient don't accept invasive intervention if needed. SHe had Hx of MDS and require intermittent blood transfusion. Normal EF Plan resume home medications of oral lasix and ACEI lisinopril 20 mg daily. No active cardiac issues at this time. We will sign off for now. Thank you for asking us to see this patient - please do not hesitate to contact us if we can help in the care of this patient in any way. Subjective Date/time seen: 05/24/21 10:41 Cardiology follow up for elevated troponin Interval history: Date of service 05/24/2021: Feeling fine today. Breathing is better, still on 2L O2 per nasal cannula. Denies chest pain. C/o being constipated. Review of Systems Review of Systems: All systems reviewed & are unremarkable except as noted in HPI and below Constitutional: Constitutional: Reports as per HPI, Reports no additional constitutional complaints and Reports fatigue Eyes: Eyes: Reports as per HPI and Reports no additional eye complaints ENT: Reports system reviewed and no additional complaints, except as documented and Reports as per HPI Cardiovascular: Cardiovascular: Reports as per HPI, Reports no additional cardiovascular complaints, Denies chest pain, Denies diaphoresis, Denies pedal edema, Denies leg edema, Denies lightheadedness, Denies palpitations and Reports dyspnea Respiratory: Respiratory: Reports as per HPI, Reports no additional respiratory complaints and Reports dyspnea Gastrointestinal: Gastr
[2021-05-24 11:19] LABS: SARS-CoV-2 IgG Non-Reactive (NonReactive)
--- NOTE | 2021-05-24 11:46 | WPDCDIQUERY2 ---
CDI Query Clarification Request -COVID 19 documented by hospitalist -05/24 CXR impression: Bilateral COVID pneumonia, mild improvement on the left - SOB is likely non cardiac and mostly related to COVID-19 pneumonia documented by cardiology Please clarify if COVID 19 pneumonia has been ruled in or ruled out.
--- NOTE | 2021-05-24 12:44 | PDONCCN ---
HPI - Date of Consult Date/Time: 05/24/21 12:44 Requesting Physician: Lenora Childress PA-C Primary Care Provider: Bo Caceres, DO - Consult Narrative Reason for consult: Myelodysplastic syndrome Narrative: José Miguel Chan is a 86 year old female with history of myelodysplastic syndrome along with myelofibrosis diagnosed almost 4 years ago and has been seen by Dr. Lopez. Patient has received multiple lines of therapy and the last treatment was with Dacogen roughly about early this year. Patient was admitted to the hospital in [facility] for about 6 weeks duration for respiratory failure and there was concern of COVID infection at that time. Patient now came into the hospital with increasing shortness of breath without any chest pain. Chest x-ray showed acute flash pulmonary edema and patient was subsequently placed on BiPAP. Patient had received 2 units of packed red blood cell prior to the admission to the hospital. According to the patient she feels good when her hemoglobin is about 8. She denies any bleeding including melena hematochezia. She denies any recent weight loss. Review of Systems - Review of Systems All systems reviewed & are unremarkable except as noted in HPI and bel - Neurologic Reports system reviewed and no additional complaints, except as documented, Reports confusion PMFSH Medical History: Medical History (Last Reviewed 05/21/21 @ 16:12 by Fausto Pemberton MD) Anemia Arthritis Carpal tunnel syndrome Cataracts, bilateral Essential (primary) hypertension Ganglion cyst of volar aspect of right wrist Hemorrhoid History of blood transfusion Hyperlipidemia Hypothyroidism Kidney disease, chronic, stage III (GFR 30-59 ml/min) Post-menopausal UTI (urinary tract infection) Surgical History: Surgical History (Last Reviewed 05/21/21 @ 16:12 by Fausto Pemberton MD) History of bunionectomy of both great toes History of cataract surgery History of repair of rotator cuff Right Family History: Family History (Last Reviewed 05/21/21 @ 16:12 by Fausto Pemberton MD) Father Family history of lung cancer, Onset Age: 56 Patient's father is Mother Patient's mother is - Social History Social History: Social History (Last Reviewed 05/21/21 @ 16:12 by Fausto Pemberton MD) Alcohol Use: Alcohol intake: unknown Substance Use: Substance use: never Substance use type: does not use Others: Spiritual care concerns: No Smoking Status: Smoking status: Never smoker Second hand tobacco smoke exposure: No Smoking end date: 10/02/1953 Meds Home Medications Medication Instructions Recorded Confirmed Type levothyroxine 50 mcg tablet 50 mcg PO DAILY #90 tablet 11/10/20 05/21/21 Rx lisinopril 40 mg tablet 40 mg PO DAILY #90 tablet 12/08/20 05/21/21 Rx gabapentin 300 mg capsule 300 mg PO TID 04/26/21 05/21/21 History pantoprazole 40 mg tablet,delayed 40 mg PO QAM 04/26/21 05/21/21 History release furosemide 20 mg PO DAILY 05/21/21 05/21/21 History pyridoxine (vitamin B6) 250 mg PO DAILY 05/21/21 05/21/21 History Allergies Allergy/AdvReac Type Severity Reaction Status Date / Time hydrocodone Allergy Severe vomiting Verified 05/21/21 00:43 codeine Allergy Mild Hives Verified 05/21/21 00:43 Sulfa (Sulfonamide Allergy Mild Rash Verified 05/21/21 00:43 Antibiotics) MUSCLE RELAXERS Allergy Mild rapid Uncoded 05/21/21 00:43 heart beat Results - Labs CBC & Chem 7: 05/24/21 06:10 05/24/21 06:10 Labs: Short CBC 05/24/21 Range/Units 06:10 Hgb 9.0 L (12.0-15.0) g/dL Hct 30.4 L (37.0-47.0) % BMP 05/24/21 06:10 Sodium 136 L Potassium 4.0 Chloride 102 Carbon Dioxide 25 BUN 35 H Creatinine 1.10 H Glucose 87 Calcium 8.9 Liver Function 05/24/21 Range/Units 06:10 ALT 22 (4-35) U/L Assessment and Plan - A
--- NOTE | 2021-05-24 15:16 | PM.IMPN ---
Progress Note: A&P Assessment and Plan (1) Acute respiratory failure with hypoxia: Code(s): J96.01 - Acute respiratory failure with hypoxia Status: Acute Assessment and Plan: Acute respiratory failure status post transfusion on 05/19/2021. Patient has a hx of transfusion reactions and pulmonary edema. -chest x-ray shows bilateral diffuse infiltrates could be related to TRALI or TACO. 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 -patient diuresed well with IV lasix and has been transitioned to oral lasix. -Could also be due to COVID as well. Pt is unclear about her hx with COVID. She said she has never tested positive before but thinks she had it a few months back when her daughter had it and she had lost her sense of taste and smell. PCR is positive. -Will stop vanc, continue ceftriaxone and azithromycin. -Consider PE but since she is improving with the above tx, seems to be less likely. Will monitor and if she doesn't improve or worsens, consider CTA. 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 (3) Kidney disease, chronic, stage III (GFR 30-59 ml/min): Code(s): N18.3 - Chronic kidney disease, stage 3 (moderate) Status: Acute Assessment and Plan: Patient with history of chronic kidney disease, (creatinine on 04/22/2020 was 1.0) -creatinine on this admission is 1.5 now 1.1 -continue lasix oral (4) Myelodysplastic syndrome: Code(s): D46.9 - Myelodysplastic syndrome, unspecified Status: Acute Assessment and Plan: History of myelodysplastic syndrome with myelofibrosis, follows with Dr. Lopez -hgb stable (5) Elevated troponin: Code(s): R77.8 - Other specified abnormalities of plasma proteins Status: Acute Assessment and Plan: No CP on exam -cardiology following -no signs of ACS or wall motion abnormalities on echo -cardiology recommended asa, will start (6) Pneumonia due to COVID-19 virus: Code(s): U07.1 - COVID-19; J12.82 - Pneumonia due to coronavirus disease 2019 Status: Acute Assessment and Plan: As above -wean o2 Subjective Date/time seen: 05/24/21 15:16 Interval history: Pt is a 86-year-old female here for hypoxia. Patient was seen today and doing well. She had no complaints. She has been up in going to the bathroom and does not have any shortness of breath. She says if she really exerts herself she has some shortness of breath but is feeling much better than when she did on admission. Her cough is minimal. She is eating and drinking well without issue. She denies nausea, vomiting, fevers, chills, abdominal pain or leg swelling. Exam Narrative: General: Well developed well nourished patient in NAD HEENT: normocephalic Neck: supple Neuro: Alert and oriented x4 CV:RRR Resp: Relatively clear to auscultation. No conversational dyspnea. on 2 L of oxygen Abd: Soft, non distended. No pain to palpation. Positive bowel sounds Extremities: No swelling, erythema, or pain to palpation. Objective Data Vital Signs Vital Signs: Vital Signs - 24 hr 05/23/21 16:00 05/23/21 20:00 05/23/21 22:26 Temperature 96.6 F L 96.7 F L Pulse Rate 80 62 62 Respiratory Rate 20 18 18 Blood Pressure 117/65 119/54 L Pulse Oximetry 95 95 95 05/24/21 00:00 05/24/21 02:07 05/24/21 02:18 Temperature 96.7 F L Pulse Rate 66 72 70 Respiratory Rate 18 16 16 Blood Pressure 129/57 L Pulse Oximetry 97 05/24/21 04:00 05/24/21 08:00 05/24/21 09:05 Te
[2021-05-25] VITALS (12 sets, daily range): BP systolic 110–167; BP diastolic 46–68; PULSE 56–89; RESP 14–20; TEMP 36.2–37.3; O2SAT 93–97
[2021-05-25] MEDS: IPRATROPIUM BR 0.02% INH SOLN 0.5 MG/2.5 ML VIAL INHALATION ×4 (02:45→21:10)
[2021-05-25] MEDS: ALBUTEROL SULFATE NEB 2.5 MG/0.5 ML INH INHALATION ×4 (02:53→21:10)
[2021-05-25] MEDS: CENTRAL LINE FLUSH 10 ML IV PUSH ×3 (06:18→20:12)
[2021-05-25] MEDS: LEVOTHYROXINE SODIUM 50 MCG TABLET PO (06:19)
[2021-05-25 06:47] LABS: Hematocrit 30.2 % (37.0-47.0); Hemoglobin 8.9 g/dL (12.0-15.0); Mean Corpuscular HGB Conc 29.5 g/dl (32-36); Mean Corpuscular Hemoglobin 28.3 pg (26-34); Mean Corpuscular Volume 95.9 fl (80-100); Mean Platelet Volume 11.2 fl (7.4-10.4); Platelet Count Result 455 k/mm3 (150-375); Red Blood Count 3.15 M/mm3 (4.2-5.4); Red Cell Distribution Width 21.5 % (11.5-14.5); White Blood Count 27.7 K/mm3 (4.5-10.0)
[2021-05-25 06:56] LABS: INR 1.2; Prothrombin Time 15.1 Seconds (11.1-14.7)
[2021-05-25 07:55] LABS: Alanine Aminotransferase 22 U/L (4-35); Albumin Level 3.8 g/dL (3.5-5.1); Alkaline Phosphatase 91 U/L (38-126); Anion Gap 8 mmol/L (8-16); Aspartate Amino Transferase 36 U/L (14-36); Bilirubin,Total 0.6 mg/dL (0.2-1.3); Blood Urea Nitrogen 33 mg/dL (7-17); Calcium 8.9 mg/dL (8.4-10.2); Carbon Dioxide 24 mmol/L (22-30); Chloride 104 mmol/L (98-107); Estimated CRCL calculation 33 ml/min; Estimated Glomerular Filt Rate 53; Glucose 79 mg/dL (65-110); Potassium 4.3 mmol/L (3.4-5.0); Sodium 136 mmol/L (137-145)
[2021-05-25 08:36] LABS: Band Neutrophils Percent 7 % (0-6); Eosinophils Absolute Manual 0.27 K/mm3 (0.02-0.5); Eosinophils Percent Manual 1 % (0-4); Lymphocytes Absolute Manual 0.83 K/mm3 (1.1-4.5); Monocytes Absolute Manual 2.21 K/mm3 (0.1-0.90); Monocytes Percent Manual 8 % (3-9); Neutrophils Absolute Manual 24.37 K/mm3 (1.7-7.2); Neutrophils Percent Manual 81 % (46-73); Platelet Estimate Adequate (Adequate); Total Cells Counted 100
[2021-05-25 08:37] LABS: Anisocytosis 1+ (NORMAL); Hypochromasia 1+ (NORMAL); Poikilocytosis 1+ (NORMAL); Polychromasia 1+ (NORMAL)
[2021-05-25] MEDS: PANTOPRAZOLE 40 MG TABLET PO (08:55)
[2021-05-25] MEDS: ASPIRIN 81 MG ENTERIC TABLET PO (08:55)
[2021-05-25] MEDS: GABAPENTIN 300 MG CAPSULE PO ×3 (08:55→16:38)
[2021-05-25] MEDS: lisinopriL 20 MG TABLET PO (08:55)
[2021-05-25] MEDS: FUROSEMIDE 20 MG TABLET PO (08:55)
[2021-05-25] MEDS: ENOXAPARIN 40 MG/0.4 ML SYRINGE SUB-Q (08:56)
[2021-05-25] MEDS: BUDESONIDE RESPULE NEB 0.5 MG/2 ML AMP INHALATION ×2 (09:01→21:10)
--- NOTE | 2021-05-25 09:39 | PM.IMPN ---
Progress Note: A&P Assessment and Plan (1) Acute respiratory failure with hypoxia: Code(s): J96.01 - Acute respiratory failure with hypoxia Status: Acute Assessment and Plan: Acute respiratory failure status post transfusion on 05/19/2021. Patient has a hx of transfusion reactions and chronic pulmonary edema. -chest x-ray shows bilateral diffuse infiltrates could be related to TRALI or TACO. 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 -patient diuresed well with IV lasix and has been transitioned to oral lasix. -Could also be due to COVID as well. Pt is unclear about her hx with COVID. She said she has never tested positive before but thinks she had it a few months back when her daughter had it and she had lost her sense of taste and smell. COVID PCR is positive. -Will stop vanc, continue ceftriaxone and azithromycin - Day 2 of those. -weaning from O2 nicely, no chest pain, PE not likely. Will monitor and if she doesn't improve or worsens, consider CTA. 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 (3) Kidney disease, chronic, stage III (GFR 30-59 ml/min): Code(s): N18.3 - Chronic kidney disease, stage 3 (moderate) Status: Acute Assessment and Plan: Patient with history of chronic kidney disease, creatinine on 04/22/2020 was 1.0 and 1.0 today now. -creatinine on this admission was 1.5 , and yesterday 1.1 -continue lasix oral (4) Myelodysplastic syndrome: Code(s): D46.9 - Myelodysplastic syndrome, unspecified Status: Acute Assessment and Plan: History of myelodysplastic syndrome with myelofibrosis, -follows with Dr. Lopez diagnosed with MDS roughly about 4 years ago. lastly she was treated with hypomethylating agent in early this year. Patient has appointment to see her induction coordination power engineer next week. Patient stated that the hematologists do not want her to get the COVID vaccine due to her - I believe she is confused on this subject - but at this point with active COVID infection, she will need to wait 3 months for vaccination. -Hgb/Hct stable today = 8.9/30.2 Hemoglobin stable at 9 and 8.9 after receiving blood transfusion last week. Platelet count is eelvated at 455 and WBC count is elevated at 27.7 (likely due to COVID infection). No need for transfusion as long she as she is symptomatic and hemoglobin is more than 7. Generally she feels good if her hemoglobin is around 8. She will follow-up with the induction coordination power engineer after the discharge. (5) Elevated troponin: Code(s): R77.8 - Other specified abnormalities of plasma proteins Status: Acute Assessment and Plan: Troponin was also found to be elevated. May be due to reaction after blood transfusion. No chest pain or pressure or difficulties with breathing on exam -cardiology following, consultation on 05/24 -no signs of ACS or wall motion abnormalities on Echo -cardiology recommended ASA, started on 05/24 Clinically she has been improving. Cardiology is following. (6) Pneumonia due to COVID-19 virus: Code(s): U07.1 - COVID-19; J12.82 - Pneumonia due to coronavirus disease 2018 Status: Acute Assessment and Plan: Follow COVID plan above. -wean O2 as Sats allow. Subjective Date/time seen: 05/25/21 09:39 Interval history: José Miguel's hypoxia seems to be improving. Patient was seen today and doing better. Encouraged her to ambulate with nursing staff more, get up to chair for her meals, and to turn often
[2021-05-25] MEDS: REMDESIVIR 100 MG/NS 250 ML 100 MG/250 ML BAG 250 MG IVPB (10:19)
[2021-05-25 11:14] LABS: CRP 4.7 mg/dL (<1.0)
[2021-05-25] MEDS: SENNA/DOCUSATE SODIUM TABLET 1 TAB PO (21:24)
[2021-05-26] VITALS (12 sets, daily range): BP systolic 115–169; BP diastolic 47–73; PULSE 63–89; RESP 14–20; TEMP 36.2–37.1; O2SAT 91–97
[2021-05-26] MEDS: ALBUTEROL SULFATE NEB 2.5 MG/0.5 ML INH INHALATION ×2 (02:14→09:20)
[2021-05-26] MEDS: IPRATROPIUM BR 0.02% INH SOLN 0.5 MG/2.5 ML VIAL INHALATION ×2 (02:14→09:20)
[2021-05-26] MEDS: ACETAMINOPHEN 325 MG TABLET 650 MG PO ×2 (05:17→09:02)
[2021-05-26] MEDS: CENTRAL LINE FLUSH 10 ML IV PUSH ×2 (05:17→13:21)
[2021-05-26] MEDS: LEVOTHYROXINE SODIUM 50 MCG TABLET PO (05:18)
[2021-05-26 05:58] LABS: INR 1.3; Prothrombin Time 15.7 Seconds (11.1-14.7)
[2021-05-26 06:00] LABS: Hematocrit 29.2 % (37.0-47.0); Hemoglobin 8.5 g/dL (12.0-15.0); Mean Corpuscular HGB Conc 29.1 g/dl (32-36); Mean Corpuscular Hemoglobin 27.8 pg (26-34); Mean Corpuscular Volume 95.4 fl (80-100); Mean Platelet Volume 11.4 fl (7.4-10.4); Platelet Count Result 423 k/mm3 (150-375); Red Blood Count 3.06 M/mm3 (4.2-5.4); Red Cell Distribution Width 21.3 % (11.5-14.5); White Blood Count 23.8 K/mm3 (4.5-10.0)
[2021-05-26 06:25] LABS: Alanine Aminotransferase 21 U/L (4-35); Anion Gap 6 mmol/L (8-16); Blood Urea Nitrogen 29 mg/dL (7-17); Calcium 8.8 mg/dL (8.4-10.2); Carbon Dioxide 26 mmol/L (22-30); Chloride 104 mmol/L (98-107); Estimated CRCL calculation 34 ml/min; Estimated Glomerular Filt Rate 53; Glucose 79 mg/dL (65-110); Potassium 4.1 mmol/L (3.4-5.0); Sodium 136 mmol/L (137-145)
[2021-05-26] MEDS: GABAPENTIN 300 MG CAPSULE PO ×2 (07:57→13:21)
[2021-05-26] MEDS: ASPIRIN 81 MG ENTERIC TABLET PO (07:57)
[2021-05-26] MEDS: lisinopriL 20 MG TABLET PO (07:58)
[2021-05-26] MEDS: FUROSEMIDE 20 MG TABLET PO (07:58)
[2021-05-26] MEDS: PANTOPRAZOLE 40 MG TABLET PO (07:58)
[2021-05-26] MEDS: ENOXAPARIN 40 MG/0.4 ML SYRINGE SUB-Q (07:58)
[2021-05-26] MEDS: BUDESONIDE RESPULE NEB 0.5 MG/2 ML AMP INHALATION (09:21)
[2021-05-26] MEDS: REMDESIVIR 100 MG/NS 250 ML 100 MG/250 ML BAG 250 MG IVPB (10:20)
--- NOTE | 2021-05-26 11:28 | PCRCNOTE ---
HOME O2 EVAL COMPLETE, NO REQUIREMENTS
--- NOTE | 2021-05-26 14:15 | PM.DS ---
DS: Admitting Diagnosis Admitting Diagnosis COVID, flash pulmonary edema DS: Discharge Diagnosis Discharge Diagnosis (1) Acute respiratory failure with hypoxia: Code(s): J96.01 - Acute respiratory failure with hypoxia Status: Acute Assessment and Plan: Acute respiratory failure status post transfusion on 05/19/2021. Resolved -Patient has a hx of transfusion reactions and pulmonary edema. -chest x-ray shows bilateral diffuse infiltrates could be related to TRALI or TACO. 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 -patient diuresed well with IV lasix and has been transitioned to oral lasix. -Could also be due to COVID as well. -received short course of abx but stopped due to viral illness and pulmonary edema -Pt off o2 day of discharge -PE less likely, she improved with above tx and LE dopplers negative for DVT. 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 Lopez -Hgb/Hct stable today =8.5/29.2 -She will follow-up with the engineer steam after the discharge. (5) Elevated troponin: Code(s): R77.8 - Other specified abnormalities of plasma proteins Status: Acute Assessment and Plan: No CP throughout her stay -ASA initiated by cardiology -I recommended cardiology follow-up but the patient states that she is not interested in following with Cardiology. She is 86 years old with cancer and does not want to go undergo any treatment or procedures. She spoke to the metal cans supervisor about this -no signs of ACS or wall motion abnormalities on echo (6) Pneumonia due to COVID-19 virus: Code(s): U07.1 - COVID-19; J12.82 - Pneumonia due to coronavirus disease 2019 Status: Acute Assessment and Plan: Follow COVID plan above. -home o2 showed no need or home o2 DS: Summary Hospital Course Hospital Course: Date of service May 26, 2021 Patient is an 86-year-old female with history of MDS and pulmonary edema who received a blood transfusion who presented emergency room that next day for respiratory distress. Initial CBC showed a white blood cell count 28.0, hemoglobin 9.5, hematocrit 33.2, platelets 601. BMP showed slight GHAZALA with a creatinine 1.5, acidosis with a CO2 of 17 and glucose 270. Blood gas did reveal respiratory acidosis. She was started on BiPAP due to likely flash pulmonary edema and was tachycardic. A LASIK in nitro drip was initiated. Chest x-ray showed extensive bilateral airspace disease which may represent edema or pneumonia. Patient was admitted to the ICU and observed. Her troponin did elevate and Cardiology was consulted. They did not suggest ACS but likely due to acute hypoxic respiratory failure with edema with demand ischemia. Who was initially could consider that the patient had TACO and she improved with Lasix. She was swabbed for COVID and it appeared that she also had COVID on top of this. She was on vaccinated. She remained in the unit for only a short amount of time and transferred to the floor. She was able to be weaned off o2 after several days. She received Remdesivir, Decadron, antibiotics and Lasix therapy throughout her stay. This improved her symptoms and the day of discharge was walking around the room without oxygen without any complaints.
--- NOTE | 2021-06-01 10:56 | PC.NURSE ---
Blood cx are negative.
== END 2021-05-26 16:54 | disposition home or self-care (01) | DRG 177 ==
LOC: ANHED 03:35 → ANHICU 05:08 → ANH3MEDSUR 05-23 07:31 → ANHICU 05-27 13:27
PROVIDERS: Internal Medicine; Nurse Practitioner; Physician Assistant; Admitting Provider Internal Medicine; Emergency Provider Emergency Medicine; PCP Internal Medicine; Visit Provider Internal Medicine
DX: U07.1 COVID-19 (principal); J12.82 Pneumonia due to coronavirus disease 2019; J96.01 Acute respiratory failure with hypoxia; I12.9 Hypertensive chronic kidney disease with stage 1 through stage 4 chronic kidney disease, or unspecified chronic kidney disease; N18.30 Chronic kidney disease, stage 3 unspecified; D46.9 Myelodysplastic syndrome, unspecified; M19.90 Unspecified osteoarthritis, unspecified site; E03.9 Hypothyroidism, unspecified; E78.5 Hyperlipidemia, unspecified; G56.00 Carpal tunnel syndrome, unspecified upper limb; D63.1 Anemia in chronic kidney disease; Z66 Do not resuscitate
CPT/HCPCS: 36415; 36569; 36600; 51702; 71045; 80048; 80076; 81003; 82375; 82565; 82728; 82805; 83050; 83605; 83880; 84460; 84484; 85014; 85018; 85025; 85027; 85380; 85610; 86140; 86413; 86769; 87040; 87086; 87426; 93005; 93306; 93970; 94002; 94618; 94640; 96365; 96375; 97110; 97161; 97165; 97530; 97535; 99285; A9270; C1751; C9803; G0378; J0456; J0696; J1100; J1650; J1940; J2997; J3370; J7060; U0003; U0005

== ENCOUNTER 2021-09-29 09:07 | Outpatient (CLI) | payer MEDICARE, MEDICAID, SELFPAY ==
--- NOTE | ~2021-09-29 | US_ITS ---
EXAMINATION: US abdomen complete EXAM DATE: 09/29/2021 10:00 INDICATION: R10.11 - Right upper quadrant pain . TECHNIQUE: Multiple grayscale and Doppler images of the complete abdomen were obtained (by a technolo gist who performed the scan) and subsequently reviewed. There is no prior study for comparison. FINDINGS: The abdominal aorta is normal in caliber. Visualized portion IVC is patent. The pancreatic head a nd body are normal in appearance. The pancreatic tail is not visualized. The liver has normal echogenicity and contour. There are no focal liver lesions identified. There is no evidence of intrahepatic biliary duct dilation. Portal venous flow was seen in the hepatopedal , normal direction and has normal Doppler waveform. Common bile duct measures 4 mm, which is normal. The gallbladder wall is normal in thickness, with ex pected amount of distention. No sonographic evidence of pericholecystic fluid. There is no cholelit hiases. Technologist performing exam reports patient did not demonstrate sonographic Courtney's sign. Please note that this sign is less reliable in patients who have received pain medication. Right kidney: There is normal contour and echogenicity. It measures 10.5 x 4.5 x 6.2 centimeters. T here is right renal calyceal hyperechoic focus with shadowing and artifact, a stone measuring about 8 mm. Smaller inferior calyceal stone likely measuring 4 mm. Several renal cysts up to 1.8 cm. There is no hydronephrosis. Left kidney: There is normal contour and echogenicity. It measures 10.1 x 4.4 x 5.6 centimeters. T here are no focal renal lesions identified. There is no hydronephrosis. The spleen measures 17.8 by 8.6 centimeters, moderately to severe enlarged.. IMPRESSION: 1. Moderate to severe splenomegaly. 2. Probable nonobstructing right calyceal stones. Reviewed, dictated and finalized at location A. [employer] EQUIPMENT ASSEMBLER
== END 2021-09-29 09:08 | disposition home or self-care (01) ==
LOC: ANHIMG 09:09
PROVIDERS: PCP Internal Medicine; Visit Provider Internal Medicine
DX: R10.11 Right upper quadrant pain (principal); R16.1 Splenomegaly, not elsewhere classified; N20.0 Calculus of kidney; N28.1 Cyst of kidney, acquired
CPT/HCPCS: 76700

== ENCOUNTER 2021-11-03 08:49 | Outpatient (RCR) | payer MEDICARE, MEDICAID, SELFPAY ==
[2021-11-03 09:29] LABS: Hematocrit 22.6 % (37.0-47.0)
[2021-11-03 09:34] LABS: Hemoglobin 6.8 g/dL (12.0-15.0)
[2021-11-03 10:03] VITALS: TEMP 37.8
[2021-11-03] MEDS: ACETAMINOPHEN 325 MG TABLET 650 MG PO (10:03)
[2021-11-03] MEDS: diphenhydrAMINE HCl CAP 25 MG CAPSULE PO (10:03)
[2021-11-03] MEDS: methylPREDNISolone SOD SUCC 125 MG VIAL IV PUSH (10:04)
[2021-11-03 10:17] VITALS: BP 139/59; PULSE 69; RESP 20; TEMP 37.8; O2SAT 96
[2021-11-03 10:30] VITALS: BP 127/52; PULSE 74; RESP 18; TEMP 37.4; O2SAT 94
[2021-11-03 11:30] VITALS: BP 135/56; PULSE 70; RESP 18; TEMP 37.3; O2SAT 94
[2021-11-03 12:30] VITALS: BP 134/55; PULSE 61; RESP 16; TEMP 36.8; O2SAT 93
[2021-11-03 13:05] VITALS: BP 142/58; PULSE 62; RESP 18; TEMP 37.1; O2SAT 93
== END 2021-11-29 14:40 | disposition home or self-care (01) ==
LOC: ANHCPCTRAN 08:49
PROVIDERS: PCP Internal Medicine; Visit Provider Internal Medicine Medical Oncology
DX: D46.9 Myelodysplastic syndrome, unspecified (principal)
CPT/HCPCS: 36415; 36430; 85014; 85018; 86850; 86870; 86880; 86900; 86901; 86902; 86905; 86922; 86971; 86972; A9270; J2930; P9016

== ENCOUNTER 2021-11-05 05:39 | Inpatient (IN) | payer MEDICARE, MEDICAID, SELFPAY ==
[2021-11-05] VITALS (16 sets, daily range): BP systolic 118–149; BP diastolic 38–83; PULSE 64–104; RESP 16–28; TEMP 36.2–36.8; O2SAT 94–100; BMI 28.4
--- NOTE | ~2021-11-05 | XR_ITS ---
XR chest 1V portable 11/07/2021 06:17 Indication: Shortness of breath Procedure: AP portable chest Comparison: Comparison to multiple prior studies sequentially, with oldest reviewed study dated 05/21. Findings: Borderline heart size. There is diffuse bilateral airspace disease which is improved. No si gnificant effusion or pneumothorax. No acute osseous abnormality. There is atherosclerosis. Impression: 1: Improving diffuse bilateral airspace disease which may represent edema or pneumonia. Reviewed, dictated and finalized at location A. ER WAFER SUBSTRATE Impression: 1: Improving diffuse bilateral airspace disease which may represent edema or pn eumonia.
--- NOTE | ~2021-11-05 | XR_ITS ---
EXAMINATION: XR chest 1V portable DATE: 11/05/2021 06:28 INDICATION: Shortness of breath. TECHNIQUE: A single frontal view of the chest was obtained. COMPARISON: Chest single view 05/24/2021, CT abdomen and pelvis 01/18/2013 FINDINGS: There are airspace and interstitial opacities in all right lung zones and in left mid and l ower lung zones. There are small pleural effusions. No pneumothorax. Cardiomegaly is noted. Widening of right acromioclavicular joint may be from distal clavicle resection or trauma. IMPRESSION: 1. Diffuse lung disease, consistent with pulmonary edema versus pneumonia. 2. Small pleural effusions. 3. Cardiomegaly. Reviewed, dictated and finalized at location E. [employer]
--- NOTE | 2021-11-05 05:47 | ECG_ITS ---
Measurements Intervals [place] Rate: 106 P: 35 OK: 152 QRS: -33 QRSD: 108 T: 84 QT: 346 QTc: 461 Interpretive Statements SINUS TACHYCARDIA ATRIAL PREMATURE COMPLEX LEFT AXIS DEVIATION INCOMPLETE RIGHT BUNDLE BRANCH BLOCK LEFT VENTRICULAR HYPERTROPHY AND ST-T CHANGE MINIMAL Q WAVES- HIGH LATERAL LEADS ABNORMAL ECG Electronically Signed On 11-05-2021 6:51:33 NATIONAL RECRUITER by Miko Altamirano D.O.
[2021-11-05] MEDS: ALBUTEROL SULFATE NEB 2.5 MG/0.5 ML INH 5 MG INHALATION (06:02)
[2021-11-05] MEDS: IPRATROPIUM BR 0.02% INH SOLN 0.5 MG/2.5 ML VIAL INHALATION (06:02)
--- NOTE | 2021-11-05 06:02 | ED.SOB ---
HPI - SOB/Dyspnea General Chief Complaint: Shortness of Breath/Dyspnea <Shaggy Jung MD - Last Filed: 11/05/21 06:04> Stated Complaint: sob, chf <Shaggy Jung MD - Last Filed: 11/05/21 06:04> Time Seen by Provider: 11/05/21 05:48 <Shaggy Jung MD - Last Filed: 11/05/21 06:04> Source: patient, family and EMS <Shaggy Jung MD - Last Filed: 11/05/21 06:04> Mode of arrival: EMS <Shaggy Jung MD - Last Filed: 11/05/21 06:04> Limitations: clinical condition <Shaggy Jung MD - Last Filed: 11/05/21 06:04> History of Present Illness HPI Narrative: Patient is an 86-year-old female brought in by EMS in respiratory distress. Patient complaining of shortness of breath that started last night worse this morning. Patient has a history of CHF. Patient denies any chest pain, abdominal pain, nausea, vomiting, diaphoresis, fever or chills. <Shaggy Jung MD - Last Filed: 11/05/21 06:04> Related Data Home Medications: Home Medications Medication Instructions Recorded Confirmed gabapentin 300 mg capsule 300 mg PO TID 04/26/21 11/05/21 pantoprazole 40 mg tablet,delayed 40 mg PO QAM 04/26/21 11/05/21 release ruxolitinib 5 mg tablet 5 mg PO BID 08/24/21 11/05/21 pyridoxine (vitamin B6) 250 mg 200 mg PO DAILY tablet 09/20/21 11/05/21 tablet <Shaggy Jung MD - Last Filed: 11/05/21 06:04> Allergies/Adverse Reactions: Allergies Allergy/AdvReac Type Severity Reaction Status Date / Time hydrocodone Allergy Severe vomiting Verified 10/25/21 09:52 codeine Allergy Mild Hives Verified 10/25/21 09:52 Sulfa (Sulfonamide Allergy Mild Rash Verified 10/25/21 09:52 Antibiotics) meloxicam Allergy Unknown unkown Verified 10/25/21 09:52 naproxen Allergy Unknown unkown Verified 10/25/21 09:52 MUSCLE RELAXERS Allergy Mild rapid Uncoded 10/25/21 09:52 heart beat <Shaggy Jung MD - Last Filed: 11/05/21 06:04> Review of Systems Review of Systems: All systems reviewed & are unremarkable except as noted in HPI and below <Shaggy Jung MD - Last Filed: 11/05/21 06:04> Constitutional: Constitutional: Denies body ache(s), Denies chills, Denies excessive sweating, Denies fatigue, Denies fever(s), Denies headache(s), Denies lethargy, Denies malaise, Denies weakness and Denies weight loss <Shaggy Jung MD - Last Filed: 11/05/21 06:04> Eyes: Eyes: Denies blurry vision, Denies change in vision and Denies loss of vision <Shaggy Jung MD - Last Filed: 11/05/21 06:04> ENT: Denies dizziness, Denies ear discharge, Denies headache(s), Denies lip swelling, Denies epistaxis, Denies nasal congestion, Denies neck pain, Denies throat swelling and Denies tongue swelling <Shagyg Jung MD - Last Filed: 11/05/21 06:04> Cardiovascular: Cardiovascular: Denies chest pain, Denies chest pain at rest, Denies chest pain with activity, Denies diaphoresis, Denies rapid heart rate, Denies edema, Denies irregular heart rhythm, Denies lightheadedness and Denies palpitations <Shaggy Jung MD - Last Filed: 11/05/21 06:04> Respiratory: Respiratory: Denies chest congestion, Denies cough and Denies hemoptysis <Shaggy Jung MD - Last Filed: 11/05/21 06:04> Gastrointestinal: Gastrointestinal: Denies abdominal pain, Denies melena, Denies hematochezia, Denies diarrhea, Denies nausea, Denies vomiting and Denies hematemesis <Shaggy Jung MD - Last Filed: 11/05/21 06:04> Musculoskeletal: Musculoskeletal: Denies abnormal gait, Denies deformity, Denies joint swelling, Denies limited range of motion, Denies neck pain and Denies numbness <Shaggy Jung MD - Last Filed: 11/05/21 06:04> Neurologic: Denies Abnormal speech present, Denies abnormal gait, Denies confusion, Denies dizziness, Denies headache(s), Denies focal weakness, Denies loss of vision, Denies numbness, Denies Other visual disturbances, Denies Sensory deficit (Neuro) and Den
[2021-11-05] MEDS: FUROSEMIDE INJ 40 MG/4 ML VIAL IV PUSH ×2 (06:06→09:45)
[2021-11-05 06:14] LABS: Hemoglobin 8.7 g/dL (12.0-15.0); Mean Corpuscular Hemoglobin 29.9 pg (26-34); Mean Corpuscular Volume 99.7 fl (80-100); Mean Platelet Volume 10.8 fl (7.4-10.4); Platelet Count Result 638 k/mm3 (150-375); Red Blood Count 2.91 M/mm3 (4.2-5.4); Red Cell Distribution Width 23.6 % (11.5-14.5); White Blood Count 25.3 K/mm3 (4.5-10.0)
[2021-11-05 06:20] LABS: Alveolar/Arterial O2 Gradient 240.6 mmHg; Base Excess ABG -6.8 mEq/l (+/-2.0); Carboxyhemoglobin 0.4 % THb (0-2.0); Fractional Inspired Oxygen 50 %; HCO3 ABG 17.5 mEq/l (22.0-26.0); Methemoglobin ABG 0.2 %THb (0-1.5); Oxygen Content ABG 11.4 %vol (16.0-22.0); Oxygen Saturation ABG 96.1 % (95.0-100.0); Oxyhemoglobin 94.5 % THb (90.0-100.0); PCO2 ABG 30.2 mmHg (35.0-45.0); PO2 ABG 81.9 mmHg (80.0-100.0); PO2 FiO2 Ratio Arterial Blood 1.64 %; Reduced Hemoglobin 4.9 %THb (0-5.0); Total Hemoglobin 8.5 g/dL (12.0-18.0)
[2021-11-05 06:21] LABS: Device NON-INVASIVE VENT; Modified Allen's Test Pass; Site Drawn LEFT RADIAL
[2021-11-05 06:22] LABS: Non-Invasive Expiratory Pressure 6 CMH2O; Non-Invasive Inspiratory Pressure 12 CMH2O; Non-Invasive Vent Rate 16 /MIN
[2021-11-05 06:24] LABS: INR 1.3; Prothrombin Time 15.6 Seconds (11.1-14.7)
[2021-11-05 06:25] LABS: Partial Thromboplastin Time 31.4 SECONDS (22.3-36.8)
[2021-11-05 06:28] LABS: Alanine Aminotransferase 31 U/L (4-35); Albumin Level 4.7 g/dL (3.5-5.1); Alkaline Phosphatase 116 U/L (38-126); Anion Gap 12 mmol/L (8-16); Aspartate Amino Transferase 65 U/L (14-36); Bilirubin,Total 0.8 mg/dL (0.2-1.3); Blood Urea Nitrogen 34 mg/dL (7-17); Calcium 8.2 mg/dL (8.4-10.2); Carbon Dioxide 16 mmol/L (22-30); Chloride 110 mmol/L (98-107); Estimated Glomerular Filt Rate 36; Glucose 145 mg/dL (65-110); Potassium 4.2 mmol/L (3.4-5.0); Sodium 138 mmol/L (137-145)
--- NOTE | 2021-11-05 06:34 | PC.NURSE ---
Pt is a/o x4, able to speak in short sentences, she does not have any complaints of pain at this time and is tolerating Bipap well.
[2021-11-05 06:48] LABS: NT Pro B Type Natriuretic Pept 5630 pg/mL (5-100); Troponin I 0.024 ng/mL (0.000-0.034)
[2021-11-05 07:07] LABS: Anisocytosis 3+ (NORMAL); Band Neutrophils Percent 16 % (0-6); Eosinophils Absolute Manual 0.25 K/mm3 (0.02-0.5); Eosinophils Percent Manual 1 % (0-4); Lymphocytes Absolute Manual 5.56 K/mm3 (1.1-4.5); Metamyelocytes Percent 1 %; Monocytes Percent Manual 2 % (3-9); Myelocytes Percent 1 %; Neutrophils Absolute Manual 18.46 K/mm3 (1.7-7.2); Neutrophils Percent Manual 57 % (46-73); Nucleated Red Blood Cells 3 %; Platelet Estimate Increased (Adequate); Total Cells Counted 100
[2021-11-05 10:08] LABS: Troponin I 0.378 ng/mL (0.000-0.034)
[2021-11-05 10:58] LABS: SARS-CoV-2 RNA PCR Negative
--- NOTE | 2021-11-05 13:00 | PM.IMHP ---
H&P: HPI History of Present Illness Date/Time: 11/05/21 13:00 Chief Complaint: Shortness of breath. Narrative: This is an 86-year-old female with chronic kidney disease, anemia, myelodysplastic syndrome, diastolic congestive heart failure, hypertension, hyperlipidemia, and hypothyroidism who presented to the emergency department via EMS from home for evaluation of shortness of breath. She began feeling short of breath last night at around 22:00 while lying in bed. She did not sleep well due to shortness of breath and in fact she was up and about quite a bit during the night trying to get comfortable. She goes on to say that she has intermittent orthopnea though that is typically only when she has edema in her legs, which is not the case today. Chest x-ray done on arrival to the emergency department showed diffuse lung disease consistent with pulmonary edema versus pneumonia. Her troponins also came back elevated, and she is being admitted in this setting. She denies sick contacts and she gives no history to suggest overt infection. She specifically denies fever, sinus congestion, sore throat, cough, nausea, vomiting, diarrhea, and generalized malaise. She has not had any sick contacts to her knowledge. She also denies chest and pleuritic pain. she does not weigh herself at home but does not think she has gained any significant weight. Of note, the patient had a blood transfusion done a couple of days ago though she says that typically she does not require Lasix post transfusion. Review of Systems Review of Systems: Twelve systems were reviewed. No syncope or near syncope. No headache or neck ache. She denies sick contacts. Occasional palpitations. No feelings of racing heart. Patient admits to generalized fatigue majority of the time due to ongoing problems with anemia. Except as documented, all other systems were reviewed and are negative. [facility] Past Medical History Medical History (Updated 11/05/21 @ 13:47 [address] Snowden PA-C) Arthritis Chronic anemia She has required intermittent transfusions over the years and it is noted that she had an acute hemolytic anemic transfusion reaction in April 2019. Chronic kidney disease, stage 3 Chronic myeloproliferative disorder Followed by Dr. Luiz Lopez. On Jakafi. COVID-19 (05/2021) Diastolic congestive heart failure Grade 2 diastolic dysfunction noted on echocardiogram in May 2021. Ejection fraction at that time was estimated at 65 to 70%. Essential (primary) hypertension Hyperlipidemia Hypothyroidism Myelodysplastic syndrome Low-grade MDS with refractory anemia. Followed by Dr. Lopez. 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 Monitored by Dr. Lopez. Surgical History Surgical History (Updated 11/05/21 @ 13:23 [address] Snowden PA-C) History of bunionectomy of both great toes History of carpal tunnel release History of cataract surgery History of hammertoe correction History of repair of right rotator cuff Family History Family History Father Family history of lung cancer, Onset Age: 56 Patient's father is Mother Patient's mother is Social History Social History (Updated 11/05/21 @ 22:[address] Snowden PA-C) Social History: Surrogate decision maker: Makenzie Osorio or Harlan Chan (son). Code status: Full code. Smoking status: Never smoker Second hand tobacco smoke exposure: No Alcohol intake: never Substance use: never Substance use type: does not use Living arrangements: alone Additional living arrangements comments: since the age of 41. Lives independently. Son lives next door. Additional occupation/education comments: Retired. Meds Home Medications and Allergies Home Medications Medication Instructions Recorded Confirmed Type lisinopril 40 mg tablet 40 mg PO DAILY #90 tablet 12/08/20 11/05/21 Rx gabapentin 300 mg capsu
[2021-11-05 15:50] LABS: Anion Gap 10 mmol/L (8-16); Blood Urea Nitrogen 34 mg/dL (7-17); CRP 7.2 mg/dL (<1.0); Calcium 8.2 mg/dL (8.4-10.2); Carbon Dioxide 20 mmol/L (22-30); Chloride 106 mmol/L (98-107); Estimated Glomerular Filt Rate 36; Glucose 116 mg/dL (65-110); Magnesium 2.1 mg/dL (1.6-2.3); Potassium 4.3 mmol/L (3.4-5.0); Sodium 136 mmol/L (137-145)
[2021-11-05 15:56] LABS: Troponin I 0.626 ng/mL (0.000-0.034)
[2021-11-05 16:27] LABS: Procalcitonin 27.1 ng/mL
--- NOTE | 2021-11-05 22:12 | PC.NURSE ---
RN called daughter and informed her of pt's new room assignment.
--- NOTE | 2021-11-05 23:36 | ADMGEN ---
This patient, José Miguel Chan, was admitted to IMU Room 205-02 on 11/05/21 at 2307. Patient/family oriented to hospital policies and general routines including ID bracelet, bed and alarms, visiting hours, pain management, procedures, bathroom and other care routines, personal items, smoking policy, room service/diet, and visiting hours. Information on how to activate the Rapid Response Team has been discussed. Patient/Family are encouraged to report perceived risks to care and to ask questions if they do not understand what they are told or what they should do.
[2021-11-06] VITALS (16 sets, daily range): BP systolic 117–135; BP diastolic 52–63; PULSE 59–84; RESP 16–20; TEMP 35.9–37.2; O2SAT 91–99
[2021-11-06] MEDS: GABAPENTIN 300 MG CAPSULE PO ×4 (01:16→21:58)
[2021-11-06] MEDS: ASPIRIN 81 MG ENTERIC TABLET PO ×2 (01:23→10:57)
[2021-11-06] MEDS: hydrALAZINE HCL 25 MG TABLET PO ×2 (01:24→17:14)
[2021-11-06] MEDS: PANTOPRAZOLE 40 MG TABLET PO ×2 (01:24→09:49)
[2021-11-06 05:01] LABS: Hematocrit 26.1 % (37.0-47.0); Hemoglobin 8.2 g/dL (12.0-15.0); Mean Corpuscular HGB Conc 31.4 g/dl (32-36); Mean Corpuscular Hemoglobin 31.1 pg (26-34); Mean Corpuscular Volume 98.9 fl (80-100); Mean Platelet Volume 10.8 fl (7.4-10.4); Platelet Count Result 474 k/mm3 (150-375); Red Blood Count 2.64 M/mm3 (4.2-5.4); Red Cell Distribution Width 23.4 % (11.5-14.5)
[2021-11-06 05:12] LABS: Alanine Aminotransferase 23 U/L (4-35); Alkaline Phosphatase 107 U/L (38-126); Anion Gap 8 mmol/L (8-16); Aspartate Amino Transferase 48 U/L (14-36); Bilirubin,Total 1.2 mg/dL (0.2-1.3); Blood Urea Nitrogen 33 mg/dL (7-17); Carbon Dioxide 24 mmol/L (22-30); Chloride 106 mmol/L (98-107); Estimated CRCL calculation 26 ml/min; Estimated Glomerular Filt Rate 36; Glucose 103 mg/dL (65-110); Magnesium 2.2 mg/dL (1.6-2.3); Potassium 3.7 mmol/L (3.4-5.0); Sodium 138 mmol/L (137-145)
[2021-11-06 05:28] LABS: Band Neutrophils Percent 7 % (0-6); Metamyelocytes Percent 2 %; Monocytes Percent Manual 12 % (3-9); Neutrophils Percent Manual 75 % (46-73); Total Cells Counted 100
[2021-11-06 05:29] LABS: Anisocytosis 1+ (NORMAL); Nucleated Red Blood Cells 1 %; Platelet Estimate Adequate (Adequate)
[2021-11-06] MEDS: LEVOTHYROXINE SODIUM 50 MCG TABLET PO (05:38)
[2021-11-06] MEDS: lisinopriL 20 MG TABLET 40 MG PO (09:48)
[2021-11-06] MEDS: FUROSEMIDE INJ 40 MG/4 ML VIAL 20 MG IV PUSH ×2 (09:49→20:34)
--- NOTE | 2021-11-06 09:50 | PHAR ---
[id number] BOTTLE IDENTIFIED TO CONTAIN DRUG NAME: JAKAFI INGREDIENTS: RUXOLITINIB PHOSPHATE -- 5 MG RELATED DOCUMENTS: DRUGDEX EVALUATIONS - RUXOLITINIB COLOR: WHITE SHAPE: MECHOOPDA IMPRINT: 5 , INCY FORM: ORAL TABLET
[2021-11-06] MEDS: PYRIDOXINE HCL 50 MG TABLET 200 MG PO (10:56)
--- NOTE | 2021-11-06 11:22 | PM.IMPN ---
Progress Note: A&P Assessment and Plan (1) Acute respiratory failure with hypoxia: Code(s): J96.01 - Acute respiratory failure with hypoxia Status: Acute Assessment and Plan: Was started on BiPAP. Chest x-ray with diffuse lung disease consistent with pulmonary edema versus pneumonia. History of COVID May 2021. Echo 05/22 EF 65-70% grade 2 diastolic dysfunction no significant valvular abnormality mild pulmonary hypertension of 44 mmHg. Started on ceftriaxone and azithromycin for pneumonia along with diuresis with 40 mg IV b.i.d.. Echo has been done which is pending. Precipitating etiology not entirely clear but may be related to extra volume from recent blood transfusion. She has a history of transfusion reactions but TACO and TRALI are unlikely this far out. Pneumonia is also a consideration given leukocytosis though it looks like her white blood cell count is always elevated. Leukocytosis is with neutrophilia and bandemia noted Given her immunocompromised state, she will be started on antibiotics. SARS-CoV-2 by PCR was negative. CRP and procalcitonin level are pending at this time. Additionally she will be cautiously diuresed with close monitoring of volume status. Wean oxygen as tolerated. Procalcitonin came back at 27.1 which is quite elevated will get blood culture x2 sputum culture continue with antibiotics (2) Diffuse lung disease: Code(s): J98.4 - Other disorders of lung Status: Acute Assessment and Plan: Differential diagnosis includes pneumonia verses pulmonary edema as detailed above. (3) Non-ST elevated myocardial infarction: Code(s): I21.4 - Non-ST elevation (NSTEMI) myocardial infarction Status: Acute Assessment and Plan: Most likely related to hypoxia as she has no complaints of chest pain whatsoever. Continue to trend troponins to peak and monitor on telemetry overnight. Echocardiogram ordered as well to assess for wall motion abnormalities. Likely related to CHF/pneumonia (4) Myelodysplastic syndrome: Code(s): D46.9 - Myelodysplastic syndrome, unspecified Status: Acute Assessment and Plan: Followed by Dr. Lopez. Continue Jakafi. (5) Diastolic congestive heart failure: Code(s): I50.30 - Unspecified diastolic (congestive) heart failure Status: Acute Assessment and Plan: Continue cautious diuresis with close monitoring of volume status and renal function. Echocardiogram pending Elevated troponin, no acute ST-T changes (6) Chronic kidney disease, stage 3: Code(s): N18.30 - Chronic kidney disease, stage 3 unspecified Status: Acute Assessment and Plan: Creatinine is a bit elevated from baseline. Monitor closely while diuresing. (7) Chronic anemia: Code(s): D64.9 - Anemia, unspecified Status: Acute Assessment and Plan: Status post blood transfusion 2 days ago. Hemoglobin is about her baseline at 8.7. (8) Essential (primary) hypertension: Code(s): I10 - Essential (primary) hypertension Status: Acute Assessment and Plan: Blood pressures were reviewed and they have been stable. Continue antihypertensives and monitor daily. (9) Hypothyroidism: Code(s): E03.9 - Hypothyroidism, unspecified Status: Acute Assessment and Plan: Continue levothyroxine and TSH is normal Subjective Date/time seen: 11/06/21 11:22 Interval history: HPI:This is an 86-year-old female with chronic kidney disease, anemia, myelodysplastic syndrome, diastolic congestive heart failure, hypertension, hyperlipidemia, and hypothyroidism who presented to the emergency department via EMS from home for evaluation of shortness of breath. She began feeling short of breath last night at around 22:00 while lying in bed. She did not sleep well due to shortness of breath and in fact she was up and about quite a bit during the night trying to get comfortab
--- NOTE | 2021-11-06 22:14 | ECHO_ITS ---
Patient Info Name: José Miguel Chan Age: 86 years : 1935 Gender: Female Ht: 64 in Wt: 165 lbs BSA: 1.86 m2 HR: 100 bpm BP: 117 Technical Quality: Good Exam Date: 11/06/2021 8:25 AM Exam Location: [facility] Pulmonary Patient Status: Inpatient Admit Date: 11/05/2021 Staff Ordering Physician: Court Snowden PA-C Concrete Batch Plant Operator: Chaya Regan RDCS Attending Provider: Reyes Madison MD Referring Physician: pS DUBOSE; Exam Type: CA echo doppler color flow Study Info Complete two-dimensional, color flow and Doppler transthoracic echocardiogram is performed. Summary 1. Complete two-dimensional, color flow and Doppler transthoracic echocardiogram is performed. 2. [id number] LVH, normal LV size; LV systolic function is at lower limits of normal with EF approximately 50-55%. Segmental wall motion abnormality with hypokinesis of basal and mid inferior segments. Diastolic dysfunction is present. Moderate left atrial enlargement. Normal mitral valve structure, trace MR. Mild aortic valve sclerosis, no hemodynamically significant stenosis, mild aortic regurgitation. Iozq-ls-qnrxrhka tricuspid regurgitation, moderate pulmonary hypertension, RVSP 50 mmHg. Sinus rhythm. Left Ventricle Left ventricular chamber dimension is normal. Left ventricular systolic function is normal, estimated at 50-55%. There is mildly increased left ventricular wall thickness. The left ventricular diastolic function is abnormal. Right Ventricle Right ventricular chamber dimension is normal. Right ventricular systolic function is normal. Left Atria Left atrial chamber dimension is moderately enlarged. Right Atria Right atrial chamber dimension is mildly enlarged. Aortic Valve There is mild aortic valve sclerosis. There is no aortic valve stenosis. There is mild aortic valve regurgitation. Pulmonic Valve The pulmonic valve is not well visualized. There is trace pulmonic regurgitation. Mitral Valve The mitral valve has normal leaflets. There is trace mitral valve regurgitation. Tricuspid Valve The tricuspid valve leaflets are normal. There is mild to moderate tricuspid valve regurgitation. Moderate pulmonary hypertension, estimated pulmonary arterial systolic pressure is 50 mmHg. Inferior Vena Cava Dilated inferior vena cava with >50% collapse upon inspiration consistent with elevated right atrial pressure, 10 mmHg. Aorta The aortic root size at the sinus of Valsalva is normal. Left Ventricular Outflow Tract Name Value Normal LVOT 2D LVOT Diameter 2.1 cm LVOT Doppler LVOT Peak Gradient 6 mmHg LVOT Mean Gradient 4 mmHg LVOT VTI 26 cm LVOT VTI/AV VTI Ratio 0.8 LVOT Stroke Volume 86 ml LVOT CO 5.8 l/min LVOT CI 3.1 l/min/m2 Pulmonic Valve Name Value Normal
[2021-11-07] VITALS (14 sets, daily range): BP systolic 120–150; BP diastolic 51–71; PULSE 49–77; RESP 14–18; TEMP 36.2–36.9; O2SAT 95–98
[2021-11-07 05:07] LABS: Alanine Aminotransferase 22 U/L (4-35); Albumin Level 3.9 g/dL (3.5-5.1); Alkaline Phosphatase 94 U/L (38-126); Anion Gap 9 mmol/L (8-16); Aspartate Amino Transferase 49 U/L (14-36); Bilirubin,Total 0.8 mg/dL (0.2-1.3); Blood Urea Nitrogen 33 mg/dL (7-17); Calcium 8.3 mg/dL (8.4-10.2); Carbon Dioxide 24 mmol/L (22-30); Chloride 103 mmol/L (98-107); Estimated CRCL calculation 26 ml/min; Estimated Glomerular Filt Rate 36; Glucose 115 mg/dL (65-110); Magnesium 2.2 mg/dL (1.6-2.3); Potassium 4.2 mmol/L (3.4-5.0); Sodium 136 mmol/L (137-145)
[2021-11-07 05:20] LABS: NT Pro B Type Natriuretic Pept 10300 pg/mL (5-100)
[2021-11-07] MEDS: LEVOTHYROXINE SODIUM 50 MCG TABLET PO (05:48)
[2021-11-07] MEDS: GABAPENTIN 300 MG CAPSULE PO ×3 (05:48→22:10)
[2021-11-07 05:51] LABS: Hematocrit 26.6 % (37.0-47.0); Hemoglobin 7.9 g/dL (12.0-15.0); Mean Corpuscular HGB Conc 29.7 g/dl (32-36); Mean Corpuscular Hemoglobin 28.5 pg (26-34); Mean Platelet Volume 11.2 fl (7.4-10.4); Platelet Count Result 468 k/mm3 (150-375); Red Blood Count 2.77 M/mm3 (4.2-5.4); Red Cell Distribution Width 23.7 % (11.5-14.5); White Blood Count 19.4 K/mm3 (4.5-10.0)
[2021-11-07 06:15] LABS: Band Neutrophils Percent 6 % (0-6); Basophils Absolute Manual 0.19 K/mm3 (0.0-0.1); Basophils Percent Manual 1 % (0-1); Eosinophils Absolute Manual 0.58 K/mm3 (0.02-0.5); Eosinophils Percent Manual 3 % (0-4); Lymphocytes Absolute Manual 2.32 K/mm3 (1.1-4.5); Metamyelocytes Percent 4 %; Monocytes Absolute Manual 2.32 K/mm3 (0.1-0.90); Monocytes Percent Manual 12 % (3-9); Myelocytes Percent 4 %; Neutrophils Absolute Manual 12.41 K/mm3 (1.7-7.2); Neutrophils Percent Manual 58 % (46-73); Nucleated Red Blood Cells 6 %; Total Cells Counted 100
[2021-11-07 06:17] LABS: Anisocytosis 2+ (NORMAL); Hypochromasia 2+ (NORMAL); Large Platelets Present; Platelet Estimate Increased (Adequate); Polychromasia 1+ (NORMAL)
[2021-11-07 06:18] LABS: Ovalocytes 2+ (NORMAL)
--- NOTE | 2021-11-07 08:19 | PM.IMPN ---
Progress Note: A&P Assessment and Plan (1) Acute respiratory failure with hypoxia: Code(s): J96.01 - Acute respiratory failure with hypoxia Status: Acute Assessment and Plan: Was started on BiPAP. Chest x-ray with diffuse lung disease consistent with pulmonary edema versus pneumonia. History of COVID May 2021. Echo 05/22 EF 65-70% grade 2 diastolic dysfunction no significant valvular abnormality mild pulmonary hypertension of 44 mmHg. Started on ceftriaxone and azithromycin for pneumonia along with diuresis with 40 mg IV b.i.d.. Echo has been done which is pending. Precipitating etiology not entirely clear but may be related to extra volume from recent blood transfusion. She has a history of transfusion reactions but TACO and TRALI are unlikely this far out. Pneumonia is also a consideration given leukocytosis though it looks like her white blood cell count is always elevated. Leukocytosis is with neutrophilia and bandemia noted Given her immunocompromised state, she will be started on antibiotics. SARS-CoV-2 by PCR was negative. CRP and procalcitonin level are pending at this time. Additionally she will be cautiously diuresed with close monitoring of volume status. Wean oxygen as tolerated. Procalcitonin came back at 27.1 which is quite elevated will get blood culture x2 sputum culture continue with antibiotics Chest x-ray reviewed and denotes improving opacities WBC count still 19,000 but has chronic leukocytosis as well She is currently off oxygen 11/07/2021 Continue current antibiotics and diuretics (2) Diffuse lung disease: Code(s): J98.4 - Other disorders of lung Status: Acute Assessment and Plan: Differential diagnosis includes pneumonia verses pulmonary edema as detailed above. (3) Non-ST elevated myocardial infarction: Code(s): I21.4 - Non-ST elevation (NSTEMI) myocardial infarction Status: Acute Assessment and Plan: Most likely related to hypoxia as she has no complaints of chest pain whatsoever. Continue to trend troponins to peak and monitor on telemetry overnight. Echocardiogram ordered as well to assess for wall motion abnormalities. Likely related to CHF/pneumonia (4) Myelodysplastic syndrome: Code(s): D46.9 - Myelodysplastic syndrome, unspecified Status: Acute Assessment and Plan: Followed by Dr. Lopez. Continue Jakafi. (5) Diastolic congestive heart failure: Code(s): I50.30 - Unspecified diastolic (congestive) heart failure Status: Acute Assessment and Plan: Continue cautious diuresis with close monitoring of volume status and renal function. Elevated troponin, no acute ST-T changes Echo with mild to moderate LVH, EF 50-55% WMA with hypokinesis of basal and mid inferior segments diastolic dysfunction moderate LAE trace MR guwp-bu-wqvlavup TR moderate pulmonary hypertension 50 mm Hg Comparatively on 05/21/2021 EF was 65-70% grade 2 diastolic dysfunction LA he mild MR mild TR mild pulmonary hypertension 44 mm Hg Follow-up with cardiology as an outpatient basis (6) Chronic kidney disease, stage 3: Code(s): N18.30 - Chronic kidney disease, stage 3 unspecified Status: Acute Assessment and Plan: Creatinine is a bit elevated from baseline. Monitor closely while diuresing. 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 Hemoglobin is about her baseline at 8.7. (8) Essential (primary) hypertension: Code(s): I10 - Essential (primary) hypertension Status: Acute Assessment and Plan: Blood pressures were reviewed and they have been stable. Continue antihypertensives and monitor daily. (9) Hypothyroidism: Code(s): E03.9 - Hypothyroidism, unspecified Status: Acute Assessment and Plan: Continue levothyroxine and TSH is normal Subjec
[2021-11-07] MEDS: ASPIRIN 81 MG ENTERIC TABLET PO (08:43)
[2021-11-07] MEDS: PANTOPRAZOLE 40 MG TABLET PO (08:44)
[2021-11-07] MEDS: PYRIDOXINE HCL 50 MG TABLET 200 MG PO (08:44)
[2021-11-07] MEDS: lisinopriL 20 MG TABLET PO (08:46)
[2021-11-07] MEDS: hydrALAZINE HCL 25 MG TABLET PO ×2 (08:46→17:59)
[2021-11-07] MEDS: FUROSEMIDE INJ 40 MG/4 ML VIAL 20 MG IV PUSH ×2 (08:46→20:45)
[2021-11-07] MEDS: polyethylene glycoL 3350 17 GM POWD.PACK PO (17:55)
[2021-11-08] VITALS: PULSE 59
[2021-11-08 01:31] VITALS: PULSE 59
--- NOTE | 2021-11-08 04:25 | ADMGEN ---
This patient, José Miguel Chan, was admitted to [facility] Surg Room 325-01 on 11/28/21 at 0418. Report given to HÉCTOR Mustafa. Patient/family oriented to hospital policies and general routines including ID bracelet, bed and alarms, visiting hours, pain management, procedures, bathroom and other care routines, personal items, smoking policy, room service/diet, and visiting hours. Information on how to activate the Rapid Response Team has been discussed. Patient/Family are encouraged to report perceived risks to care and to ask questions if they do not understand what they are told or what they should do. This patient, José Miguel Chan, was transferred to [ ] on 11/08/21 at 0425. Personal belongings sent with patient. Report given to [ ]. Appropriate documentation sent with patient.
[2021-11-08 04:34] VITALS: BP 122/45; PULSE 52; RESP 17; TEMP 36.6; O2SAT 95
--- NOTE | 2021-11-08 04:37 | PC.NURSE ---
patient transferred from IMU to room 325-1 at 0415. All belongings were transferred with the patient and patient was oriented to the room.
[2021-11-08] MEDS: GABAPENTIN 300 MG CAPSULE PO ×2 (05:33→14:17)
[2021-11-08] MEDS: LEVOTHYROXINE SODIUM 50 MCG TABLET PO (05:33)
[2021-11-08 07:22] LABS: Hematocrit 29.3 % (37.0-47.0); Hemoglobin 8.7 g/dL (12.0-15.0); Mean Corpuscular HGB Conc 29.7 g/dl (32-36); Mean Corpuscular Hemoglobin 29.2 pg (26-34); Mean Corpuscular Volume 98.3 fl (80-100); Mean Platelet Volume 11.3 fl (7.4-10.4); Platelet Count Result 538 k/mm3 (150-375); Red Blood Count 2.98 M/mm3 (4.2-5.4); Red Cell Distribution Width 23.8 % (11.5-14.5); White Blood Count 19.3 K/mm3 (4.5-10.0)
[2021-11-08 07:38] LABS: Alanine Aminotransferase 23 U/L (4-35); Albumin Level 4.2 g/dL (3.5-5.1); Alkaline Phosphatase 98 U/L (38-126); Anion Gap 8 mmol/L (8-16); Aspartate Amino Transferase 43 U/L (14-36); Bilirubin,Total 0.7 mg/dL (0.2-1.3); Blood Urea Nitrogen 44 mg/dL (7-17); Calcium 8.6 mg/dL (8.4-10.2); Carbon Dioxide 21 mmol/L (22-30); Chloride 102 mmol/L (98-107); Estimated CRCL calculation 26 ml/min; Estimated Glomerular Filt Rate 36; Glucose 112 mg/dL (65-110); Magnesium 2.3 mg/dL (1.6-2.3); Potassium 4.3 mmol/L (3.4-5.0); Sodium 131 mmol/L (137-145)
[2021-11-08 08:00] VITALS: BP 127/47; PULSE 56; RESP 18; TEMP 36.7; O2SAT 93
[2021-11-08 08:35] LABS: Band Neutrophils Percent 8 % (0-6); Basophils Absolute Manual 0.57 K/mm3 (0.0-0.1); Basophils Percent Manual 3 % (0-1); Eosinophils Absolute Manual 0.19 K/mm3 (0.02-0.5); Eosinophils Percent Manual 1 % (0-4); Lymphocytes Absolute Manual 3.86 K/mm3 (1.1-4.5); Monocytes Absolute Manual 0.77 K/mm3 (0.1-0.90); Monocytes Percent Manual 4 % (3-9); Neutrophils Absolute Manual 13.89 K/mm3 (1.7-7.2); Neutrophils Percent Manual 64 % (46-73); Nucleated Red Blood Cells 2 %; Platelet Estimate Adequate (Adequate); Total Cells Counted 100
[2021-11-08 08:36] VITALS: PULSE 50
[2021-11-08 08:36] LABS: Anisocytosis 2+ (NORMAL); Ovalocytes 2+ (NORMAL)
[2021-11-08] MEDS: PYRIDOXINE HCL 50 MG TABLET 200 MG PO (09:10)
[2021-11-08] MEDS: PANTOPRAZOLE 40 MG TABLET PO (09:11)
[2021-11-08] MEDS: ASPIRIN 81 MG ENTERIC TABLET PO (09:11)
[2021-11-08] MEDS: lisinopriL 20 MG TABLET PO (09:11)
[2021-11-08] MEDS: hydrALAZINE HCL 25 MG TABLET PO (09:11)
[2021-11-08] MEDS: FUROSEMIDE INJ 40 MG/4 ML VIAL 20 MG IV PUSH (09:11)
[2021-11-08] MEDS: polyethylene glycoL 3350 17 GM POWD.PACK PO (11:52)
[2021-11-08 12:00] VITALS: BP 114/54; PULSE 60; PULSE 62; RESP 18; TEMP 37.4; O2SAT 95
--- NOTE | 2021-11-08 13:17 | PM.DS ---
DS: Admitting Diagnosis Discharge Date 11/08/2021 Admitting Diagnosis Shortness of breath DS: Discharge Diagnosis Discharge Diagnosis (1) Acute respiratory failure with hypoxia: Code(s): J96.01 - Acute respiratory failure with hypoxia Status: Acute Assessment and Plan: Was started on BiPAP. Chest x-ray with diffuse lung disease consistent with pulmonary edema versus pneumonia. History of COVID May 2021. Echo 05/22 EF 65-70% grade 2 diastolic dysfunction no significant valvular abnormality mild pulmonary hypertension of 44 mmHg. Started on ceftriaxone and azithromycin for pneumonia along with diuresis with 40 mg IV b.i.d.. Echo has been done which is pending. Precipitating etiology not entirely clear but may be related to extra volume from recent blood transfusion. She has a history of transfusion reactions but TACO and TRALI are unlikely this far out. Pneumonia is also a consideration given leukocytosis though it looks like her white blood cell count is always elevated. Leukocytosis is with neutrophilia and bandemia noted Given her immunocompromised state, she will be started on antibiotics. SARS-CoV-2 by PCR was negative. Additionally she will be cautiously diuresed with close monitoring of volume status. Wean oxygen as tolerated. Procalcitonin came back at 27.1 which is quite elevated will get blood culture x2 sputum culture continue with antibiotics. Blood culture remain negative Chest x-ray reviewed and denotes improving opacities WBC count still 19,000 but has chronic leukocytosis as well. Leukocytosis continued to improve She is currently off oxygen 11/07/2021 Continue current antibiotics and diuretics Diuretics to continue 20 mg daily at home. She received ceftriaxone and azithromycin. She received 1.5 g azithromycin during the hospital stay. Will continue cefdinir at discharge 300 mg twice daily for 5 more days Chest x-ray continues to improve (2) Diffuse lung disease: Code(s): J98.4 - Other disorders of lung Status: Acute Assessment and Plan: Differential diagnosis includes pneumonia verses pulmonary edema as detailed above. (3) Non-ST elevated myocardial infarction: Code(s): I21.4 - Non-ST elevation (NSTEMI) myocardial infarction Status: Acute Assessment and Plan: Most likely related to hypoxia as she has no complaints of chest pain whatsoever. Continue to trend troponins to peak and monitor on telemetry overnight. Echocardiogram ordered as well to assess for wall motion abnormalities. Likely related to CHF/pneumonia (4) Myelodysplastic syndrome: Code(s): D46.9 - Myelodysplastic syndrome, unspecified Status: Acute Assessment and Plan: Followed by Dr. Lopez. Continue Jakafi. (5) Diastolic congestive heart failure: Code(s): I50.30 - Unspecified diastolic (congestive) heart failure Status: Acute Assessment and Plan: Continue cautious diuresis with close monitoring of volume status and renal function. Elevated troponin, no acute ST-T changes Echo with mild to moderate LVH, EF 50-55% WMA with hypokinesis of basal and mid inferior segments diastolic dysfunction moderate LAE trace MR [id number] TR moderate pulmonary hypertension 50 mm Hg Comparatively on 05/21/2021 EF was 65-70% grade 2 diastolic dysfunction LA he mild MR mild TR mild pulmonary hypertension 44 mm Hg Follow-up with cardiology as an outpatient basis (6) Chronic kidney disease, stage 3: Code(s): N18.30 - Chronic kidney disease, stage 3 unspecified Status: Acute Assessment and Plan: Creatinine is a bit elevated from baseline. Monitor closely while diuresing. (7) Chronic anemia: Code(s): D64.9 - Anemia, unspecified Status: Acute Assessment and Plan: Status post blood transfusion 2 days [facility]. Hemoglobin is about her baseline at 8.7. (8) Essential (primary) hypertension: Code(s): I10 - Ess
[2021-11-08 13:23] VITALS: BMI 27.4
[2021-11-08 13:33] VITALS: BMI 27.4
== END 2021-11-08 15:01 | disposition home health service (06) | DRG 189 ==
LOC: ANHED 07:30 → ANHIMU 11:11 → ANH3MEDSUR 11-08 04:21
PROVIDERS: Emergency Medicine; Internal Medicine; Physician Assistant; Admitting Provider Family Medicine; Emergency Provider Emergency Medicine; PCP Internal Medicine; Visit Provider Family Medicine
DX: J96.01 Acute respiratory failure with hypoxia (principal); I21.4 Non-ST elevation (NSTEMI) myocardial infarction; I13.0 Hypertensive heart and chronic kidney disease with heart failure and stage 1 through stage 4 chronic kidney disease, or unspecified chronic kidney disease; I50.32 Chronic diastolic (congestive) heart failure; D46.4 Refractory anemia, unspecified; N18.30 Chronic kidney disease, stage 3 unspecified; J98.4 Other disorders of lung; E03.9 Hypothyroidism, unspecified; E78.5 Hyperlipidemia, unspecified; Z20.822 Contact with and (suspected) exposure to COVID-19; Z28.21 Immunization not carried out because of patient refusal; Z86.16 Personal history of COVID-19
CPT/HCPCS: 36415; 36430; 36600; 71045; 80048; 80053; 82375; 82805; 83050; 83735; 83880; 84145; 84443; 84484; 85014; 85018; 85025; 85610; 85730; 86140; 87040; 93005; 93306; 94002; 94640; 96374; 96376; 97161; 97165; 99285; A9270; C9803; G0378; J0456; J0696; J1940; J2930; P9016; U0003; U0005

== ENCOUNTER 2021-11-15 10:30 | Outpatient (NON) | payer MEDICARE, MEDICAID, SELFPAY ==
[2021-11-15 11:12] LABS: Hematocrit 26.6 % (37.0-47.0); Hemoglobin 7.9 g/dL (12.0-15.0); Mean Corpuscular HGB Conc 29.7 g/dl (32-36); Mean Corpuscular Volume 97.8 fl (80-100); Mean Platelet Volume 11.2 fl (7.4-10.4); Platelet Count Result 562 k/mm3 (150-375); Red Blood Count 2.72 M/mm3 (4.2-5.4); Red Cell Distribution Width 23.4 % (11.5-14.5); White Blood Count 15.5 K/mm3 (4.5-10.0)
[2021-11-15 13:08] LABS: Band Neutrophils Percent 2 % (0-6); Monocytes Absolute Manual 0.93 K/mm3 (0.1-0.90); Monocytes Percent Manual 6 % (3-9); Neutrophils Absolute Manual 8.37 K/mm3 (1.7-7.2); Neutrophils Percent Manual 52 % (46-73); Total Cells Counted 100
[2021-11-15 13:10] LABS: Hypochromasia 1+ (NORMAL)
== END 2021-11-15 10:31 | disposition home or self-care (01) ==
PROVIDERS: PCP Internal Medicine; Visit Provider Internal Medicine Medical Oncology
DX: D64.9 Anemia, unspecified (principal)
CPT/HCPCS: 85025

== ENCOUNTER 2021-11-22 09:38 | Outpatient (NON) | payer MEDICARE, MEDICAID, SELFPAY ==
[2021-11-22 10:00] LABS: Hematocrit 25.4 % (37.0-47.0); Hemoglobin 7.4 g/dL (12.0-15.0); Mean Corpuscular HGB Conc 29.1 g/dl (32-36); Mean Corpuscular Hemoglobin 29.1 pg (26-34); Mean Platelet Volume 10.7 fl (7.4-10.4); Platelet Count Result 552 k/mm3 (150-375); Red Blood Count 2.54 M/mm3 (4.2-5.4); Red Cell Distribution Width 23.3 % (11.5-14.5); White Blood Count 16.8 K/mm3 (4.5-10.0)
[2021-11-22 10:13] LABS: Alanine Aminotransferase 20 U/L (4-35); Albumin Level 4.5 g/dL (3.5-5.1); Alkaline Phosphatase 82 U/L (38-126); Anion Gap 10 mmol/L (8-16); Aspartate Amino Transferase 54 U/L (14-36); Bilirubin,Total 0.6 mg/dL (0.2-1.3); Blood Urea Nitrogen 43 mg/dL (7-17); Calcium 9.1 mg/dL (8.4-10.2); Carbon Dioxide 22 mmol/L (22-30); Chloride 109 mmol/L (98-107); Estimated Glomerular Filt Rate 31; Glucose 86 mg/dL (65-110); Potassium 5.3 mmol/L (3.4-5.0); Sodium 141 mmol/L (137-145)
[2021-11-22 10:54] LABS: Band Neutrophils Percent 5 % (0-6); Basophils Percent Manual 3 % (0-1); Eosinophils Percent Manual 3 % (0-4); Lymphocytes Absolute Manual 1.68 K/mm3 (1.1-4.5); Metamyelocytes Percent 4 %; Monocytes Absolute Manual 0.67 K/mm3 (0.1-0.90); Monocytes Percent Manual 4 % (3-9); Myelocytes Percent 1 %; Neutrophils Percent Manual 70 % (46-73); Nucleated Red Blood Cells 2 %; Platelet Estimate Adequate (Adequate); Total Cells Counted 100
[2021-11-22 10:55] LABS: Anisocytosis 1+ (NORMAL)
== END 2021-11-22 09:39 | disposition home or self-care (01) ==
PROVIDERS: PCP Internal Medicine; Visit Provider Internal Medicine
DX: J96.01 Acute respiratory failure with hypoxia (principal); I21.4 Non-ST elevation (NSTEMI) myocardial infarction; D46.9 Myelodysplastic syndrome, unspecified; I45.10 Unspecified right bundle-branch block
CPT/HCPCS: 80053; 85025

== ENCOUNTER 2021-11-29 10:04 | Outpatient (NON) | payer MEDICARE, MEDICAID, SELFPAY ==
[2021-11-29 10:23] LABS: Hematocrit 23.3 % (37.0-47.0); Mean Corpuscular HGB Conc 29.6 g/dl (32-36); Mean Corpuscular Hemoglobin 28.8 pg (26-34); Mean Corpuscular Volume 97.1 fl (80-100); Mean Platelet Volume 10.7 fl (7.4-10.4); Platelet Count Result 672 k/mm3 (150-375); Red Cell Distribution Width 23.5 % (11.5-14.5); White Blood Count 18.8 K/mm3 (4.5-10.0)
[2021-11-29 10:35] LABS: Anion Gap 10 mmol/L (8-16); Blood Urea Nitrogen 46 mg/dL (7-17); Calcium 8.3 mg/dL (8.4-10.2); Carbon Dioxide 21 mmol/L (22-30); Chloride 106 mmol/L (98-107); Estimated Glomerular Filt Rate 27; Glucose 86 mg/dL (65-110); Potassium 5.4 mmol/L (3.4-5.0); Sodium 137 mmol/L (137-145)
[2021-11-29 10:54] LABS: Hemoglobin 6.9 g/dL (12.0-15.0)
[2021-11-29 10:59] LABS: Band Neutrophils Percent 3 % (0-6); Lymphocytes Absolute Manual 3.94 K/mm3 (1.1-4.5); Monocytes Absolute Manual 0.75 K/mm3 (0.1-0.90); Monocytes Percent Manual 4 % (3-9); Neutrophils Percent Manual 72 % (46-73); Total Cells Counted 100
[2021-11-29 11:00] LABS: Anisocytosis 2+ (NORMAL); Platelet Estimate Increased (Adequate)
[2021-11-29 11:01] LABS: Helmet Cells 1+ (NORMAL); Hypochromasia 1+ (NORMAL); Ovalocytes 2+ (NORMAL)
== END 2021-11-29 10:05 | disposition home or self-care (01) ==
PROVIDERS: PCP Internal Medicine; Visit Provider Internal Medicine Medical Oncology
DX: D46.9 Myelodysplastic syndrome, unspecified (principal)
CPT/HCPCS: 80048; 85025

== ENCOUNTER 2021-12-03 08:48 | Observation (INO) | payer MEDICARE, MEDICAID, SELFPAY ==
[2021-12-03] VITALS (13 sets, daily range): BP systolic 103–181; BP diastolic 45–92; PULSE 59–97; RESP 18–28; TEMP 36.9–38.3; O2SAT 91–99; BMI 27.6; BMI 28.3
--- NOTE | ~2021-12-03 | US_ITS ---
EXAMINATION: US venous doppler [facility] DATE: 12/04/2021 11:51 INDICATION: Shortness of breath. TECHNIQUE: Grayscale ultrasound images without and with compression and Doppler ultrasound images of the bilateral lower extremity veins were obtained. COMPARISON: None. FINDINGS: The visualized portions of right common femoral vein, profunda (deep) femoral vein, femoral vein, pop liteal vein, peroneal veins, posterior tibial veins, and greater saphenous vein outflow are patent. The visualized portions of left common femoral vein, profunda femoral vein, femoral vein, popliteal v ein, peroneal veins, posterior tibial veins, and greater saphenous vein outflow are patent. IMPRESSION: 1. No deep venous thrombosis. Reviewed, dictated and finalized at location A. [employer] SUPERVISOR
--- NOTE | ~2021-12-03 | XR_ITS ---
EXAMINATION: XR chest 2V EXAM DATE: 12/03/2021 09:33 INDICATION: Shortness of breath, weakness. TECHNIQUE: Frontal and lateral projections of the chest obtained and reviewed. Comparison is made to prior examination from 11/07/2021. FINDINGS: Enlarged dorian bilaterally, could be pulmonary arterial hypertension, but lymphadenopathy no t excludable. There is mild bibasilar airspace disease, improving edema or pneumonia. Cardiomegaly. N o sizable pleural effusion. No pneumothorax. There is aortic arteriosclerosis. IMPRESSION: 1. Improving edema or pneumonia. 2. Enlarged dorian which could be pulmonary arterial hypertension or hilar lymphadenopathy. 3. Cardiomegaly. Reviewed, dictated and finalized at location D. N [employer] SUPERVISOR IMPRESSION: 1. Improving edema or pneumonia. 2. Enlarged dorian which could be pulmonary arterial hypertension or hilar lymph adenopathy. 3. Cardiomegaly.
--- NOTE | 2021-12-03 08:54 | ECG_ITS ---
Measurements Intervals [place] Rate: 100 P: 50 KS: 196 QRS: -23 QRSD: 110 T: 76 QT: 338 QTc: 436 Interpretive Statements SINUS TACHYCARDIA S1-S2-S3 PATTERN, CONSISTENT WITH PULMONARY DISEASE, RVH, OR NORMAL VARIANT POSSIBLE RIGHT VENTRICULAR CONDUCTION DELAY [RSR (QR) IN V1/V2] LEFT VENTRICULAR HYPERTROPHY AND ST-T CHANGE [VOLTAGE CRITERIA PLUS ST/T ABNORMALITY] POSSIBLE LATERAL MYOCARDIAL INFARCTION , OF INDETERMINATE AGE [30 ms Q WAVE IN I/aVL/V5/V6] LEFT ANTERIOR FASCICULAR BLOCK INCOMPLETE RIGHT BUNDLE-BRANCH BLOCK ABNORMAL ECG Electronically Signed On 12-03-2021 10:36:04 CARD FIXER by Juni Sánchez M.D.
--- NOTE | 2021-12-03 09:40 | ED.SOB ---
HPI - SOB/Dyspnea General Chief Complaint: Shortness of Breath/Dyspnea <Debbie Driver PA-C - Last Filed: 12/03/21 18:17> Stated Complaint: SOB <MAYUR Zuleta Last Filed: 12/03/21 18:17> Time Seen by Provider: 12/03/21 09:14 <MAYUR Zuleta Last Filed: 12/03/21 18:17> Source: patient and family <MAYUR Zuleta Last Filed: 12/03/21 18:17> Mode of arrival: EMS <MAYUR Zuleta Last Filed: 12/03/21 18:17> Limitations: no limitations <MAYUR Zuleta Last Filed: 12/03/21 18:17> History of Present Illness HPI Narrative: This is an 86-year-old female that presents to the emergency department for shortness of breath since this morning. Reports history of myelodysplastic syndrome. Reports she received a transfusion 2 days ago. When she woke up this morning she felt some chills. She started to feel short of breath. She also had a couple episodes of vomiting. Denies fever, chest pain, lower extremity edema, abdominal pain, or diarrhea. <Debbie Driver PA-C - Last Filed: 12/03/21 18:17> Related Data Home Medications: Home Medications Medication Instructions Recorded Confirmed gabapentin 300 mg capsule 300 mg PO TID 04/26/21 12/03/21 pantoprazole 40 mg tablet,delayed 40 mg PO QAM 04/26/21 12/03/21 release pyridoxine (vitamin B6) 250 mg 200 mg PO DAILY tablet 09/20/21 12/03/21 tablet hydralazine 25 mg PO DAILY 11/06/21 12/03/21 lisinopril 20 mg PO DAILY 11/06/21 12/03/21 ruxolitinib [Jakafi] 5 mg PO BID 12/03/21 12/03/21 <MAYUR Zuleta Last Filed: 12/03/21 18:17> Allergies/Adverse Reactions: Allergies Allergy/AdvReac Type Severity Reaction Status Date / Time hydrocodone Allergy Severe vomiting Verified 12/03/21 14:35 codeine Allergy Mild Hives Verified 12/03/21 14:35 Sulfa (Sulfonamide Allergy Mild Rash Verified 12/03/21 14:35 Antibiotics) meloxicam Allergy Unknown Difficulty Verified 12/03/21 14:35 Breathing naproxen Allergy Unknown Other Verified 12/03/21 14:35 MUSCLE RELAXERS Allergy Mild rapid Uncoded 12/03/21 14:35 heart beat BIG E BLOOD ANTIBODY Allergy Unknown Anaphylactic Uncoded 12/03/21 14:35 Shock <Debbie Driver PA-C - Last Filed: 12/03/21 18:17> Review of Systems Review of Systems: CONSTITUTIONAL: Denies fever CARDIOVASCULAR: Denies chest pain, or edema. RESPIRATORY: Reports cough and dyspnea. GASTROINTESTINAL: Reports nausea and vomiting. Denies abdominal pain, or diarrhea. <Debbie Driver PA-C - Last Filed: 12/03/21 18:17> All systems reviewed & are unremarkable except as noted in HPI and below <Debbie Driver PA-C - Last Filed: 12/03/21 18:17> [facility] Past Medical History Medical History: Medical History (Updated 12/03/21 @ 13:32 [address] Snowden PA-C) Arthritis Chronic anemia She has required intermittent transfusions over the years and it is noted that she had an acute hemolytic anemic transfusion reaction in April 2019. Chronic kidney disease, stage 3 Chronic myeloproliferative disorder Followed by Dr. Luiz Lopez. On Jakafi. COVID-19 (05/2021) Diastolic congestive heart failure Echocardiogram in November 2021 showed [id number]-[id number]-ofwncviu LVH, normal LV size, LV systolic function at lower limits of normal with an EF between 50 to 55%, segmental wall motion abnormalities with hypokinesis of the basal and mid inferior segments, diastolic dysfunction, and moderate pulmonary hypertension. Essential (primary) hypertension Hyperlipidemia Hypothyroidism Myelodysplastic syndrome Low-grade MDS with refractory anemia. Followed by Dr. Lopez. 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 Monitored by Dr. Lopez. <Debbie Driver PA-C - Last Filed: 12/03/21 18:17> Surgical History Surgical History: Surgical History History of bunionectomy of both great toes History of carpal tunnel release Hist
[2021-12-03 09:45] LABS: Alveolar/Arterial O2 Gradient 143.7 mmHg; Base Excess ABG -8.3 mEq/l (+/-2.0); Carboxyhemoglobin 0.3 % THb (0-2.0); Fractional Inspired Oxygen 36 %; HCO3 ABG 16.2 mEq/l (22.0-26.0); Methemoglobin ABG 0.3 %THb (0-1.5); Oxygen Saturation ABG 95.3 % (95.0-100.0); Oxyhemoglobin 93.3 % THb (90.0-100.0); PCO2 ABG 29.7 mmHg (35.0-45.0); PO2 ABG 78.5 mmHg (80.0-100.0); PO2 FiO2 Ratio Arterial Blood 2.18 %; Reduced Hemoglobin 6.1 %THb (0-5.0); Total Hemoglobin 9.8 g/dL (12.0-18.0); pH ABG 7.354 (7.350-7.450)
[2021-12-03 09:46] LABS: Device NASAL CANNULA; Modified Allen's Test Pass; Site Drawn RIGHT RADIAL
[2021-12-03 10:03] LABS: Alanine Aminotransferase 26 U/L (4-35); Albumin Level 5.1 g/dL (3.5-5.1); Alkaline Phosphatase 104 U/L (38-126); Anion Gap 16 mmol/L (8-16); Aspartate Amino Transferase 102 U/L (14-36); Bilirubin,Total 0.7 mg/dL (0.2-1.3); Blood Urea Nitrogen 40 mg/dL (7-17); Carbon Dioxide 19 mmol/L (22-30); Chloride 108 mmol/L (98-107); Estimated CRCL calculation 24 ml/min; Estimated Glomerular Filt Rate 39; Glucose 113 mg/dL (65-110); Lipase 144 U/L (23-300); Potassium 4.7 mmol/L (3.4-5.0); Sodium 143 mmol/L (137-145)
[2021-12-03] MEDS: ONDANSETRON INJ 4 MG/2 ML VIAL IV PUSH (10:06)
[2021-12-03 10:13] LABS: NT Pro B Type Natriuretic Pept 7850 pg/mL (5-100); Troponin I 0.014 ng/mL (0.000-0.034)
[2021-12-03 10:17] LABS: INR 1.2; Prothrombin Time 14.3 Seconds (11.1-14.7)
[2021-12-03 10:18] LABS: Hematocrit 29.8 % (37.0-47.0); Mean Corpuscular HGB Conc 30.2 g/dl (32-36); Mean Corpuscular Hemoglobin 29.7 pg (26-34); Mean Corpuscular Volume 98.3 fl (80-100); Mean Platelet Volume 10.2 fl (7.4-10.4); Platelet Count Result 764 k/mm3 (150-375); Red Blood Count 3.03 M/mm3 (4.2-5.4); White Blood Count 23.7 K/mm3 (4.5-10.0)
[2021-12-03 10:19] LABS: Partial Thromboplastin Time 29.2 SECONDS (22.3-36.8)
[2021-12-03 10:41] LABS: Band Neutrophils Percent 3 % (0-6); Lymphocytes Absolute Manual 4.74 K/mm3 (1.1-4.5); Monocytes Absolute Manual 0.71 K/mm3 (0.1-0.90); Monocytes Percent Manual 3 % (3-9); Neutrophils Absolute Manual 18.24 K/mm3 (1.7-7.2); Neutrophils Percent Manual 74 % (46-73); Nucleated Red Blood Cells 3 %; Total Cells Counted 100
[2021-12-03 10:42] LABS: Platelet Estimate Increased (Adequate)
[2021-12-03 10:43] LABS: Anisocytosis 2+ (NORMAL); Ovalocytes 2+ (NORMAL); Stomatocytes 1+ (NORMAL); Tear Drop Cells 1+ (NORMAL)
[2021-12-03] MEDS: FUROSEMIDE INJ 40 MG/4 ML VIAL IV PUSH (11:11)
[2021-12-03 12:23] LABS: Influenza A QL RT-PCR Negative (Negative); Influenza B QL RT-PCR Negative (Negative); SARS-CoV-2 RNA PCR Negative
--- NOTE | 2021-12-03 13:05 | PC.NURSE ---
ALICIA Lewis notified of patient's temperature. Blankets removed from patient and per ALICIA Lewis via verbal order read-back, give patient 1G Tylenol IV.
--- NOTE | 2021-12-03 13:30 | PM.IMHP ---
H&P: HPI History of Present Illness Date/Time: 12/03/21 13:30 <Court Snowden PA-C - Last Filed: 12/03/21 22:22> Chief Complaint: Shortness of breath. <Court Snowden PA-C - Last Filed: 12/03/21 22:22> Narrative: This is a very pleasant 86-year-old female with chronic myeloproliferative disorder, myelodysplastic syndrome, chronic kidney disease, diastolic congestive heart failure, hypertension, hyperlipidemia, and hypothyroidism who presented to the emergency department via EMS from home for evaluation of shortness of breath. She requires frequent blood transfusions and fairly recently she began having issues a day or so following her transfusions with symptoms to include chills, fever, and even shortness of breath. She received 2 units of packed red blood cells on Monday (2 days ago) and her production mechanic ordered a 6 day Medrol Dosepak to start the day following her transfusions in hopes that it may deirdre some of her symptoms. She reports feeling pretty good yesterday and she even felt fine this morning though not long after having coffee and toast she developed chills, rigors, and shortness of breath. She was also feeling nauseated and reports a couple of episodes of nonbilious and nonbloody emesis. In the emergency department her temperature was as high as 101? F for which she was given 1000 mg of IV Tylenol. Her white blood cell count was 23.7 with a neutrophil predominance though it looks like she has a chronic leukocytosis from her myeloproliferative disorder. The rest of her labs were pretty comparable to what they typically run though her AST he is a bit higher than usual. CRP was 2.9 and her procalcitonin just came back at 7.5. Urinalysis was not concerning for UTI. Chest x-ray showed improving edema or pneumonia compared to a study done several weeks ago at which time she was admitted with shortness of breath and concerns for congestive heart failure. She was diuresed during that stay and was also covered with antibiotics for possible underlying pneumonia with a procalcitonin at that time of 27.1. Echocardiogram showed LV systolic function at the lower limits of normal and diastolic dysfunction. Currently she is sitting up in bed and still has some mild conversational dyspnea but overall she thinks she is feeling better now that her fever has broken. She denies headache, neck ache, sinus congestion, sore throat, cough, abdominal pain, diarrhea, and dysuria. <Court Snowden PA-C - Last Filed: 12/03/21 22:22> Review of Systems Review of Systems: Twelve systems were reviewed. She reports feeling quite weak. No focal weakness. No syncope or near syncope but she has had some lightheadedness. No palpitations, sensations of racing heart, or pleuritic pain. She denies orthopnea, PND, and lower extremity edema. She has been sneezing a bit. Except as documented, all other systems were reviewed and are negative. <Court Snowden PA-C - Last Filed: 12/03/21 22:22> [facility] Past Medical History Medical History: Medical History (Updated 12/03/21 @ 13:[address] Snowden PA-C) Arthritis Chronic anemia She has required intermittent transfusions over the years and it is noted that she had an acute hemolytic anemic transfusion reaction in April 2019. Chronic kidney disease, stage 3 Chronic myeloproliferative disorder Followed by Dr. Luiz Lopez. On Jakafi. COVID-19 (05/2021) Diastolic congestive heart failure Echocardiogram in November 2021 showed [id number] LVH, normal LV size, LV systolic function at lower limits of normal with an EF between 50 to 55%, segmental wall motion abnormalities with hypokinesis of the basal and mid inferior segments, diastolic dysfunction, and moderate pulmonary hypertension. Essential (primary) hypertension Hyperlipidemia Hypothyroidism Myelodysplastic syndrome Low-grade MDS with refractory anemia. Followed by Dr. Lopez. 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 Monitored by Dr. Moe
[2021-12-03 14:03] LABS: Erythrocyte Sedimentation Rate 35 mm/hr (0-20)
--- NOTE | 2021-12-03 14:08 | ADMGEN ---
This patient, José Miguel Chan, was admitted to [facility] Surg Room 303-01. Patient/family oriented to hospital policies and general routines including ID bracelet, bed and alarms, visiting hours, pain management, procedures, bathroom and other care routines, personal items, smoking policy, room service/diet, and visiting hours. Information on how to activate the Rapid Response Team has been discussed. Patient/Family are encouraged to report perceived risks to care and to ask questions if they do not understand what they are told or what they should do.
[2021-12-03 14:15] LABS: Lactic Acid Reflex 1.7 mmol/L (0.7-2.1)
[2021-12-03 14:44] LABS: CRP 2.9 mg/dL (<1.0); Magnesium 1.8 mg/dL (1.6-2.3)
[2021-12-03 14:59] LABS: Procalcitonin 7.5 ng/mL
[2021-12-03 15:14] LABS: Hepatitis B Surface Antigen Negative (Negative)
--- NOTE | 2021-12-03 15:14 | PHAR ---
Addendum entered by Gloria Macias [facility] 12/03/21 15:17: DIRECTIONS ON BOTTLE ARE TAKE ONE TABLET 2 TIMES A DAY AT SAME TIME EACH DAY. WITH OR WITHOUT FOOD Original Note: RX [id number] IDENTIFIED TO CONTAIN DRUG NAME: JAKAFI INGREDIENTS: RUXOLITINIB PHOSPHATE -- 5 MG RELATED DOCUMENTS: DRUGDEX EVALUATIONS - RUXOLITINIB COLOR: WHITE SHAPE: [place] IMPRINT: 5 , INCY FORM: ORAL TABLET
[2021-12-03 15:20] LABS: HAV RESULT Negative (Negative); Hepatitis B Core IgM Result Negative (Negative)
[2021-12-03 15:31] LABS: Hepatitis C Virus Antibody Negative (Negative)
[2021-12-03 17:55] LABS: Add Urine Microscopic? YES; Appearance Urine Cloudy (Clear); Bacteria Urine Trace /hpf; Bilirubin Urine Negative (Negative); Blood Urine Negative (Negative); Color Urine Yellow (Yellow); Glucose Urine UA Negative (Negative); Ketones Urine Negative (Negative); Leukocyte Esterase Ur Trace LEU/UL (NEGATIVE); Mucus Urine Rare /lpf; Nitrate Urine Negative (Negative); Protein Urine Negative (Negative); Specific Grav Ur 1.015 (1.001-1.035); Squamous Epithelial Cell Urine Rare /hpf (Few); Urobilinogen Urine Negative mg/dL (<2.0)
[2021-12-03 23:16] LABS: D Dimer 0.84 ug/mL (<0.48)
[2021-12-04] MEDS: LEVOTHYROXINE SODIUM 50 MCG TABLET PO (05:39)
[2021-12-04 05:46] LABS: Hematocrit 25.5 % (37.0-47.0); Hemoglobin 7.4 g/dL (12.0-15.0); Mean Corpuscular Hemoglobin 29.7 pg (26-34); Mean Corpuscular Volume 102.4 fl (80-100); Mean Platelet Volume 10.4 fl (7.4-10.4); Platelet Count Result 486 k/mm3 (150-375); Red Blood Count 2.49 M/mm3 (4.2-5.4); White Blood Count 21.3 K/mm3 (4.5-10.0)
[2021-12-04 05:50] VITALS: BP 125/46; PULSE 54; RESP 18; TEMP 36.7; O2SAT 99
[2021-12-04 05:54] LABS: Alanine Aminotransferase 18 U/L (4-35); Albumin Level 3.9 g/dL (3.5-5.1); Alkaline Phosphatase 74 U/L (38-126); Anion Gap 8 mmol/L (8-16); Aspartate Amino Transferase 42 U/L (14-36); Bilirubin,Total 0.8 mg/dL (0.2-1.3); Blood Urea Nitrogen 46 mg/dL (7-17); Calcium 7.9 mg/dL (8.4-10.2); Carbon Dioxide 19 mmol/L (22-30); Chloride 108 mmol/L (98-107); Estimated CRCL calculation 24 ml/min; Estimated Glomerular Filt Rate 33; Glucose 93 mg/dL (65-110); Potassium 5.2 mmol/L (3.4-5.0); Sodium 135 mmol/L (137-145)
--- NOTE | 2021-12-04 06:01 | PHAR ---
PHARMACY VERIFIED HOME MED: *USE FROM HOME* Ruxolitinib [Jakafi] 5 mg tablet TAKE 1 TABLET BY MOUTH TWICE DAILY
[2021-12-04 08:01] VITALS: O2SAT 98
[2021-12-04] MEDS: PYRIDOXINE HCL 50 MG TABLET 200 MG PO (08:13)
[2021-12-04] MEDS: PANTOPRAZOLE 40 MG TABLET PO (08:14)
[2021-12-04] MEDS: lisinopriL 20 MG TABLET PO (08:14)
[2021-12-04] MEDS: ASPIRIN 81 MG ENTERIC TABLET PO (08:14)
[2021-12-04] MEDS: FUROSEMIDE 20 MG TABLET PO (08:14)
[2021-12-04] MEDS: GABAPENTIN 300 MG CAPSULE PO ×3 (08:18→16:27)
--- NOTE | 2021-12-04 08:52 | PC.NURSE ---
Reported wbc's 21.3 and K 5.2 to Md Carlisle, continue to monitor at this time.
[2021-12-04 09:46] VITALS: O2SAT 91
--- NOTE | 2021-12-04 10:38 | PM.IMPN ---
Progress Note: A&P Assessment and Plan (1) Acute respiratory failure with hypoxia: Code(s): J96.01 - Acute respiratory failure with hypoxia Status: Acute Assessment and Plan: Currently on 4 L nasal cannula. Chest x-ray shows mild bibasilar airspace disease with improving edema or pneumonia compared to imaging taken several weeks ago as detailed in HPI. Once again the question is whether or not this is pneumonia, pulmonary edema, or a combination of both. TACO and TRALI are still possibilities though she is 2 days post transfusion. Given her elevated BNP, she will be diuresed with close monitoring of volume status. Given her immunocompromised state and elevated procalcitonin she will be started on empiric antibiotics pending cultures. SARS-CoV-2 by PCR was negative. Pulmonary embolism is a consideration and perhaps a bit less likely. D-dimer is pending in a positive she will be sent for chest CTA which may help delineate her infiltrates as well. 12/04/2021 interval history: most likely patient with TACO (transfusion associated circulatory overload) patient being diuresed is feeling much better compared to when she arrived not a short of breath and currently off oxygen, her D-dimer is slightly elevated since patient oxygen requirement is decreased most likely patient does not have pulmonary emboli, to further evaluate will do the lower extremity Doppler, over patient clinical symptoms are improved if chest x-ray is improving will continue present management and monitor. (2) Fever: Code(s): R50.9 - Fever, unspecified Status: Acute Assessment and Plan: Perhaps a delayed transfusion reaction though cannot rule out underlying infection thus she has been started on empiric cefepime and vancomycin pending cultures. (3) Chronic myeloproliferative disorder: Code(s): D47.1 - Chronic myeloproliferative disease Status: Acute Assessment and Plan: Requiring frequent blood transfusions as detailed above. Hemoglobin and hematocrit are stable. (4) Myelodysplastic syndrome: Code(s): D46.9 - Myelodysplastic syndrome, unspecified Status: Acute Assessment and Plan: Followed by Dr. Luiz Lopez. Continue Kamarafi. (5) Diastolic congestive heart failure: Code(s): I50.30 - Unspecified diastolic (congestive) heart failure Status: Acute Assessment and Plan: Chest x-ray shows possible pulmonary edema as above with elevated proBNP. No lower extremity edema to speak of. Continue cautious diuresis with close monitoring of volume status. (6) Abnormal chest x-ray: Code(s): R93.89 - Abnormal findings on diagnostic imaging of other specified body structures Status: Acute Assessment and Plan: As detailed above. (7) Essential (primary) hypertension: Code(s): I10 - Essential (primary) hypertension Status: Acute Assessment and Plan: Blood pressures were reviewed and they are stable. Antihypertensives will be reviewed and resumed as appropriate. (8) Hypothyroidism: Code(s): E03.9 - Hypothyroidism, unspecified Status: Acute Assessment and Plan: Continue levothyroxine. Subjective Date/time seen: 12/04/21 10:38 HPI This is a very pleasant 86-year-old female with chronic myeloproliferative disorder, myelodysplastic syndrome, chronic kidney disease, diastolic congestive heart failure, hypertension, hyperlipidemia, and hypothyroidism who presented to the emergency department via EMS from home for evaluation of shortness of breath. She requires frequent blood transfusions and fairly recently she began having issues a day or so following her transfusions with symptoms to include chills, fever, and even shortness of breath. She received 2 units of packed red blood cells on Monday (2 days ago) and her psychologist clinical ordered a 6 day Medrol Dosepak to start the day following her transfusions in hopes that it may
[2021-12-04 14:00] VITALS: BP 120/48; PULSE 66; RESP 18; TEMP 36.7; O2SAT 98
[2021-12-04 22:00] VITALS: BP 111/40; PULSE 64; RESP 16; TEMP 36.5; O2SAT 90
[2021-12-05 05:20] LABS: Hematocrit 26.2 % (37.0-47.0); Hemoglobin 7.6 g/dL (12.0-15.0); Mean Corpuscular Hemoglobin 29.6 pg (26-34); Mean Corpuscular Volume 101.9 fl (80-100); Mean Platelet Volume 10.8 fl (7.4-10.4); Platelet Count Result 469 k/mm3 (150-375); Red Blood Count 2.57 M/mm3 (4.2-5.4); Red Cell Distribution Width 21.9 % (11.5-14.5); White Blood Count 19.8 K/mm3 (4.5-10.0)
[2021-12-05] MEDS: LEVOTHYROXINE SODIUM 50 MCG TABLET PO (05:33)
[2021-12-05 05:36] LABS: Anion Gap 9 mmol/L (8-16); Blood Urea Nitrogen 49 mg/dL (7-17); Calcium 7.9 mg/dL (8.4-10.2); Carbon Dioxide 18 mmol/L (22-30); Chloride 109 mmol/L (98-107); Estimated CRCL calculation 26 ml/min; Estimated Glomerular Filt Rate 36; Glucose 101 mg/dL (65-110); Potassium 4.9 mmol/L (3.4-5.0); Sodium 136 mmol/L (137-145)
[2021-12-05 06:00] VITALS: BP 131/57; PULSE 60; RESP 18; TEMP 36.2; O2SAT 95
[2021-12-05] MEDS: FUROSEMIDE 20 MG TABLET PO (08:28)
[2021-12-05] MEDS: ASPIRIN 81 MG ENTERIC TABLET PO (08:28)
[2021-12-05] MEDS: GABAPENTIN 300 MG CAPSULE PO ×3 (08:29→16:49)
[2021-12-05] MEDS: lisinopriL 20 MG TABLET PO (08:30)
[2021-12-05] MEDS: PANTOPRAZOLE 40 MG TABLET PO (08:30)
[2021-12-05] MEDS: PYRIDOXINE HCL 50 MG TABLET 200 MG PO (08:31)
--- NOTE | 2021-12-05 09:03 | PM.IMPN ---
Progress Note: A&P Assessment and Plan (1) Acute respiratory failure with hypoxia: Code(s): J96.01 - Acute respiratory failure with hypoxia Status: Acute Assessment and Plan: Currently on 4 L nasal cannula. Chest x-ray shows mild bibasilar airspace disease with improving edema or pneumonia compared to imaging taken several weeks ago as detailed in HPI. Once again the question is whether or not this is pneumonia, pulmonary edema, or a combination of both. TACO and TRALI are still possibilities though she is 2 days post transfusion. Given her elevated BNP, she will be diuresed with close monitoring of volume status. Given her immunocompromised state and elevated procalcitonin she will be started on empiric antibiotics pending cultures. SARS-CoV-2 by PCR was negative. Pulmonary embolism is a consideration and perhaps a bit less likely. D-dimer is pending in a positive she will be sent for chest CTA which may help delineate her infiltrates as well. 12/04/2021 interval history: most likely patient with TACO (transfusion associated circulatory overload) patient being diuresed is feeling much better compared to when she arrived not a short of breath and currently off oxygen, her D-dimer is slightly elevated since patient oxygen requirement is decreased most likely patient does not have pulmonary emboli, to further evaluate will do the lower extremity Doppler, over patient clinical symptoms are improved if chest x-ray is improving will continue present management and monitor. 12/05/2021 interval history: most likely patient with TACO (transfusion associated circulatory overload) patient being diuresed is feeling much better compared to when she arrived not a short of breath and currently off oxygen, her D-dimer was slightly elevated since patient oxygen requirement is decreased most likely patient does not have pulmonary emboli, lower extremity Doppler is negative for DVT, patient clinical symptoms have improved chest x-ray is improving will continue present management and monitor. possibly discharge her tomorrow. (2) Fever: Code(s): R50.9 - Fever, unspecified Status: Acute Assessment and Plan: Perhaps a delayed transfusion reaction though cannot rule out underlying infection thus she has been started on empiric cefepime and vancomycin pending cultures. (3) Chronic myeloproliferative disorder: Code(s): D47.1 - Chronic myeloproliferative disease Status: Acute Assessment and Plan: Requiring frequent blood transfusions as detailed above. Hemoglobin and hematocrit are stable. (4) Myelodysplastic syndrome: Code(s): D46.9 - Myelodysplastic syndrome, unspecified Status: Acute Assessment and Plan: Followed by Dr. Luiz Lopez. Continue Jakafi. (5) Diastolic congestive heart failure: Code(s): I50.30 - Unspecified diastolic (congestive) heart failure Status: Acute Assessment and Plan: Chest x-ray shows possible pulmonary edema as above with elevated proBNP. No lower extremity edema to speak of. Continue cautious diuresis with close monitoring of volume status. (6) Abnormal chest x-ray: Code(s): R93.89 - Abnormal findings on diagnostic imaging of other specified body structures Status: Acute Assessment and Plan: As detailed above. (7) Essential (primary) hypertension: Code(s): I10 - Essential (primary) hypertension Status: Acute Assessment and Plan: Blood pressures were reviewed and they are stable. Antihypertensives will be reviewed and resumed as appropriate. (8) Hypothyroidism: Code(s): E03.9 - Hypothyroidism, unspecified Status: Acute Assessment and Plan: Continue levothyroxine. Subjective Date/time seen: Currently on 4 L nasal cannula. Chest x-ray shows mild bibasilar airspace disease with improving edema or pneumonia compared to imaging taken several weeks ago as detailed
[2021-12-05 14:00] VITALS: BP 123/46; PULSE 59; RESP 16; TEMP 36.4; O2SAT 100
[2021-12-05] MEDS: hydrALAZINE HCL 25 MG TABLET PO (16:49)
[2021-12-05 22:00] VITALS: BP 123/48; PULSE 56; RESP 18; TEMP 36.3; O2SAT 93
[2021-12-06] MEDS: LEVOTHYROXINE SODIUM 50 MCG TABLET PO (05:36)
[2021-12-06 05:38] LABS: Hematocrit 27.3 % (37.0-47.0); Mean Corpuscular HGB Conc 29.3 g/dl (32-36); Mean Corpuscular Hemoglobin 29.5 pg (26-34); Mean Corpuscular Volume 100.7 fl (80-100); Mean Platelet Volume 11.1 fl (7.4-10.4); Platelet Count Result 523 k/mm3 (150-375); Red Blood Count 2.71 M/mm3 (4.2-5.4); Red Cell Distribution Width 22.3 % (11.5-14.5); White Blood Count 18.5 K/mm3 (4.5-10.0)
[2021-12-06 05:48] LABS: Anion Gap 7 mmol/L (8-16); Blood Urea Nitrogen 41 mg/dL (7-17); Calcium 8.1 mg/dL (8.4-10.2); Carbon Dioxide 21 mmol/L (22-30); Chloride 108 mmol/L (98-107); Estimated CRCL calculation 27 ml/min; Estimated Glomerular Filt Rate 39; Glucose 101 mg/dL (65-110); Potassium 4.6 mmol/L (3.4-5.0); Sodium 136 mmol/L (137-145)
[2021-12-06 06:00] VITALS: BP 132/54; PULSE 55; RESP 18; TEMP 36.1; O2SAT 94
[2021-12-06 07:25] VITALS: PULSE 55; RESP 18; O2SAT 94
[2021-12-06] MEDS: ASPIRIN 81 MG ENTERIC TABLET PO (07:54)
[2021-12-06] MEDS: FUROSEMIDE 20 MG TABLET PO (07:54)
[2021-12-06] MEDS: PYRIDOXINE HCL 50 MG TABLET 200 MG PO (07:54)
[2021-12-06] MEDS: GABAPENTIN 300 MG CAPSULE PO (07:54)
[2021-12-06] MEDS: lisinopriL 20 MG TABLET PO (07:55)
[2021-12-06] MEDS: PANTOPRAZOLE 40 MG TABLET PO (07:55)
[2021-12-06 08:14] VITALS: O2SAT 92
--- NOTE | 2021-12-06 10:31 | PM.DS ---
DS: Admitting Diagnosis Discharge Date 12/06/2021 Admitting Diagnosis shortness of breath DS: Discharge Diagnosis Discharge Diagnosis (1) Acute respiratory failure with hypoxia: Code(s): J96.01 - Acute respiratory failure with hypoxia Status: Acute Assessment and Plan: Currently on 4 L nasal cannula. Chest x-ray shows mild bibasilar airspace disease with improving edema or pneumonia compared to imaging taken several weeks ago as detailed in HPI. Once again the question is whether or not this is pneumonia, pulmonary edema, or a combination of both. TACO and TRALI are still possibilities though she is 2 days post transfusion. Given her elevated BNP, she will be diuresed with close monitoring of volume status. Given her immunocompromised state and elevated procalcitonin she will be started on empiric antibiotics pending cultures. SARS-CoV-2 by PCR was negative. Pulmonary embolism is a consideration and perhaps a bit less likely. D-dimer is pending in a positive she will be sent for chest CTA which may help delineate her infiltrates as well. 12/04/2021 interval history: most likely patient with TACO (transfusion associated circulatory overload) patient being diuresed is feeling much better compared to when she arrived not a short of breath and currently off oxygen, her D-dimer is slightly elevated since patient oxygen requirement is decreased most likely patient does not have pulmonary emboli, to further evaluate will do the lower extremity Doppler, over patient clinical symptoms are improved if chest x-ray is improving will continue present management and monitor. 12/05/2021 interval history: most likely patient with TACO (transfusion associated circulatory overload) patient being diuresed is feeling much better compared to when she arrived not a short of breath and currently off oxygen, her D-dimer was slightly elevated since patient oxygen requirement is decreased most likely patient does not have pulmonary emboli, lower extremity Doppler is negative for DVT, patient clinical symptoms have improved chest x-ray is improving will continue present management and monitor. possibly discharge her tomorrow. (2) Fever: Code(s): R50.9 - Fever, unspecified Status: Acute Assessment and Plan: Perhaps a delayed transfusion reaction though cannot rule out underlying infection thus she has been started on empiric cefepime and vancomycin pending cultures. (3) Chronic myeloproliferative disorder: Code(s): D47.1 - Chronic myeloproliferative disease Status: Acute Assessment and Plan: Requiring frequent blood transfusions as detailed above. Hemoglobin and hematocrit are stable. (4) Myelodysplastic syndrome: Code(s): D46.9 - Myelodysplastic syndrome, unspecified Status: Acute Assessment and Plan: Followed by Dr. Luiz Lopez. Continue Jakafi. (5) Diastolic congestive heart failure: Code(s): I50.30 - Unspecified diastolic (congestive) heart failure Status: Acute Assessment and Plan: Chest x-ray shows possible pulmonary edema as above with elevated proBNP. No lower extremity edema to speak of. Continue cautious diuresis with close monitoring of volume status. (6) Abnormal chest x-ray: Code(s): R93.89 - Abnormal findings on diagnostic imaging of other specified body structures Status: Acute Assessment and Plan: As detailed above. (7) Essential (primary) hypertension: Code(s): I10 - Essential (primary) hypertension Status: Acute Assessment and Plan: Blood pressures were reviewed and they are stable. Antihypertensives will be reviewed and resumed as appropriate. (8) Hypothyroidism: Code(s): E03.9 - Hypothyroidism, unspecified Status: Acute Assessment and Plan: Continue levothyroxine. DS: Summary Hospital Course Reason for hospitalization: Shortness of breath. <Court Kline Lefty
== END 2021-12-06 11:35 | disposition home health service (06) ==
LOC: ANHED 13:00 → ANH3MEDSUR 13:01
PROVIDERS: Physician Assistant; Admitting Provider Family Medicine; Emergency Provider General Practice; PCP Internal Medicine; Visit Provider Family Medicine
DX: J96.01 Acute respiratory failure with hypoxia (principal); I13.0 Hypertensive heart and chronic kidney disease with heart failure and stage 1 through stage 4 chronic kidney disease, or unspecified chronic kidney disease; N18.30 Chronic kidney disease, stage 3 unspecified; I50.30 Unspecified diastolic (congestive) heart failure; R11.2 Nausea with vomiting, unspecified; R50.9 Fever, unspecified; D47.1 Chronic myeloproliferative disease; D46.9 Myelodysplastic syndrome, unspecified; E78.5 Hyperlipidemia, unspecified; E03.9 Hypothyroidism, unspecified; R93.89 Abnormal findings on diagnostic imaging of other specified body structures; Z20.822 Contact with and (suspected) exposure to COVID-19; Z87.891 Personal history of nicotine dependence; Z86.16 Personal history of COVID-19; Z66 Do not resuscitate; Z79.82 Long term (current) use of aspirin
CPT/HCPCS: 36415; 36600; 71046; 80048; 80053; 80074; 81001; 82375; 82805; 83050; 83605; 83690; 83735; 83880; 84145; 84443; 84484; 85025; 85027; 85380; 85610; 85652; 85730; 86140; 86850; 86880; 86900; 86901; 86902; 87040; 87086; 87502; 93005; 93970; 96365; 96367; 96375; 96376; 99285; A9270; C9803; G0378; J0131; J0456; J0692; J0696; J1940; J2405; J3370; U0003; U0005

== ENCOUNTER 2021-12-15 07:30 | Outpatient (RCR) | payer MEDICARE, MEDICAID, SELFPAY ==
[2021-12-01] MEDS: FAMOTIDINE 20 MG/2 ML VIAL IV PUSH (08:52)
[2021-12-01 08:53] LABS: Hematocrit 22.1 % (37.0-47.0)
[2021-12-01] MEDS: methylPREDNISolone SOD SUCC 125 MG VIAL IV PUSH (08:53)
[2021-12-01] MEDS: ACETAMINOPHEN 325 MG TABLET 650 MG PO (08:53)
[2021-12-01] MEDS: diphenhydrAMINE HCl INJ 50 MG/ML VIAL 25 MG IV PUSH (08:53)
[2021-12-01 09:08] LABS: Hemoglobin 6.5 g/dL (12.0-15.0)
[2021-12-01] MEDS: SODIUM CHLORIDE 0.9% IV 250 ML 30 ML IV CONT (09:30)
[2021-12-01 10:02] VITALS: BP 140/60; PULSE 61; RESP 16; TEMP 36.9; O2SAT 96
[2021-12-01 10:17] VITALS: BP 145/61; PULSE 63; RESP 16; TEMP 37.1; O2SAT 95
[2021-12-01 11:17] VITALS: BP 127/70; PULSE 66; RESP 16; TEMP 37.1; O2SAT 94
[2021-12-01 12:17] VITALS: BP 140/70; PULSE 61; RESP 16; TEMP 37.2; O2SAT 96
[2021-12-01 13:00] VITALS: BP 142/56; PULSE 61; RESP 16; TEMP 37.2; O2SAT 95
== END 2022-02-27 23:59 | disposition home or self-care (01) ==
LOC: ANHCPCTRAN 07:30
PROVIDERS: PCP Internal Medicine; Visit Provider Internal Medicine Medical Oncology
DX: D46.9 Myelodysplastic syndrome, unspecified (principal)
CPT/HCPCS: 36415; 36430; 85014; 85018; 86850; 86870; 86880; 86900; 86901; 86902; 86922; A9270; J1200; J2930; J7050; P9016

== ENCOUNTER 2021-12-21 16:37 | Outpatient (NON) | payer MEDICARE, MEDICAID, SELFPAY ==
[2021-12-21 17:32] LABS: Hematocrit 24.5 % (37.0-47.0); Hemoglobin 7.3 g/dL (12.0-15.0); Mean Corpuscular HGB Conc 29.8 g/dl (32-36); Mean Corpuscular Hemoglobin 29.8 pg (26-34); Mean Platelet Volume 11.1 fl (7.4-10.4); Platelet Count Result 544 k/mm3 (150-375); Red Blood Count 2.45 M/mm3 (4.2-5.4); White Blood Count 14.4 K/mm3 (4.5-10.0)
[2021-12-21 19:54] LABS: Band Neutrophils Percent 12 % (0-6); Eosinophils Absolute Manual 0.43 K/mm3 (0.02-0.5); Eosinophils Percent Manual 3 % (0-4); Lymphocytes Absolute Manual 1.87 K/mm3 (1.1-4.5); Metamyelocytes Percent 10 %; Monocytes Absolute Manual 0.86 K/mm3 (0.1-0.90); Monocytes Percent Manual 6 % (3-9); Neutrophils Absolute Manual 9.79 K/mm3 (1.7-7.2); Neutrophils Percent Manual 56 % (46-73); Nucleated Red Blood Cells 7 %; Total Cells Counted 100
[2021-12-21 19:55] LABS: Platelet Estimate Adequate (Adequate)
[2021-12-21 19:56] LABS: Ovalocytes 1+ (NORMAL)
[2021-12-21 19:57] LABS: Anisocytosis 1+ (NORMAL); Schistocytes 1+ (NORMAL)
== END 2021-12-21 16:38 | disposition home or self-care (01) ==
PROVIDERS: PCP Internal Medicine; Visit Provider Internal Medicine Medical Oncology
DX: D46.9 Myelodysplastic syndrome, unspecified (principal)
CPT/HCPCS: 85025

== ENCOUNTER 2022-05-10 16:58 | Inpatient (IN) | payer MEDICARE, MEDICAID, SELFPAY ==
[2022-05-10] VITALS (20 sets, daily range): BP systolic 124–150; BP diastolic 49–70; PULSE 62–83; RESP 16–23; TEMP 36.7–37.2; O2SAT 91–98
--- NOTE | ~2022-05-10 | US_ITS ---
EXAMINATION: US right upper quadrant DATE: 05/13/2022 13:48 INDICATION: Abdominal pain. TECHNIQUE: Multiple grayscale and Doppler ultrasound images of the abdomen were obtained. COMPARISON: Ultrasound 09/29/2021 FINDINGS: The visualized portions of the head and body of the pancreas are normal. The liver is andrea l without focal lesion. There is normal flow in main portal vein. The gallbladder is normal in size a nd contains sludge. No gallstones or gallbladder wall thickening. There is no sonographic Courtney sign . The common duct is normal and measures 3 mm. IMPRESSION: 1. Gallbladder sludge. No evidence of acute cholecystitis. Reviewed, dictated and finalized at location A.
--- NOTE | ~2022-05-10 | XR_ITS ---
XR chest 1V portable 05/10/2022 15:54 Indication: Fever and shortness of breath Procedure: AP portable chest Comparison: Comparison to multiple prior studies sequentially, with oldest reviewed study dated 05/24. Findings: Cardiomegaly. Improving bilateral airspace disease. Small right pleural effusion. No pneumo thorax. Impression: 1: Improving bilateral airspace disease, likely resolving pulmonary edema versus pneumonia. Reviewed, dictated and finalized at location A. Impression: 1: Improving bilateral airspace disease, likely resolving pulmonary edema versu s pneumonia.
--- NOTE | ~2022-05-10 | XR_ITS ---
EXAMINATION: XR chest 1V portable DATE: 05/13/2022 10:32 INDICATION: Leukocytosis. TECHNIQUE: A single frontal view of the chest was obtained. COMPARISON: Chest single view 05/10/22, CT abdomen and pelvis 01/18/2013 FINDINGS: There are mild airspace opacities in the lower lung zones. There are small right pleural ef fusion. No pneumothorax. Cardiomegaly is noted. IMPRESSION: 1. Stable mild airspace opacities in the lower lung zones, consistent with atelectasis versus pneumon ia. 2. Stable small right pleural effusion. 3. Cardiomegaly. Reviewed, dictated and finalized at location A. IMPRESSION: 1. Stable mild airspace opacities in the lower lung zones, consistent with atel ectasis versus pneumonia. 2. Stable small right pleural effusion. 3. Cardiomegaly.
--- NOTE | 2022-05-10 15:54 | ECG_ITS ---
Measurements Intervals [place] Rate: 81 P: 41 LA: 176 QRS: -30 QRSD: 117 T: 55 QT: 389 QTc: 453 Interpretive Statements SINUS RHYTHM INCOMPLETE RIGHT BUNDLE BRANCH BLOCK [90+ ms QRS DURATION, TERMINAL R IN V1/V2, 40+ ms S IN I/aVL/V4/V5/V6] MODERATE VOLTAGE CRITERIA FOR LVH, CONSIDER NORMAL VARIANT [MEETS CRITERIA IN ONE OF: R(aVL), S(V1), R(V5), R(V5/V6)+S(V1)] POSSIBLE LATERAL MYOCARDIAL INFARCTION , PROBABLY OLD [30 ms Q WAVE IN I/aVL/V5/V6] COMPARED TO ECG 12/03/2021 09:01:16 SINUS RHYTHM NOW PRESENT INCOMPLETE RIGHT BUNDLE-BRANCH BLOCK NOW PRESENT Electronically Signed On 05-10-2022 16:45:10 CDT by Neena Hernandez M.D.
[2022-05-10 16:14] LABS: Basophils Absolute Auto 0.2 K/mm3 (0.0-0.1); Basophils Percent Auto 0.9 % (0.2-1.2); Eosinophils Absolute Auto 0.3 K/mm3 (0-0.3); Eosinophils Percent Auto 1.7 % (0-4.4); Hematocrit 23.5 % (37.0-47.0); Immature Granulocyte Absolute 3.75 K/mm3 (0.00-0.031); Immature Granulocyte Percent A 21.9 % (0-0.5); Lymphocytes Absolute Auto 1.54 K/mm3 (0.9-3.2); Mean Corpuscular HGB Conc 28.9 g/dl (32-36); Mean Corpuscular Hemoglobin 27.9 pg (26-34); Mean Corpuscular Volume 96.3 fl (80-100); Mean Platelet Volume 11.3 fl (7.4-10.4); Monocytes Absolute Auto 2.5 K/mm3 (0.1-0.6); Monocytes Percent Auto 14.4 % (2.6-8.5); Neutrophils Absolute Auto 8.9 K/mm3 (1.3-6.7); Neutrophils Percent Auto 52.1 % (45.5-73.1); Nucleated Red Blood Cells Absolute Auto 0.2 K/mm3 (0.0-0.012); Nucleated Red Blood Cells Perc 1.3 % (0.0-0.2); Platelet Count Result 559 k/mm3 (150-375); Red Blood Count 2.44 M/mm3 (4.2-5.4); Red Cell Distribution Width 22.7 % (11.5-14.5); White Blood Count 17.1 K/mm3 (4.5-10.0)
[2022-05-10 16:22] LABS: Lactic Acid Reflex 0.6 mmol/L (0.7-2.0)
[2022-05-10 16:26] LABS: Alanine Aminotransferase 18 U/L (6-35); Albumin Level 4.2 g/dL (3.5-5.1); Alkaline Phosphatase 90 U/L (38-126); Anion Gap 9 mmol/L (8-16); Aspartate Amino Transferase 87 U/L (14-36); Bilirubin,Total 1.1 mg/dL (0.2-1.3); Blood Urea Nitrogen 33 mg/dL (7-17); Calcium 8.3 mg/dL (8.4-10.2); Carbon Dioxide 23 mmol/L (22-30); Chloride 103 mmol/L (98-107); Estimated CRCL calculation 32 ml/min; Estimated Glomerular Filt Rate 47; Glucose 98 mg/dL (65-110); Potassium 4.6 mmol/L (3.4-5.0); Sodium 135 mmol/L (137-145)
[2022-05-10 16:32] LABS: SARS-CoV-2 RNA PCR Negative
[2022-05-10 17:09] LABS: Hemoglobin 6.8 g/dL (12.0-15.0)
[2022-05-10 17:10] LABS: Hypochromasia 2+ (NORMAL); Platelet Estimate Increased (Adequate)
[2022-05-10 17:11] LABS: Anisocytosis 2+ (NORMAL); Stomatocytes 1+ (NORMAL)
--- NOTE | 2022-05-10 17:17 | PC.NURSE ---
Jakafi 5 mg, verbal order from provider to give pt her nightly dose.
--- NOTE | 2022-05-10 17:33 | ED.FEVER ---
HPI - Fever General Chief Complaint: Fever Stated Complaint: fever/weakness Source: patient Mode of arrival: EMS Limitations: no limitations History of Present Illness HPI Narrative: 87-year-old with a history of myelofibrosis here with complaints of fever since yesterday. She also states that she is short of breath she is not on any home oxygen. She has occasional nonproductive cough. No history of chest pain, abdominal pain. No history of nausea or vomiting. Denies urinary symptoms. Patient states that she had multiple COVID test done which were all negative. MD elicited complaint: fever Pertinent past history: immunosuppression Onset (ago): day(s) (1) Exacerbating factors: nothing Associated symptoms: denies other symptoms Treatments prior to arrival fever: acetaminophen Related Data Home Medications Medication Instructions Recorded Confirmed gabapentin 300 mg capsule 300 mg PO TID 04/26/21 03/07/22 pantoprazole 40 mg tablet,delayed 40 mg PO QAM 04/26/21 03/07/22 release pyridoxine (vitamin B6) 250 mg 200 mg PO DAILY 09/20/21 03/07/22 tablet hydralazine 25 mg tablet 25 mg PO DAILY 11/06/21 03/07/22 ruxolitinib 5 mg tablet (Jakafi) 5 mg PO BID 12/03/21 03/07/22 darbepoetin sidney in polysorbat 25 25 mcg subcut WEEKLY 01/14/22 03/07/22 mcg/mL in polysorbate injection (Aranesp) Allergies Allergy/AdvReac Type Severity Reaction Status Date / Time hydrocodone Allergy Severe vomiting Verified 05/10/22 15:47 codeine Allergy Mild Hives Verified 05/10/22 15:47 Sulfa (Sulfonamide Allergy Mild Rash Verified 05/10/22 15:47 Antibiotics) meloxicam Allergy Unknown Difficulty Verified 05/10/22 15:47 Breathing naproxen Allergy Unknown Other Verified 05/10/22 15:47 MUSCLE RELAXERS Allergy Mild rapid Uncoded 05/10/22 15:47 heart beat BIG E BLOOD ANTIBODY Allergy Unknown Anaphylactic Uncoded 05/10/22 15:47 Shock Review of Systems Review of Systems: All systems reviewed & are unremarkable except as noted in HPI and below Constitutional: Constitutional: Reports fever(s) and Reports weakness Eyes: Eyes: Reports no additional eye complaints ENT: Reports system reviewed and no additional complaints, except as documented Cardiovascular: Cardiovascular: Reports no additional cardiovascular complaints Respiratory: Respiratory: Reports no additional respiratory complaints and Reports dyspnea Gastrointestinal: Gastrointestinal: Reports no additional gastrointestinal complaints Genitourinary: Genitourinary: Reports no additional female genitourinary complaints Musculoskeletal: Musculoskeletal: Reports no additional musculoskeletal complaints Integumentary/Breasts: Skin/Breast: Reports system reviewed and no additional complaints, except as docu Neurologic: Reports system reviewed and no additional complaints, except as documented Endocrine: Endocrine: Reports no additional endocrine complaints PMFSH Past Medical History Medical History (Updated 05/10/22 @ 18:48 by Luan Easley MD) Arthritis Chronic anemia She has required intermittent transfusions over the years and it is noted that she had an acute hemolytic anemic transfusion reaction in April 2019. Chronic kidney disease, stage 3 Chronic myeloproliferative disorder Followed by Dr. Luiz Lopez. On Jakafi. COVID-19 (05/2021) Diastolic congestive heart failure Echocardiogram in November 2021 showed [id number] LVH, normal LV size, LV systolic function at lower limits of normal with an EF between 50 to 55%, segmental wall motion abnormalities with hypokinesis of the basal and mid inferior segments, diastolic dysfunction, and moderate pulmonary hypertension. Essential (primary) hypertension Hyperlipidemia Hypothyroidism Myelodysplastic syndrome Low-grade MDS with refractory anemia. Followed by Dr. Lopez. 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 Monitored by Dr. Lopez. Surgical History Surgical History (Updated 05/10/22 @ 18:07 by
[2022-05-10 17:43] LABS: Appearance Urine Clear (Clear); Bilirubin Urine Negative (Negative); Blood Urine Negative (Negative); Color Urine Yellow (Yellow); Glucose Urine UA Negative (Negative); Ketones Urine Negative (Negative); Leukocyte Esterase Ur Trace LEU/UL (Negative); Nitrate Urine Negative (Negative); Protein Urine Trace mg/dL (Negative); Urobilinogen Urine 0.2 mg/dL (<2.0); pH Urine 5.5 (5.0-9.0)
[2022-05-10 17:48] LABS: Mucus Urine Rare /lpf; RBC Urine 0-2 /hpf (0-2); Squamous Epithelial Cell Urine Rare /hpf (Few)
[2022-05-10 17:49] LABS: Add Urine Microscopic? YES
--- NOTE | 2022-05-10 18:03 | PM.IMHP ---
H&P: HPI History of Present Illness Date/Time: 05/10/22 18:03 Chief Complaint: Weakness and fatigue Narrative: This is a 87-year-old female patient who has a history of myelodysplastic syndrome with low-grade MDS with refractory anemia and is followed by . The patient has frequent blood transfusions. The patient had complained of self-reported fever since yesterday she was also short of breath and is not typically on home oxygen. She has no history of chest pain abdominal pain no nausea no vomiting. She denies any urinary symptoms. The patient stated that she had multiple COVID tests which were all negative. The patient is on immuno suppressive therapy. Her white count is noted to be 17.1 which is her baseline. H&H is 6.8 and 23.5. Patient has been type and crossmatch but has multiple antibodies which may take time to get the blood. The patient is afebrile here. She was started on IV fluids in the emergency room. The patient is being admitted to observation status on the date of service of 05/10/2022. Review of Systems Review of Systems: See HPI All systems reviewed & are unremarkable except as noted in HPI and below Constitutional: Constitutional: Reports as per HPI and Reports no additional constitutional complaints Eyes: Eyes: Reports as per HPI and Reports no additional eye complaints ENT: Reports system reviewed and no additional complaints, except as documented and Reports Normal hearing present Cardiovascular: Cardiovascular: Reports no additional cardiovascular complaints Respiratory: Respiratory: Reports no additional respiratory complaints and Reports no additional respiratory complaints Gastrointestinal: Gastrointestinal: Reports as per HPI and Reports no additional gastrointestinal complaints Musculoskeletal: Musculoskeletal: Reports no additional musculoskeletal complaints Integumentary/Breasts: Skin/Breast: Reports system reviewed and no additional complaints, except as docu and Reports as per HPI Neurologic: Reports system reviewed and no additional complaints, except as documented, Reports as per HPI and Reports Normal hearing present Psychiatric: Psychiatric: Reports no additional psychiatric complaints and Reports as per HPI Endocrine: Endocrine: Reports no additional endocrine complaints Hematologic/Lymphatic: Hematologic/Lymphatic: Reports no additional hematologic/lymphatic complaints Allergic/Immunologic: Allergic/Immunologic: Reports no additional allergic/immunologic complaints [facility] Past Medical History Medical History (Updated 05/10/22 @ 20:47 by Lindsey Wilson NP) Acute respiratory failure with hypoxia Arthritis Chronic anemia She has required intermittent transfusions over the years and it is noted that she had an acute hemolytic anemic transfusion reaction in April 2019. Chronic kidney disease, stage 3 Chronic myeloproliferative disorder Followed by Dr. Luiz Lopez. On Jakafi. COVID-19 (05/2021) Diastolic congestive heart failure Echocardiogram in November 2021 showed [id number]-[id number] LVH, normal LV size, LV systolic function at lower limits of normal with an EF between 50 to 55%, segmental wall motion abnormalities with hypokinesis of the basal and mid inferior segments, diastolic dysfunction, and moderate pulmonary hypertension. Elevated troponin Elevated troponin Essential (primary) hypertension Hyperlipidemia Hypothyroidism LLQ abdominal pain Myelodysplastic syndrome Low-grade MDS with refractory anemia. Followed by Dr. Lopez. 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 Monitored by Dr. Lopez. Surgical History Surgical History (Updated 05/10/22 @ 18:07 by Lindsey Wilson NP) H/O hand surgery History of bunionectomy of both great toes History of carpal tunnel release History of cataract surgery History of hammertoe correction History of repair of right rotator cuff Family History Family History (Reviewed 05/10/22 @ 20:34
--- NOTE | 2022-05-10 18:37 | ADMGEN ---
This patient, José Miguel Chan, was admitted to Medical Room 246-. Patient/family oriented to hospital policies and general routines including ID bracelet, bed and alarms, visiting hours, pain management, procedures, bathroom and other care routines, personal items, smoking policy, room service/diet, and visiting hours. Information on how to activate the Rapid Response Team has been discussed. Patient/Family are encouraged to report perceived risks to care and to ask questions if they do not understand what they are told or what they should do.
--- NOTE | 2022-05-10 19:33 | PC.NURSE ---
patient came up from ER without IV access and with fluids orders of NS at 75 mL/hr. Patient came up to 2 Med at 1630. After finishing admission questions and settling patient in, it was shift change. shift nurse manager nurse said she will place IV.
--- NOTE | 2022-05-10 22:32 | PHAR ---
DRUG NAME: JAKAFI INGREDIENTS: RUXOLITINIB PHOSPHATE -- 5 MG RELATED DOCUMENTS: DRUGDEX EVALUATIONS - RUXOLITINIB COLOR: WHITE SHAPE: [place] IMPRINT: 5 , INCY FORM: ORAL TABLET
[2022-05-11] VITALS (21 sets, daily range): BP systolic 120–177; BP diastolic 47–68; PULSE 67–100; RESP 12–24; TEMP 36.3–39.6; O2SAT 88–97
[2022-05-11] MEDS: SODIUM CHLORIDE 0.9% IV 250 ML 30 ML IV CONT (00:03)
[2022-05-11] MEDS: diphenhydrAMINE HCl INJ 50 MG/ML VIAL 25 MG IV PUSH (00:03)
[2022-05-11] MEDS: ACETAMINOPHEN 325 MG TABLET 650 MG PO ×3 (00:04→12:57)
[2022-05-11] MEDS: LEVOTHYROXINE SODIUM 50 MCG TABLET PO (05:43)
[2022-05-11 06:22] LABS: Basophils Absolute Auto 0.1 K/mm3 (0.0-0.1); Basophils Percent Auto 0.7 % (0.2-1.2); Eosinophils Absolute Auto 0.3 K/mm3 (0-0.3); Eosinophils Percent Auto 1.6 % (0-4.4); Hematocrit 27.4 % (37.0-47.0); Immature Granulocyte Absolute 3.94 K/mm3 (0.00-0.031); Immature Granulocyte Percent A 23.7 % (0-0.5); Lymphocytes Absolute Auto 1.28 K/mm3 (0.9-3.2); Lymphocytes Percent Auto 7.7 % (18.3-44.2); Mean Corpuscular HGB Conc 29.2 g/dl (32-36); Mean Corpuscular Hemoglobin 27.3 pg (26-34); Mean Corpuscular Volume 93.5 fl (80-100); Mean Platelet Volume 11.2 fl (7.4-10.4); Monocytes Absolute Auto 2.5 K/mm3 (0.1-0.6); Neutrophils Absolute Auto 8.5 K/mm3 (1.3-6.7); Neutrophils Percent Auto 51.3 % (45.5-73.1); Nucleated Red Blood Cells Absolute Auto 0.2 K/mm3 (0.0-0.012); Nucleated Red Blood Cells Perc 1.3 % (0.0-0.2); Platelet Count Result 520 k/mm3 (150-375); Red Blood Count 2.93 M/mm3 (4.2-5.4); Red Cell Distribution Width 23.3 % (11.5-14.5); White Blood Count 16.6 K/mm3 (4.5-10.0)
[2022-05-11 06:39] LABS: Anion Gap 9 mmol/L (8-16); Blood Urea Nitrogen 27 mg/dL (7-17); Calcium 8.4 mg/dL (8.4-10.2); Carbon Dioxide 25 mmol/L (22-30); Chloride 105 mmol/L (98-107); Estimated CRCL calculation 31 ml/min; Estimated Glomerular Filt Rate 43; Glucose 113 mg/dL (65-110); Magnesium 2.2 mg/dL (1.6-2.3); Potassium 4.4 mmol/L (3.4-5.0); Sodium 139 mmol/L (137-145)
[2022-05-11 06:44] LABS: Lactic Acid Reflex 0.6 mmol/L (0.7-2.0)
[2022-05-11 07:22] LABS: Platelet Estimate Adequate (Adequate)
[2022-05-11 07:23] LABS: Anisocytosis 2+ (NORMAL); Ovalocytes 2+ (NORMAL)
[2022-05-11 09:10] LABS: Hematocrit 26.7 % (37.0-47.0); Hemoglobin 7.8 g/dL (12.0-15.0); Mean Corpuscular HGB Conc 29.2 g/dl (32-36); Mean Corpuscular Hemoglobin 27.1 pg (26-34); Mean Corpuscular Volume 92.7 fl (80-100); Mean Platelet Volume 10.8 fl (7.4-10.4); Platelet Count Result 514 k/mm3 (150-375); Red Blood Count 2.88 M/mm3 (4.2-5.4); Red Cell Distribution Width 23.2 % (11.5-14.5); White Blood Count 18.9 K/mm3 (4.5-10.0)
[2022-05-11] MEDS: SODIUM CHLORIDE 0.9% IV 1,000 ML 150 ML IV CONT (09:10)
[2022-05-11 09:26] LABS: INR 1.4; Prothrombin Time 16.5 Seconds (11.1-14.7)
[2022-05-11 09:27] LABS: Fibrinogen 415 mg/dl (215-510); Partial Thromboplastin Time 41.2 SECONDS (22.3-36.8)
[2022-05-11] MEDS: EPINEPHrine HCL INJ 1 MG/ML AMPUL 0.3 MG IM (09:30)
[2022-05-11 09:38] LABS: Alanine Aminotransferase 17 U/L (6-35); Albumin Level 4.1 g/dL (3.5-5.1); Alkaline Phosphatase 111 U/L (38-126); Anion Gap 10 mmol/L (8-16); Aspartate Amino Transferase 54 U/L (14-36); Bilirubin,Total 1.2 mg/dL (0.2-1.3); Blood Urea Nitrogen 23 mg/dL (7-17); Calcium 8.4 mg/dL (8.4-10.2); Carbon Dioxide 22 mmol/L (22-30); Chloride 104 mmol/L (98-107); Estimated CRCL calculation 33 ml/min; Estimated Glomerular Filt Rate 47; Glucose 115 mg/dL (65-110); Potassium 4.3 mmol/L (3.4-5.0); Sodium 136 mmol/L (137-145)
[2022-05-11 09:40] LABS: Lactate Dehydrogenase 1109 U/L (120-246)
[2022-05-11] MEDS: FAMOTIDINE 20 MG/2 ML VIAL IV PUSH (09:42)
[2022-05-11] MEDS: LORATADINE 10 MG TABLET PO (09:45)
[2022-05-11] MEDS: PYRIDOXINE HCL 50 MG TABLET 200 MG PO (09:47)
[2022-05-11] MEDS: PANTOPRAZOLE 40 MG TABLET PO (09:47)
[2022-05-11] MEDS: FUROSEMIDE 40 MG TABLET PO (09:47)
[2022-05-11] MEDS: GABAPENTIN 300 MG CAPSULE PO ×3 (09:47→17:59)
[2022-05-11 09:48] LABS: Anisocytosis 2+ (NORMAL); Band Neutrophils Percent 3 % (0-6); Eosinophils Absolute Manual 0.18 K/mm3 (0.02-0.5); Eosinophils Percent Manual 1 % (0-4); Hypochromasia 1+ (NORMAL); Lymphocytes Absolute Manual 1.13 K/mm3 (1.1-4.5); Monocytes Absolute Manual 2.07 K/mm3 (0.1-0.90); Monocytes Percent Manual 11 % (3-9); Neutrophils Absolute Manual 15.49 K/mm3 (1.7-7.2); Neutrophils Percent Manual 79 % (46-73); Nucleated Red Blood Cells 3 %; Ovalocytes 2+ (NORMAL); Platelet Estimate Adequate (Adequate); Total Cells Counted 100
[2022-05-11 09:49] LABS: Tear Drop Cells 1+ (NORMAL)
[2022-05-11 10:13] LABS: D Dimer 1.26 ug/mL (<0.48)
[2022-05-11 10:29] LABS: Appearance Urine Clear (Clear); Bilirubin Urine Negative (Negative); Blood Urine Negative (Negative); Color Urine Yellow (Yellow); Glucose Urine UA Negative (Negative); Ketones Urine Negative (Negative); Leukocyte Esterase Ur Negative LEU/UL (NEGATIVE); Nitrate Urine Negative (Negative); Protein Urine 2+ mg/dL (Negative); Urobilinogen Urine 0.2 mg/dL (<2.0)
[2022-05-11 10:37] LABS: RBC Urine 0-2 /hpf (0-2); WBC Urine 0-3 /hpf (0-3)
--- NOTE | 2022-05-11 10:47 | PM.IMPN ---
Progress Note: A&P Assessment and Plan (1) Anemia: Code(s): D64.9 - Anemia, unspecified Status: Acute Assessment and Plan: -the patient is seen by Dr. Lisa for [place] dysplastic syndrome. According to the notes she has low-grade MDS with refractory anemia. -the patient has multiple antibodies and may take some time to find her blood type -she has had a history of having a hemolytic reaction to blood transfusion in the past. - Reportedly IV fluids were not initiated by nursing staff due to the patient being on Lasix. discuss starting IV fluids with the nursing staff and increase the fluid rate. due to her transfusion reaction -her vital signs are Currently stable . patient had a transfusion reaction this morning. She was administered a bolus of IV fluids, Reglan, and epinephrine with improvement. Labs were obtained for possible hemolytic reaction (2) Diastolic congestive heart failure: Code(s): I50.30 - Unspecified diastolic (congestive) heart failure Status: Acute Assessment and Plan: -last echo noted was on 05/21/2021 which was read as the following 1. Complete two-dimensional, color flow and Doppler transthoracic echocardiogram is performed. ? 2. Left ventricular chamber dimension is normal. ? 3. Left ventricular systolic function is normal, estimated at 65-70%. ? 4. The left ventricular diastolic function is grade II diastolic dysfunction. ? 5. Left atrial chamber dimension is mildly enlarged. ? 6. There is no aortic valve stenosis. ? 7. There is mild mitral valve regurgitation. ? 8. There is mild tricuspid valve regurgitation. ? 9. Mild pulmonary hypertension, estimated pulmonary arterial systolic pressure is 44 mmHg. -continue with current treatment -patient had been on Lasix (3) Myelodysplastic syndrome: Code(s): D46.9 - Myelodysplastic syndrome, unspecified Status: Acute Assessment and Plan: -consult hematology oncology -the daughter has brought the jakafi with her for us to use since it may be non formulary. -she has chronic leukocytosis (4) Chronic kidney disease, stage 3: Qualifiers: Chronic kidney disease stage 3 subtype: stage 3b (GFR 30-44) Qualified Code(s): N18.32 - Chronic kidney disease, stage 3b Code(s): N18.30 - Chronic kidney disease, stage 3 unspecified Status: Acute Assessment and Plan: -patient's BUN is 33 today which is usually in the 40s and her creatinine is 1.1 which is improved from previous 1.3-1.5. Estimated GFR is 47 which looks like it has improved from previous. -continue to monitor BMP (5) Generalized weakness: Code(s): R53.1 - Weakness Status: Acute Assessment and Plan: -PT OT evaluation -most likely related to the anemia (6) Essential (primary) hypertension: Code(s): I10 - Essential (primary) hypertension Status: Acute Assessment and Plan: -continue with home dose of Lasix -the patient stated that she had been on blood pressure medicines but is no longer on blood pressure pills. (7) Hypothyroidism: Code(s): E03.9 - Hypothyroidism, unspecified Status: Acute Assessment and Plan: -check thyroid levels. -continue with levothyroxine (8) History of transfusion reaction: Code(s): Z87.898 - Personal history of other specified conditions Status: Acute Assessment and Plan: -the patient will need to be screened carefully and may need to get her blood from outside sources. -the patient had a hemolytic reaction to blood transfusion in the past. Additional Plan The patient is a DNR Subjective Date/time seen: 05/11/22 10:47 Patient spiked a fever early this morning and received IV Tylenol, epinephrine, Reglan due to possible transfusion reaction. Patient also has multiple allergies therefore some medications were unable to be administered. Patient reports that she is had a reaction after receiving blood products every time [facility]
[2022-05-11 10:53] LABS: Add Urine Microscopic? YES
--- NOTE | 2022-05-11 11:07 | PCOTNOTE ---
Attempted OT evaluation, patient reports not feeling well at this time, declined participation with OT. Patient's daughter in room, agreeable to declining therapy at this time as well. RN notified.
--- NOTE | 2022-05-11 11:09 | PCPTNOTE ---
Attempted PT evaluation, patient reports not feeling well at this time, declined participation with PT. Patient's daughter in room, agreeable to declining therapy at this time as well. RN notified.
--- NOTE | 2022-05-11 18:43 | PDONCCN ---
HPI - Date of Consult Date/Time: 05/11/22 18:43 Requesting Physician: Ale Sebastian DO Primary Care Provider: Bo Caceres DO - Consult Narrative Reason for consult: Myelodysplastic syndrome Narrative: José Miguel Chan is a 87 year old female with history of low-grade myelodysplastic syndrome diagnosed about 4 years ago. Patient has been on Jakafi and Aranesp on every 3 weeks basis for at least 1 year duration. She is due to receive Aranesp now. She now came into the hospital with complain of low-grade fever without any other signs of infection including diarrhea, dysuria and cough. Labs showed hemoglobin of 6.8. Patient received blood transfusion and had transfusion reaction afterwards. According the patient she frequently have blood transfusion reaction. Her labs showed hemoglobin of 7.8 up from 6.8 after 1 unit of blood transfusion. Platelet count and WBC count was elevated. LDH was elevated at 11:00 a.m. and 9. Fabiola test was positive. She denies any bleeding including melena hematochezia. She has been complaining of tiredness and fatigue. Review of Systems - Review of Systems All systems reviewed & are unremarkable except as noted in HPI and bel - Neurologic Reports system reviewed and no additional complaints, except as documented, Reports hearing normal, Reports weakness PMFSH Medical History: Medical History (Last Updated 05/10/22 @ 20:47 by Lindsey Wilson NP) Acute respiratory failure with hypoxia Arthritis Chronic anemia She has required intermittent transfusions over the years and it is noted that she had an acute hemolytic anemic transfusion reaction in April 2019. Chronic kidney disease, stage 3 Chronic myeloproliferative disorder Followed by Dr. Luiz Lopez. On Jakafi. COVID-19 Onset Date: 05/2021 Diastolic congestive heart failure Echocardiogram in November 2021 showed hejj-jw-prdqeaxy LVH, normal LV size, LV systolic function at lower limits of normal with an EF between 50 to 55%, segmental wall motion abnormalities with hypokinesis of the basal and mid inferior segments, diastolic dysfunction, and moderate pulmonary hypertension. Elevated troponin Elevated troponin Essential (primary) hypertension Hyperlipidemia Hypothyroidism LLQ abdominal pain Myelodysplastic syndrome Low-grade MDS with refractory anemia. Followed by Dr. Lopez. 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 Monitored by Dr. Lopez. Surgical History: Surgical History (Last Updated 05/10/22 @ 18:07 by Lindsey Wilson NP) H/O hand surgery History of bunionectomy of both great toes History of carpal tunnel release History of cataract surgery History of hammertoe correction History of repair of right rotator cuff Family History: Family History (Last Reviewed 05/10/22 @ 20:34 by Lindsey Wilson NP) Father Family history of lung cancer, Onset Age: 56 Patient's father is Mother Patient's mother is - Social History Social History: Social History (Last Updated 05/10/22 @ 20:36 by Lindsey Wilson NP) Alcohol Use: Alcohol intake: never Substance Use: Substance use: never Substance use type: does not use Others: Spiritual care concerns: No Living Arrangements: Living arrangements: alone Smoking Status: Smoking status: Never smoker Tobacco type: cigarettes Second hand tobacco smoke exposure: Yes Smoking end date: 02/09/72 Meds Home Medications Medication Instructions Recorded Confirmed Type gabapentin 300 mg capsule 300 mg PO TID 04/26/21 05/10/22 History (Neurontin) pantoprazole 40 mg tablet,delayed 40 mg PO QAM 04/26/21 05/10/22 History release (Protonix) pyridoxine (vitamin B6) 250 mg 200 mg PO DAILY 09/20/21 05/10/22 History tablet (Vitamin B-6) ruxolitinib 5 mg tablet (Jakafi) 5 mg PO DAILY 12/03/21 05/11/22 History aspirin 81 mg tablet,
[2022-05-11 20:44] LABS: Immature Reticulocyte Fraction 33.2 % (3.0-15.9); Reticulocyte Hemoglobin Conten 29.1 pg (28.2-35.7); Reticulocyte Percent 3.16 % (0.7-4.3); Reticulocytes Absolute 0.09 B/L (32.2-175.7)
[2022-05-11 20:59] LABS: Iron 24 ug/dL (37-170)
[2022-05-11 21:09] LABS: Percent Iron Saturation 11 % (20-50)
[2022-05-11 22:04] LABS: Lactate Dehydrogenase 1079 U/L (120-246)
[2022-05-12] VITALS (12 sets, daily range): BP systolic 91–152; BP diastolic 46–65; PULSE 71–108; RESP 15–18; TEMP 36.1–37; O2SAT 90–100
[2022-05-12] MEDS: LEVOTHYROXINE SODIUM 50 MCG TABLET PO (06:01)
--- NOTE | 2022-05-12 06:49 | PM.IMPN ---
Progress Note: A&P Assessment and Plan (1) Anemia: Code(s): D64.9 - Anemia, unspecified Status: Acute Assessment and Plan: -the patient is seen by Dr. Lisa for [place] dysplastic syndrome. According to the notes she has low-grade MDS with refractory anemia. -the patient has multiple antibodies and may take some time to find her blood type -she has had a history of having a hemolytic reaction to blood transfusion in the past. - Reportedly IV fluids were not initiated by nursing staff due to the patient being on Lasix. discuss starting IV fluids with the nursing staff and increase the fluid rate. due to her transfusion reaction -her vital signs are Currently stable . patient had a transfusion reaction this morning. She was administered a bolus of IV fluids, Pepcid, and epinephrine with improvement. Labs were obtained for possible hemolytic reaction -- resolved (2) Diastolic congestive heart failure: Code(s): I50.30 - Unspecified diastolic (congestive) heart failure Status: Acute Assessment and Plan: -last echo noted was on 05/21/2021 which was read as the following 1. Complete two-dimensional, color flow and Doppler transthoracic echocardiogram is performed. ? 2. Left ventricular chamber dimension is normal. ? 3. Left ventricular systolic function is normal, estimated at 65-70%. ? 4. The left ventricular diastolic function is grade II diastolic dysfunction. ? 5. Left atrial chamber dimension is mildly enlarged. ? 6. There is no aortic valve stenosis. ? 7. There is mild mitral valve regurgitation. ? 8. There is mild tricuspid valve regurgitation. ? 9. Mild pulmonary hypertension, estimated pulmonary arterial systolic pressure is 44 mmHg. -continue with current treatment -patient had been on Lasix -- continue Lasix (3) Myelodysplastic syndrome: Code(s): D46.9 - Myelodysplastic syndrome, unspecified Status: Acute Assessment and Plan: -consult hematology oncology -the daughter has brought the jakafi with her for us to use since it may be non formulary. -she has chronic leukocytosis (4) Chronic kidney disease, stage 3: Qualifiers: Chronic kidney disease stage 3 subtype: stage 3b (GFR 30-44) Qualified Code(s): N18.32 - Chronic kidney disease, stage 3b Code(s): N18.30 - Chronic kidney disease, stage 3 unspecified Status: Acute Assessment and Plan: -patient's BUN is 33 today which is usually in the 40s and her creatinine is 1.1 which is improved from previous 1.3-1.5. Estimated GFR is 47 which looks like it has improved from previous. -continue to monitor BMP (5) Generalized weakness: Code(s): R53.1 - Weakness Status: Acute Assessment and Plan: -PT OT evaluation -most likely related to the anemia (6) Essential (primary) hypertension: Code(s): I10 - Essential (primary) hypertension Status: Acute Assessment and Plan: -continue with home dose of Lasix -the patient stated that she had been on blood pressure medicines but is no longer on blood pressure pills. (7) Hypothyroidism: Code(s): E03.9 - Hypothyroidism, unspecified Status: Acute Assessment and Plan: -check thyroid levels. -continue with levothyroxine (8) History of transfusion reaction: Code(s): Z87.898 - Personal history of other specified conditions Status: Acute Assessment and Plan: -the patient will need to be screened carefully and may need to get her blood from outside sources. -the patient had a hemolytic reaction to blood transfusion in the past. Additional Plan The patient is a DNR Subjective Date/time seen: 05/12/22 06:49 patient was evaluated VS were. She still reports she feels weak and fatigued. She has been feeling significantly weaker and fatigued for the past year after she keeps having these transfusion reactions after being diagnosed with mild dysplastic syndrome. Patient will burrows
[2022-05-12] MEDS: PANTOPRAZOLE 40 MG TABLET PO (08:37)
[2022-05-12] MEDS: LORATADINE 10 MG TABLET PO (08:37)
[2022-05-12] MEDS: PYRIDOXINE HCL 50 MG TABLET 200 MG PO (08:37)
[2022-05-12] MEDS: FUROSEMIDE 40 MG TABLET PO (08:37)
[2022-05-12] MEDS: GABAPENTIN 300 MG CAPSULE PO ×3 (08:37→17:34)
[2022-05-12 09:48] LABS: Anion Gap 14 mmol/L (8-16); Blood Urea Nitrogen 23 mg/dL (7-17); Calcium 7.9 mg/dL (8.4-10.2); Carbon Dioxide 18 mmol/L (22-30); Chloride 104 mmol/L (98-107); Estimated CRCL calculation 31 ml/min; Estimated Glomerular Filt Rate 43; Glucose 94 mg/dL (65-110); Potassium 4.3 mmol/L (3.4-5.0); Sodium 136 mmol/L (137-145)
[2022-05-12 12:30] LABS: Hematocrit 27.7 % (37.0-47.0); Hemoglobin 8.1 g/dL (12.0-15.0); Mean Corpuscular HGB Conc 29.2 g/dl (32-36); Mean Corpuscular Volume 92.3 fl (80-100); Mean Platelet Volume 11.4 fl (7.4-10.4); Platelet Count Result 509 k/mm3 (150-375); Red Cell Distribution Width 23.5 % (11.5-14.5); White Blood Count 21.8 K/mm3 (4.5-10.0)
--- NOTE | 2022-05-12 18:59 | PC.NURSE ---
This patient, José Miguel Chan, was received from [[id number] ] on 05/12/22 at 1859. Patient/family oriented to unit policies and routines
[2022-05-13] VITALS (9 sets, daily range): BP systolic 143–151; BP diastolic 54–69; PULSE 60–77; RESP 16; TEMP 36.4–36.7; O2SAT 95–96
[2022-05-13] MEDS: LEVOTHYROXINE SODIUM 50 MCG TABLET PO (06:30)
[2022-05-13] MEDS: FUROSEMIDE 40 MG TABLET PO (08:40)
[2022-05-13] MEDS: PYRIDOXINE HCL 50 MG TABLET 200 MG PO (08:40)
[2022-05-13] MEDS: PANTOPRAZOLE 40 MG TABLET PO (08:40)
[2022-05-13] MEDS: GABAPENTIN 300 MG CAPSULE PO ×3 (08:40→16:41)
[2022-05-13] MEDS: LORATADINE 10 MG TABLET PO (08:40)
[2022-05-13] MEDS: cefTRIAXone 2 GM in SODIUM CHLORIDE 0.9% IV 100 ML 200 ML IVPB (12:42)
--- NOTE | 2022-05-13 15:15 | PM.IMPN ---
Progress Note: A&P Assessment and Plan (1) Anemia: Code(s): D64.9 - Anemia, unspecified Status: Acute Assessment and Plan: -the patient is seen by Dr. Lisa for [place] dysplastic syndrome. According to the notes she has low-grade MDS with refractory anemia. -the patient has multiple antibodies and may take some time to find her blood type -she has had a history of having a hemolytic reaction to blood transfusion in the past. - Reportedly IV fluids were not initiated by nursing staff due to the patient being on Lasix. discuss starting IV fluids with the nursing staff and increase the fluid rate. due to her transfusion reaction -her vital signs are Currently stable . patient had a transfusion reaction this morning. She was administered a bolus of IV fluids, Pepcid, and epinephrine with improvement. Labs were obtained for possible hemolytic reaction -- resolved 05/13/2022 interval history: patient with anemia secondary to myelodysplastic syndrome patient was transfused 1 unit and had a reaction which is now resolved, her hemoglobin is stable however her white counts are significantly elevated from her baseline of 15,000, there is no obvious source of infection, will do the blood culture and started the patient on ceftriaxone azithromycin possible pneumonia, patient also complaint of right upper quadrant pain states he has history of gallstone her pain is persisting for last 5 days to further evaluate will do the abdominal ultrasound and further recommendation to follow, currently patient is sitting in the chair denies any fever or chills nausea or vomiting will continue to monitor (2) Diastolic congestive heart failure: Code(s): I50.30 - Unspecified diastolic (congestive) heart failure Status: Acute Assessment and Plan: -last echo noted was on 05/21/2021 which was read as the following 1. Complete two-dimensional, color flow and Doppler transthoracic echocardiogram is performed. ? 2. Left ventricular chamber dimension is normal. ? 3. Left ventricular systolic function is normal, estimated at 65-70%. ? 4. The left ventricular diastolic function is grade II diastolic dysfunction. ? 5. Left atrial chamber dimension is mildly enlarged. ? 6. There is no aortic valve stenosis. ? 7. There is mild mitral valve regurgitation. ? 8. There is mild tricuspid valve regurgitation. ? 9. Mild pulmonary hypertension, estimated pulmonary arterial systolic pressure is 44 mmHg. -continue with current treatment -patient had been on Lasix -- continue Lasix (3) Myelodysplastic syndrome: Code(s): D46.9 - Myelodysplastic syndrome, unspecified Status: Acute Assessment and Plan: -consult hematology oncology -the daughter has brought the jakafi with her for us to use since it may be non formulary. -she has chronic leukocytosis (4) Chronic kidney disease, stage 3: Qualifiers: Chronic kidney disease stage 3 subtype: stage 3b (GFR 30-44) Qualified Code(s): N18.32 - Chronic kidney disease, stage 3b Code(s): N18.30 - Chronic kidney disease, stage 3 unspecified Status: Acute Assessment and Plan: -patient's BUN is 33 today which is usually in the 40s and her creatinine is 1.1 which is improved from previous 1.3-1.5. Estimated GFR is 47 which looks like it has improved from previous. -continue to monitor BMP (5) Generalized weakness: Code(s): R53.1 - Weakness Status: Acute Assessment and Plan: -PT OT evaluation -most likely related to the anemia (6) Essential (primary) hypertension: Code(s): I10 - Essential (primary) hypertension Status: Acute Assessment and Plan: -continue with home dose of Lasix -the patient stated that she had been on blood pressure medicines but is no longer on blood pressure pills. (7) Hypothyroidism: Code(s): E03.9 - Hypothyroidism, unspecified Status: Acute Assessment and Plan: -check thyroi
[2022-05-14] VITALS (9 sets, daily range): BP systolic 132–145; BP diastolic 50–58; PULSE 62–81; RESP 16; TEMP 36.2–36.7; O2SAT 95–98
[2022-05-14] MEDS: LEVOTHYROXINE SODIUM 50 MCG TABLET PO (05:52)
[2022-05-14 06:21] LABS: Hemoglobin 7.7 g/dL (12.0-15.0); Mean Corpuscular HGB Conc 28.5 g/dl (32-36); Mean Corpuscular Hemoglobin 27.2 pg (26-34); Mean Corpuscular Volume 95.4 fl (80-100); Mean Platelet Volume 11.6 fl (7.4-10.4); Platelet Count Result 547 k/mm3 (150-375); Red Blood Count 2.83 M/mm3 (4.2-5.4); Red Cell Distribution Width 23.6 % (11.5-14.5); White Blood Count 20.1 K/mm3 (4.5-10.0)
[2022-05-14 06:40] LABS: Anion Gap 12 mmol/L (8-16); Blood Urea Nitrogen 35 mg/dL (7-17); Calcium 8.3 mg/dL (8.4-10.2); Carbon Dioxide 21 mmol/L (22-30); Chloride 103 mmol/L (98-107); Estimated CRCL calculation 25 ml/min; Estimated Glomerular Filt Rate 33; Glucose 95 mg/dL (65-110); Potassium 4.4 mmol/L (3.4-5.0); Sodium 136 mmol/L (137-145)
[2022-05-14 07:56] LABS: Band Neutrophils Percent 24 % (0-6); Basophils Percent Manual 1 % (0-1); Eosinophils Percent Manual 2 % (0-4); Metamyelocytes Percent 4 %; Monocytes Absolute Manual 2.81 K/mm3 (0.1-0.90); Monocytes Percent Manual 14 % (3-9); Myelocytes Percent 1 %; Neutrophils Absolute Manual 13.86 K/mm3 (1.7-7.2); Neutrophils Percent Manual 45 % (46-73); Platelet Estimate Increased (Adequate); Total Cells Counted 100
[2022-05-14 07:57] LABS: Anisocytosis 1+ (NORMAL); Large Platelets Present
[2022-05-14 07:58] LABS: Poikilocytosis 1+ (NORMAL)
[2022-05-14 07:59] LABS: Ovalocytes 1+ (NORMAL); Tear Drop Cells 1+ (NORMAL)
--- NOTE | 2022-05-14 08:17 | PCPTNOTE ---
Pt has been discharged from skilled therapy services at this time as they have met all their therapy goals and are IND.
[2022-05-14] MEDS: PYRIDOXINE HCL 50 MG TABLET 200 MG PO (08:19)
[2022-05-14] MEDS: FUROSEMIDE 40 MG TABLET PO (08:19)
[2022-05-14] MEDS: GABAPENTIN 300 MG CAPSULE PO ×3 (08:19→16:57)
[2022-05-14] MEDS: PANTOPRAZOLE 40 MG TABLET PO (08:19)
[2022-05-14] MEDS: LORATADINE 10 MG TABLET PO (08:19)
--- NOTE | 2022-05-14 10:49 | PM.IMPN ---
Progress Note: A&P Assessment and Plan (1) Anemia: Code(s): D64.9 - Anemia, unspecified Status: Acute Assessment and Plan: -the patient is seen by Dr. Lisa for [place] dysplastic syndrome. According to the notes she has low-grade MDS with refractory anemia. -the patient has multiple antibodies and may take some time to find her blood type -she has had a history of having a hemolytic reaction to blood transfusion in the past. - Reportedly IV fluids were not initiated by nursing staff due to the patient being on Lasix. discuss starting IV fluids with the nursing staff and increase the fluid rate. due to her transfusion reaction -her vital signs are Currently stable . patient had a transfusion reaction this morning. She was administered a bolus of IV fluids, Pepcid, and epinephrine with improvement. Labs were obtained for possible hemolytic reaction -- resolved 05/13/2022 interval history: patient with anemia secondary to myelodysplastic syndrome patient was transfused 1 unit and had a reaction which is now resolved, her hemoglobin is stable however her white counts are significantly elevated from her baseline of 15,000, there is no obvious source of infection, will do the blood culture and started the patient on ceftriaxone azithromycin possible pneumonia, patient also complaint of right upper quadrant pain states he has history of gallstone her pain is persisting for last 5 days to further evaluate will do the abdominal ultrasound and further recommendation to follow, currently patient is sitting in the chair denies any fever or chills nausea or vomiting will continue to monitor. 05/14/2022 interval history: patient with anemia secondary to myelodysplastic syndrome patient was transfused 1 unit and had a reaction which is now resolved, her hemoglobin is stable however her white counts are significantly elevated from her baseline of 15,000, there is no obvious source of infection, blood culture so far not growth and started the patient on ceftriaxone azithromycin possible pneumonia, patient also complaint of right upper quadrant pain stated she has history of gallstone her pain is persisting for last 5 days to further evaluate abdominal ultrasound was done it showed gallbladder sludge but no acute cholecystitis, currently patient is sitting in the chair denies any fever or chills nausea or vomiting, will continue to monitor until Monday if there is blood culture growth mostly her leukocytosis is due reaction to blood transfusion. (2) Diastolic congestive heart failure: Code(s): I50.30 - Unspecified diastolic (congestive) heart failure Status: Acute Assessment and Plan: -last echo noted was on 05/21/2021 which was read as the following 1. Complete two-dimensional, color flow and Doppler transthoracic echocardiogram is performed. ? 2. Left ventricular chamber dimension is normal. ? 3. Left ventricular systolic function is normal, estimated at 65-70%. ? 4. The left ventricular diastolic function is grade II diastolic dysfunction. ? 5. Left atrial chamber dimension is mildly enlarged. ? 6. There is no aortic valve stenosis. ? 7. There is mild mitral valve regurgitation. ? 8. There is mild tricuspid valve regurgitation. ? 9. Mild pulmonary hypertension, estimated pulmonary arterial systolic pressure is 44 mmHg. -continue with current treatment -patient had been on Lasix -- continue Lasix (3) Myelodysplastic syndrome: Code(s): D46.9 - Myelodysplastic syndrome, unspecified Status: Acute Assessment and Plan: -consult hematology oncology -the daughter has brought the jakafi with her for us to use since it may be non formulary. -she has chronic leukocytosis (4) Chronic kidney disease, stage 3: Qualifiers: Chronic kidney disease stage 3 subtype: stage 3b (GFR 30-44) Qualified Code(s): N18.32 - Chronic kidney disease, stage 3b Code(s): N18.30 - Chronic kidney disease, sta
[2022-05-14] MEDS: cefTRIAXone 2 GM in SODIUM CHLORIDE 0.9% IV 100 ML 200 ML IVPB (11:58)
[2022-05-15] VITALS (10 sets, daily range): BP systolic 126–136; BP diastolic 48–53; PULSE 64–74; RESP 15–18; TEMP 36–36.6; O2SAT 94–95
[2022-05-15 05:37] LABS: Anion Gap 10 mmol/L (8-16); Blood Urea Nitrogen 38 mg/dL (7-17); Calcium 8.4 mg/dL (8.4-10.2); Carbon Dioxide 22 mmol/L (22-30); Chloride 104 mmol/L (98-107); Estimated CRCL calculation 31 ml/min; Estimated Glomerular Filt Rate 43; Glucose 103 mg/dL (65-110); Potassium 4.3 mmol/L (3.4-5.0); Sodium 136 mmol/L (137-145)
[2022-05-15 05:39] LABS: Hematocrit 26.3 % (37.0-47.0); Hemoglobin 7.5 g/dL (12.0-15.0); Mean Corpuscular HGB Conc 28.5 g/dl (32-36); Mean Corpuscular Hemoglobin 27.3 pg (26-34); Mean Corpuscular Volume 95.6 fl (80-100); Mean Platelet Volume 10.7 fl (7.4-10.4); Platelet Count Result 466 k/mm3 (150-375); Red Blood Count 2.75 M/mm3 (4.2-5.4); Red Cell Distribution Width 23.2 % (11.5-14.5); White Blood Count 17.5 K/mm3 (4.5-10.0)
[2022-05-15] MEDS: LEVOTHYROXINE SODIUM 50 MCG TABLET PO (05:43)
[2022-05-15 07:26] LABS: Band Neutrophils Percent 15 % (0-6); Eosinophils Absolute Manual 0.35 K/mm3 (0.02-0.5); Eosinophils Percent Manual 2 % (0-4); Lymphocytes Absolute Manual 1.92 K/mm3 (1.1-4.5); Metamyelocytes Percent 8 %; Monocytes Percent Manual 12 % (3-9); Myelocytes Percent 2 %; Neutrophils Absolute Manual 11.37 K/mm3 (1.7-7.2); Neutrophils Percent Manual 50 % (46-73); Nucleated Red Blood Cells 2 %; Total Cells Counted 100
[2022-05-15 07:27] LABS: Platelet Estimate Increased (Adequate)
[2022-05-15 07:28] LABS: Poikilocytosis 1+ (NORMAL); Spherocytes 1+ (NORMAL)
[2022-05-15] MEDS: PYRIDOXINE HCL 50 MG TABLET 200 MG PO (08:36)
[2022-05-15] MEDS: FUROSEMIDE 40 MG TABLET PO (08:36)
[2022-05-15] MEDS: LORATADINE 10 MG TABLET PO (08:36)
[2022-05-15] MEDS: PANTOPRAZOLE 40 MG TABLET PO (08:36)
[2022-05-15] MEDS: GABAPENTIN 300 MG CAPSULE PO ×3 (08:36→16:30)
--- NOTE | 2022-05-15 10:47 | PM.IMPN ---
Progress Note: A&P Assessment and Plan (1) Anemia: Code(s): D64.9 - Anemia, unspecified Status: Acute Assessment and Plan: -the patient is seen by Dr. Lisa for [place] dysplastic syndrome. According to the notes she has low-grade MDS with refractory anemia. -the patient has multiple antibodies and may take some time to find her blood type -she has had a history of having a hemolytic reaction to blood transfusion in the past. - Reportedly IV fluids were not initiated by nursing staff due to the patient being on Lasix. discuss starting IV fluids with the nursing staff and increase the fluid rate. due to her transfusion reaction -her vital signs are Currently stable . patient had a transfusion reaction this morning. She was administered a bolus of IV fluids, Pepcid, and epinephrine with improvement. Labs were obtained for possible hemolytic reaction -- resolved 05/13/2022 interval history: patient with anemia secondary to myelodysplastic syndrome patient was transfused 1 unit and had a reaction which is now resolved, her hemoglobin is stable however her white counts are significantly elevated from her baseline of 15,000, there is no obvious source of infection, will do the blood culture and started the patient on ceftriaxone azithromycin possible pneumonia, patient also complaint of right upper quadrant pain states he has history of gallstone her pain is persisting for last 5 days to further evaluate will do the abdominal ultrasound and further recommendation to follow, currently patient is sitting in the chair denies any fever or chills nausea or vomiting will continue to monitor. 05/14/2022 interval history: patient with anemia secondary to myelodysplastic syndrome patient was transfused 1 unit and had a reaction which is now resolved, her hemoglobin is stable however her white counts are significantly elevated from her baseline of 15,000, there is no obvious source of infection, blood culture so far not growth and started the patient on ceftriaxone azithromycin possible pneumonia, patient also complaint of right upper quadrant pain stated she has history of gallstone her pain is persisting for last 5 days to further evaluate abdominal ultrasound was done it showed gallbladder sludge but no acute cholecystitis, currently patient is sitting in the chair denies any fever or chills nausea or vomiting, will continue to monitor until Monday if there is blood culture growth mostly her leukocytosis is due reaction to blood transfusion. 05/15/2022 interval history: patient with anemia secondary to myelodysplastic syndrome patient was transfused 1 unit and had a reaction which is now resolved, her hemoglobin is slowly trending down, however her white counts were significantly elevated from her baseline of 15,000, now trending down, there is no obvious source of infection, blood culture so far not growth and started the patient on ceftriaxone azithromycin possible pneumonia, patient has no respiratory complaints, patient also complaint of right upper quadrant pain stated she has history of gallstone her pain was persisting for last 5 days to further evaluate abdominal ultrasound was done it showed gallbladder sludge but no acute cholecystitis, currently patient is sitting in the chair denies any fever or chills nausea or vomiting, will continue to monitor until Monday if there is blood culture growth mostly her leukocytosis is due reaction to blood transfusion and will discharge. (2) Diastolic congestive heart failure: Code(s): I50.30 - Unspecified diastolic (congestive) heart failure Status: Acute Assessment and Plan: -last echo noted was on 05/21/2021 which was read as the following 1. Complete two-dimensional, color flow and Doppler transthoracic echocardiogram is performed. ? 2. Left ventricular chamber dimension is normal. ? 3. Left ventricular systolic function is normal, estimated at 65-70%. ? 4. The left ventricul
[2022-05-15] MEDS: cefTRIAXone 2 GM in SODIUM CHLORIDE 0.9% IV 100 ML 200 ML IVPB (12:07)
[2022-05-16] VITALS (10 sets, daily range): BP systolic 121–141; BP diastolic 48–54; PULSE 61–67; RESP 16–20; TEMP 35.6–36.7; O2SAT 92–95
[2022-05-16 04:58] LABS: Haptoglobin 82 mg/dL (43-212)
[2022-05-16 05:26] LABS: Hematocrit 25.2 % (37.0-47.0); Hemoglobin 7.2 g/dL (12.0-15.0); Mean Corpuscular HGB Conc 28.6 g/dl (32-36); Mean Corpuscular Hemoglobin 27.4 pg (26-34); Mean Corpuscular Volume 95.8 fl (80-100); Mean Platelet Volume 11.4 fl (7.4-10.4); Platelet Count Result 488 k/mm3 (150-375); Red Blood Count 2.63 M/mm3 (4.2-5.4); White Blood Count 18.5 K/mm3 (4.5-10.0)
[2022-05-16 05:33] LABS: Anion Gap 11 mmol/L (8-16); Blood Urea Nitrogen 40 mg/dL (7-17); Calcium 8.2 mg/dL (8.4-10.2); Carbon Dioxide 23 mmol/L (22-30); Chloride 105 mmol/L (98-107); Estimated CRCL calculation 26 ml/min; Estimated Glomerular Filt Rate 36; Glucose 101 mg/dL (65-110); Potassium 4.2 mmol/L (3.4-5.0); Sodium 139 mmol/L (137-145)
[2022-05-16] MEDS: LEVOTHYROXINE SODIUM 50 MCG TABLET PO (06:07)
[2022-05-16 06:29] LABS: Band Neutrophils Percent 16 % (0-6); Eosinophils Absolute Manual 0.37 K/mm3 (0.02-0.5); Eosinophils Percent Manual 2 % (0-4); Lymphocytes Absolute Manual 1.48 K/mm3 (1.1-4.5); Metamyelocytes Percent 5 %; Monocytes Absolute Manual 1.66 K/mm3 (0.1-0.90); Monocytes Percent Manual 9 % (3-9); Neutrophils Absolute Manual 14.06 K/mm3 (1.7-7.2); Neutrophils Percent Manual 60 % (46-73); Nucleated Red Blood Cells 3 %; Total Cells Counted 100
[2022-05-16 06:32] LABS: Ovalocytes 1+ (NORMAL)
[2022-05-16] MEDS: PANTOPRAZOLE 40 MG TABLET PO (08:27)
[2022-05-16] MEDS: FUROSEMIDE 40 MG TABLET PO (08:27)
[2022-05-16] MEDS: PYRIDOXINE HCL 50 MG TABLET 200 MG PO (08:27)
[2022-05-16] MEDS: GABAPENTIN 300 MG CAPSULE PO ×3 (08:27→17:11)
[2022-05-16] MEDS: LORATADINE 10 MG TABLET PO (08:27)
--- NOTE | 2022-05-16 10:22 | PCOTNOTE ---
Patient not seen for OT. Patient refused secondary to needing another blood transfusion. Will continue plan of care as appropriate.
[2022-05-16] MEDS: cefTRIAXone 2 GM in SODIUM CHLORIDE 0.9% IV 100 ML 200 ML IVPB (11:01)
--- NOTE | 2022-05-16 11:23 | PM.IMPN ---
Progress Note: A&P Assessment and Plan (1) Anemia: Code(s): D64.9 - Anemia, unspecified Status: Acute Assessment and Plan: -the patient is seen by Dr. Lisa for Myelodysplastic syndrome. According to the notes she has low-grade MDS with refractory anemia. 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 -she has had a history of having a hemolytic reaction to blood transfusion in the past. - Pt's Hgb has continued to decline over the past few days. She will require another transfusion, and given that it will take some time for patient's blood to be located is ordered for today. I did speak with Oncology office today advised him of my concern for the potential need of steroids prior to transfusion. According to Dr. Lopez's office the patient may only have dexamethasone or methylprednisolone as pretreatment. This is secondary to the current chemotherapeutic agent she is being Jakafi. -await Oncology recommendations and orders. -nurse instructed not to administer transfusion today without 1st checking with hospitalist. Patient will also require Benadryl as pre-treatment. (2) Diastolic congestive heart failure: Code(s): I50.30 - Unspecified diastolic (congestive) heart failure Status: Acute Assessment and Plan: -patient's last echocardiogram is from November 2021 demonstrated normal left ventricular size with function with ejection fraction 50-55%. Ventricular diastolic function is present with moderate pulmonary hypertension and mild aortic regurgitation. No aortic valve stenosis is identified. -continue home dose of Lasix. (3) Myelodysplastic syndrome: Code(s): D46.9 - Myelodysplastic syndrome, unspecified Status: Acute Assessment and Plan: -consult hematology oncology, appreciate continued recommendations in the setting the potential need of repeat transfusion. -the daughter has brought the jakafi with her for us to use since it may be non formulary. -she has chronic leukocytosis (4) Chronic kidney disease, stage 3: Qualifiers: Chronic kidney disease stage 3 subtype: stage 3b (GFR 30-44) Qualified Code(s): N18.32 - Chronic kidney disease, stage 3b Code(s): N18.30 - Chronic kidney disease, stage 3 unspecified Status: Acute Assessment and Plan: -patient's BUN is 40 today which is at her baseline and her creatinine is 1.4. We will continue to monitor renal function. (5) Generalized weakness: Code(s): R53.1 - Weakness Status: Acute Assessment and Plan: -PT OT evaluation -most likely related to the anemia (6) Essential (primary) hypertension: Code(s): I10 - Essential (primary) hypertension Status: Acute Assessment and Plan: -continue with home dose of Lasix -stable blood pressure at 120s to 140s systolic over 50s diastolic. -continue to monitor. (7) Hypothyroidism: Code(s): E03.9 - Hypothyroidism, unspecified Status: Acute Assessment and Plan: -TSH level 2.4. -continue with levothyroxine (8) History of transfusion reaction: Code(s): Z87.898 - Personal history of other specified conditions Status: Acute Assessment and Plan: -the patient will need to be screened carefully and may need to get her blood from outside sources. -the patient had a hemolytic reaction to blood transfusion in the past. -patient requires premedication with Benadryl and either dexamethasone or methylprednisolone as per Oncology. -nurse advised not to administer blood until speaking with hospitalist to ensure both of these medications are ordered prior to transfusion. 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 Take extra caution in ordering preventive medications given her history of reaction. (9) Abnormal chest x-ray: Code(s): R93.89 - Abnormal findings on diagnostic imaging of other specifie
--- NOTE | 2022-05-16 13:48 | PC.NURSE ---
Patients IV went bad, called Sole (JUAN) to inform, she stated to skip this dose. Patient still oesn't have an IV, waiting on Melissa to insert. Pharmacy rescheduled Azithromycin dose for 1600. Sole MARTINEZ was agreeable.
--- NOTE | 2022-05-16 18:35 | PC.NURSE ---
Per Dr Solorio, as patient is stable wait on transfusing until tomorrow when Sole can see her (she was awaiting orders from Oncology concerning steriod to give because of reaction patient has with blood transfusion)
[2022-05-17] VITALS (10 sets, daily range): BP systolic 128–141; BP diastolic 45–57; PULSE 54–72; RESP 16–20; TEMP 36.1–36.9; O2SAT 93–96
[2022-05-17] MEDS: LEVOTHYROXINE SODIUM 50 MCG TABLET PO (05:45)
[2022-05-17 06:11] LABS: Hematocrit 25.1 % (37.0-47.0); Hemoglobin 7.2 g/dL (12.0-15.0); Mean Corpuscular HGB Conc 28.7 g/dl (32-36); Mean Corpuscular Hemoglobin 27.5 pg (26-34); Mean Corpuscular Volume 95.8 fl (80-100); Mean Platelet Volume 11.3 fl (7.4-10.4); Platelet Count Result 505 k/mm3 (150-375); Red Blood Count 2.62 M/mm3 (4.2-5.4); Red Cell Distribution Width 22.8 % (11.5-14.5); White Blood Count 17.8 K/mm3 (4.5-10.0)
[2022-05-17 06:23] LABS: Anion Gap 9 mmol/L (8-16); Blood Urea Nitrogen 38 mg/dL (7-17); Calcium 8.1 mg/dL (8.4-10.2); Carbon Dioxide 24 mmol/L (22-30); Chloride 106 mmol/L (98-107); Estimated CRCL calculation 28 ml/min; Estimated Glomerular Filt Rate 39; Glucose 103 mg/dL (65-110); Potassium 4.4 mmol/L (3.4-5.0); Sodium 139 mmol/L (137-145)
[2022-05-17 08:27] LABS: Band Neutrophils Percent 15 % (0-6); Eosinophils Absolute Manual 0.71 K/mm3 (0.02-0.5); Eosinophils Percent Manual 4 % (0-4); Lymphocytes Absolute Manual 2.31 K/mm3 (1.1-4.5); Metamyelocytes Percent 4 %; Monocytes Absolute Manual 0.71 K/mm3 (0.1-0.90); Monocytes Percent Manual 4 % (3-9); Neutrophils Absolute Manual 13.35 K/mm3 (1.7-7.2); Neutrophils Percent Manual 60 % (46-73); Nucleated Red Blood Cells 2 %; Total Cells Counted 100
[2022-05-17 08:28] LABS: Anisocytosis 1+ (NORMAL); Ovalocytes 1+ (NORMAL); Platelet Estimate Increased (Adequate)
--- NOTE | 2022-05-17 08:40 | PCOTNOTE ---
Patient met goals with OT, demonstrating independence with functional ADLs and activities, no skilled OT indicated at this time will discharge from OT.
[2022-05-17] MEDS: PYRIDOXINE HCL 50 MG TABLET 200 MG PO (09:31)
[2022-05-17] MEDS: PANTOPRAZOLE 40 MG TABLET PO (09:31)
[2022-05-17] MEDS: GABAPENTIN 300 MG CAPSULE PO ×3 (09:31→17:15)
[2022-05-17] MEDS: LORATADINE 10 MG TABLET PO (09:31)
[2022-05-17] MEDS: FUROSEMIDE 40 MG TABLET PO (09:31)
--- NOTE | 2022-05-17 10:38 | PM.IMPN ---
Progress Note: A&P Assessment and Plan (1) Anemia: Code(s): D64.9 - Anemia, unspecified Status: Acute Assessment and Plan: -the patient is seen by Dr. Lisa for Myelodysplastic syndrome. According to the notes she has low-grade MDS with refractory anemia. 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 -she has had a history of having a hemolytic reaction to blood transfusion in the past. - Pt's Hgb has continued to decline over the past few days. She will require another transfusion, and given that it will take some time for patient's blood to be located is ordered for today. I did speak with Oncology office today advised him of my concern for the potential need of steroids prior to transfusion. According to Dr. Lopez's office the patient may only have dexamethasone or methylprednisolone as pretreatment. This is secondary to the current chemotherapeutic agent she is being Jakafi. -await Oncology recommendations and orders. -nurse instructed not to administer transfusion today without 1st checking with hospitalist. Patient will also require Benadryl as pre-treatment. 05/17/22: We are still awaiting Oncological consult from our airborne electronics analyst Oncologist. RN is instructed to inquire about when they will consult again. - Hgb this AM is stable in a 24 hour period at 7.2. Will recheck again today at 1300. - We have not yet found blood available for transfusion for this patient. - Pt is stable and feels she is at her baseline overall. (2) Diastolic congestive heart failure: Code(s): I50.30 - Unspecified diastolic (congestive) heart failure Status: Chronic Assessment and Plan: -patient's last echocardiogram is from November 2021 demonstrated normal left ventricular size with function with ejection fraction 50-55%. Ventricular diastolic function is present with moderate pulmonary hypertension and mild aortic regurgitation. No aortic valve stenosis is identified. -continue home dose of Lasix. (3) Myelodysplastic syndrome: Code(s): D46.9 - Myelodysplastic syndrome, unspecified Status: Acute Assessment and Plan: -consult hematology oncology, appreciate continued recommendations in the setting the potential need of repeat transfusion. -the daughter has brought the jakafi with her for us to use since it may be non formulary. -she has chronic leukocytosis and her baseline WBC count is 17.0-18.0. She remains at her baseline of 17.8 today without any signs or symptoms of acute infection. (4) Chronic kidney disease, stage 3: Qualifiers: Chronic kidney disease stage 3 subtype: stage 3b (GFR 30-44) Qualified Code(s): N18.32 - Chronic kidney disease, stage 3b Code(s): N18.30 - Chronic kidney disease, stage 3 unspecified Status: Acute Assessment and Plan: -patient's BUN is 38 today which is at her baseline and her creatinine is 1.3. We will continue to monitor renal function. (5) Generalized weakness: Code(s): R53.1 - Weakness Status: Acute Assessment and Plan: -PT OT evaluation -most likely related to the anemia - Pt. is improving and feels that she is at her baseline. (6) Essential (primary) hypertension: Code(s): I10 - Essential (primary) hypertension Status: Acute Assessment and Plan: -continue with home dose of Lasix -stable blood pressure at 120s to 140s systolic over 50s diastolic. -continue to monitor. (7) Hypothyroidism: Code(s): E03.9 - Hypothyroidism, unspecified Status: Acute Assessment and Plan: -TSH level 2.4. -continue with levothyroxine (8) History of transfusion reaction: Code(s): Z87.898 - Personal history of other specified conditions Status: Acute Assessment and Plan: -the patient will need to be screened carefully and may need to get her blood from outside sources. -the patient
[2022-05-17] MEDS: cefTRIAXone 2 GM in SODIUM CHLORIDE 0.9% IV 100 ML 200 ML IVPB (11:36)
[2022-05-17 13:09] LABS: Hematocrit 27.1 % (37.0-47.0); Mean Corpuscular HGB Conc 29.5 g/dl (32-36); Mean Corpuscular Hemoglobin 27.6 pg (26-34); Mean Corpuscular Volume 93.4 fl (80-100); Mean Platelet Volume 11.4 fl (7.4-10.4); Platelet Count Result 567 k/mm3 (150-375); Red Cell Distribution Width 23.3 % (11.5-14.5); White Blood Count 22.2 K/mm3 (4.5-10.0)
[2022-05-18] VITALS: PULSE 60
[2022-05-18 04:00] VITALS: PULSE 71
[2022-05-18 04:50] VITALS: BP 132/50; PULSE 62; RESP 18; TEMP 36.2; O2SAT 95
[2022-05-18 06:09] LABS: Hematocrit 24.2 % (37.0-47.0); Hemoglobin 7.1 g/dL (12.0-15.0); Mean Corpuscular HGB Conc 29.3 g/dl (32-36); Mean Corpuscular Hemoglobin 27.7 pg (26-34); Mean Corpuscular Volume 94.5 fl (80-100); Mean Platelet Volume 11.4 fl (7.4-10.4); Platelet Count Result 526 k/mm3 (150-375); Red Blood Count 2.56 M/mm3 (4.2-5.4); Red Cell Distribution Width 23.3 % (11.5-14.5); White Blood Count 18.4 K/mm3 (4.5-10.0)
[2022-05-18 06:16] LABS: Anion Gap 10 mmol/L (8-16); Blood Urea Nitrogen 42 mg/dL (7-17); Calcium 8.6 mg/dL (8.4-10.2); Carbon Dioxide 24 mmol/L (22-30); Chloride 103 mmol/L (98-107); Estimated CRCL calculation 31 ml/min; Estimated Glomerular Filt Rate 43; Glucose 103 mg/dL (65-110); Magnesium 2.3 mg/dL (1.6-2.3); Potassium 4.4 mmol/L (3.4-5.0); Sodium 137 mmol/L (137-145)
[2022-05-18] MEDS: LEVOTHYROXINE SODIUM 50 MCG TABLET PO (06:18)
[2022-05-18 07:10] LABS: Band Neutrophils Percent 26 % (0-6); Basophils Absolute Manual 0.36 K/mm3 (0.0-0.1); Basophils Percent Manual 2 % (0-1); Eosinophils Absolute Manual 0.55 K/mm3 (0.02-0.5); Eosinophils Percent Manual 3 % (0-4); Lymphocytes Absolute Manual 3.31 K/mm3 (1.1-4.5); Metamyelocytes Percent 7 %; Monocytes Absolute Manual 0.92 K/mm3 (0.1-0.90); Monocytes Percent Manual 5 % (3-9); Neutrophils Absolute Manual 11.96 K/mm3 (1.7-7.2); Neutrophils Percent Manual 39 % (46-73); Nucleated Red Blood Cells 1 %; Total Cells Counted 100
[2022-05-18 07:11] LABS: Anisocytosis 1+ (NORMAL); Ovalocytes 1+ (NORMAL); Platelet Estimate Increased (Adequate)
[2022-05-18 08:00] VITALS: PULSE 93
--- NOTE | 2022-05-18 08:13 | PCNWS ---
Weekly nutritional screen. Patient is tolerating current diet with adequate intake. No weight loss reported. No nutritional needs at this time.
[2022-05-18] MEDS: LORATADINE 10 MG TABLET PO (08:21)
[2022-05-18] MEDS: PYRIDOXINE HCL 50 MG TABLET 200 MG PO (08:21)
[2022-05-18] MEDS: FUROSEMIDE 40 MG TABLET PO (08:21)
[2022-05-18] MEDS: PANTOPRAZOLE 40 MG TABLET PO (08:21)
[2022-05-18] MEDS: GABAPENTIN 300 MG CAPSULE PO ×2 (08:21→12:23)
[2022-05-18 12:00] LABS: Hematocrit 27.1 % (37.0-47.0)
[2022-05-18] MEDS: cefTRIAXone 2 GM in SODIUM CHLORIDE 0.9% IV 100 ML 200 ML IVPB (12:23)
--- NOTE | 2022-05-18 12:27 | PM.DS ---
DS: Admitting Diagnosis Discharge Date 05/18/2022 Admitting Diagnosis Anemia Myelodysplastic disease Diastolic heart failure Chronic kidney disease stage 3 Generalized weakness Hypertension Hypothyroidism History of blood transfusion reaction DS: Discharge Diagnosis Discharge Diagnosis (1) Anemia: Code(s): D64.9 - Anemia, unspecified Status: Acute Assessment and Plan: -the patient is seen by Dr. Lisa for Myelodysplastic syndrome. According to the notes she has low-grade MDS with refractory anemia. 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 -she has had a history of having a hemolytic reaction to blood transfusion in the past. - Pt's Hgb has continued to decline over the past few days. She will require another transfusion, and given that it will take some time for patient's blood to be located is ordered for today. I did speak with Oncology office today advised him of my concern for the potential need of steroids prior to transfusion. According to Dr. Lopez's office the patient may only have dexamethasone or methylprednisolone as pretreatment. This is secondary to the current chemotherapeutic agent she is being Jakafi. -await Oncology recommendations and orders. -nurse instructed not to administer transfusion today without 1st checking with hospitalist. Patient will also require Benadryl as pre-treatment. 05/17/22: We are still awaiting Oncological consult from our visitor information assistant Oncologist. RN is instructed to inquire about when they will consult again. - Hgb this AM is stable in a 24 hour period at 7.2. Will recheck again today at 1300. - We have not yet found blood available for transfusion for this patient. - Pt is stable and feels she is at her baseline overall. 05/18/22: I spoke with Oncology last night after hours who advised that since patient's blood level had increased on its own without requiring transfusion they were okay with discharging at this time with further follow-up with patient's oncologist, Dr. Lopez. This morning patient's hemoglobin had decreased slightly to 7.1. However on recheck it was 8.0. Patient does feel that she is at her baseline level of energy and has been up to the restroom and showered and has no further acute complaints. She will be stable for discharge today with recheck of hemoglobin in 2 days and follow-up with that doctor Stephanie as soon as possible. (2) Diastolic congestive heart failure: Code(s): I50.30 - Unspecified diastolic (congestive) heart failure Status: Chronic Assessment and Plan: -patient's last echocardiogram is from November 2021 demonstrated normal left ventricular size with function with ejection fraction 50-55%. Ventricular diastolic function is present with moderate pulmonary hypertension and mild aortic regurgitation. No aortic valve stenosis is identified. -continue home dose of Lasix upon discharge. (3) Myelodysplastic syndrome: Code(s): D46.9 - Myelodysplastic syndrome, unspecified Status: Acute Assessment and Plan: -consult hematology oncology, appreciate continued recommendations in the setting the potential need of repeat transfusion. -the daughter has brought the jakafi with her for us to use since it may be non formulary. -she has chronic leukocytosis and her baseline WBC count is 17.0-18.0. She remains at her baseline of 17.8 today without any signs or symptoms of acute infection. - 05/18/22: the patient's elevated white blood cell count yesterday of 22 decreased again today at 18.4. Patient's baseline white blood cell count is 17 to 18. She remains without any signs or symptoms of acute infection or bacteremia. Again after speaking with Oncology last evening patient is stable for discharge at this time with follow-up with her own oncologist. She will have blood work checked within 2 days. (4) Chronic kidney disease, stage 3:
== END 2022-05-18 14:00 | disposition home health service (06) | DRG 812 ==
LOC: ANHED 17:43 → ANH2MED 18:19 → ANHIMU 05-11 09:14 → ANH2MED 05-12 18:30
PROVIDERS: Family Medicine; Internal Medicine Hematology & Oncology; Nurse Practitioner; Nurse Practitioner Family; Admitting Provider Student in an Organized Health Care Education/Training Program; Emergency Provider Family Medicine; PCP Internal Medicine; Visit Provider Nurse Practitioner Adult Health
DX: D46.20 Refractory anemia with excess of blasts, unspecified (principal); I13.0 Hypertensive heart and chronic kidney disease with heart failure and stage 1 through stage 4 chronic kidney disease, or unspecified chronic kidney disease; I50.30 Unspecified diastolic (congestive) heart failure; T80.919A Hemolytic transfusion reaction, unspecified incompatibility, unspecified as acute or delayed, initial encounter; T45.8X5A Adverse effect of other primarily systemic and hematological agents, initial encounter; D47.1 Chronic myeloproliferative disease; N18.30 Chronic kidney disease, stage 3 unspecified; E78.5 Hyperlipidemia, unspecified; E03.9 Hypothyroidism, unspecified; M19.90 Unspecified osteoarthritis, unspecified site; R10.11 Right upper quadrant pain; R50.84 Febrile nonhemolytic transfusion reaction; Z20.822 Contact with and (suspected) exposure to COVID-19; Z87.891 Personal history of nicotine dependence
CPT/HCPCS: 36415; 36430; 71045; 76705; 80048; 80053; 81001; 82607; 82728; 83010; 83540; 83550; 83605; 83615; 83735; 84443; 85014; 85018; 85025; 85027; 85046; 85380; 85384; 85610; 85730; 86850; 86860; 86870; 86880; 86900; 86901; 86902; 86922; 87040; 87086; 87088; 93005; 96372; 96374; 96375; 97110; 97161; 97165; 97530; 97535; 99285; A9270; C9803; G0378; J0171; J0456; J0696; J1200; J7030; J7050; J7060; P9016; U0003; U0005

== ENCOUNTER 2022-05-27 19:31 | Emergency (ER) | payer MEDICARE, MEDICAID, SELFPAY ==
[2022-05-27 20:17] VITALS: BP 125/50; PULSE 69; RESP 20; TEMP 36.2; O2SAT 97
== END 2022-05-27 21:00 | disposition left against medical advice (07) ==
LOC: ANHED 21:23
PROVIDERS: PCP Internal Medicine
DX: R53.1 Weakness (principal)
CPT/HCPCS: 99199

== ENCOUNTER 2022-05-28 09:48 | Observation (INO) | payer MEDICARE, MEDICAID, SELFPAY ==
[2022-05-28] VITALS (18 sets, daily range): BP systolic 121–156; BP diastolic 53–84; PULSE 68–95; RESP 16–26; TEMP 36.1–37.1; O2SAT 91–100; BMI 26.6
--- NOTE | ~2022-05-28 | XR_ITS ---
EXAMINATION: XR chest 2V DATE: 05/28/2022 11:29 INDICATION: Shortness of breath TECHNIQUE: AP and lateral views of the chest are obtained. COMPARISON: 05/13/2022 FINDINGS: There are airspace opacities of the mid and lower lung zones. No pleural effusion or pneumo thorax. Cardiomegaly is noted. There is moderate thoracic spondylosis. IMPRESSION: 1. Minimal opacities of the mid and lower lung zones, consistent with atelectasis versus pneumonia. Reviewed, dictated and finalized at location A. IMPRESSION: 1. Minimal opacities of the mid and lower lung zones, consistent with atelectas is versus pneumonia.
--- NOTE | 2022-05-28 10:01 | ED.RECABL ---
HPI - Recheck/Abnormal Lab/Rx General Chief Complaint: Recheck/Abnormal Lab/Rx Stated Complaint: ABN Labs Time Seen by Provider: 05/28/22 09:51 History of Present Illness HPI narrative: Patient is 87-year-old female with a history of myelodysplastic syndrome, on Jakafi, requiring frequent blood transfusions, CHF, who presents to the emergency department at recommendation of her oncologist for blood transfusion given hemoglobin of 6.8 yesterday. Patient states that she has been feeling weak and fatigued in addition to somewhat short of breath. She presented to the emergency department yesterday but left due to long wait times. She does note that she has frequent transfusion reactions, was told she should receive steroids and benadryl prior to treatment. Related Data Home Medications Medication Instructions Recorded Confirmed gabapentin 300 mg capsule 300 mg PO TID 04/26/21 05/28/22 (Neurontin) pantoprazole 40 mg tablet,delayed 40 mg PO QAM 04/26/21 05/28/22 release (Protonix) pyridoxine (vitamin B6) 250 mg 200 mg PO DAILY 09/20/21 05/28/22 tablet (Vitamin B-6) aspirin 81 mg tablet,delayed 81 mg PO QAM 05/10/22 05/28/22 release (Adult Low Dose Aspirin) furosemide 40 mg tablet (Lasix) 40 mg PO EVERY OTHER DAY 05/10/22 05/28/22 levothyroxine 50 mcg tablet 50 mcg PO DAILY 05/10/22 05/28/22 (Synthroid) furosemide 20 mg tablet 20 mg PO EVERY OTHER DAY 05/28/22 05/28/22 Allergies Allergy/AdvReac Type Severity Reaction Status Date / Time hydrocodone Allergy Severe vomiting Verified 05/27/22 20:21 codeine Allergy Mild Hives Verified 05/27/22 20:21 Sulfa (Sulfonamide Allergy Mild Rash Verified 05/27/22 20:21 Antibiotics) meloxicam Allergy Unknown Difficulty Verified 05/27/22 20:21 Breathing naproxen Allergy Unknown Other Verified 05/27/22 20:21 MUSCLE RELAXERS Allergy Mild rapid Uncoded 05/27/22 20:21 heart beat BIG E BLOOD ANTIBODY Allergy Unknown Anaphylactic Uncoded 05/27/22 20:21 Shock Review of Systems Review of Systems: Gen: Reports fatigue. Denies fevers or chills Eyes: Denies eye pain or visual change ENT: Denies congestion Respiratory: Reports shortness of breath. Denies cough CV: Denies chest pain or palpitations GI: Denies abdominal pain nausea, emesis or diarrhea denies burning, urgency, frequency or hematuria Musculoskeletal: Denies back pain or muscle pain Neuro: Denies numbness, tingling, weakness or focal weakness Skin: Denies rash Except as documented, all other systems reviewed and negative [facility] Past Medical History Medical History (Updated 05/28/22 @ 17:59 by Debbie Roberts PA-C) Acute respiratory failure with hypoxia Arthritis Chronic anemia She has required intermittent transfusions over the years and it is noted that she had an acute hemolytic anemic transfusion reaction in April 2019. Chronic kidney disease, stage 3 Chronic myeloproliferative disorder Followed by Dr. Luiz Lopez. On Jakafi. COVID-19 (05/2021) Diastolic congestive heart failure Echocardiogram in November 2021 showed [id number] LVH, normal LV size, LV systolic function at lower limits of normal with an EF between 50 to 55%, segmental wall motion abnormalities with hypokinesis of the basal and mid inferior segments, diastolic dysfunction, and moderate pulmonary hypertension. 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 Followed by Dr. Lopez. 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 Monitored by Dr. Lopez. Surgical History Surgical History H/O hand surgery History of bunionectomy of both great toes History of carpal tunnel release History of cataract surgery History of hammertoe correction History of repair of right rotator cuff
[2022-05-28 10:15] LABS: Hematocrit 25.1 % (37.0-47.0); Hemoglobin 7.3 g/dL (12.0-15.0); Mean Corpuscular HGB Conc 29.1 g/dl (32-36); Mean Corpuscular Hemoglobin 27.2 pg (26-34); Mean Corpuscular Volume 93.7 fl (80-100); Mean Platelet Volume 11.9 fl (7.4-10.4); Platelet Count Result 368 k/mm3 (150-375); Red Blood Count 2.68 M/mm3 (4.2-5.4); Red Cell Distribution Width 23.4 % (11.5-14.5); White Blood Count 17.5 K/mm3 (4.5-10.0)
[2022-05-28 10:30] LABS: Alanine Aminotransferase 20 U/L (6-35); Albumin Level 4.3 g/dL (3.5-5.1); Alkaline Phosphatase 114 U/L (38-126); Anion Gap 11 mmol/L (8-16); Aspartate Amino Transferase 109 U/L (14-36); Bilirubin,Total 1.1 mg/dL (0.2-1.3); Blood Urea Nitrogen 27 mg/dL (7-17); Calcium 8.6 mg/dL (8.4-10.2); Carbon Dioxide 22 mmol/L (22-30); Chloride 104 mmol/L (98-107); Estimated CRCL calculation 27 ml/min; Estimated Glomerular Filt Rate 39; Glucose 99 mg/dL (65-110); Sodium 137 mmol/L (137-145)
[2022-05-28 10:42] LABS: Lactate Dehydrogenase 1196 U/L (120-246)
[2022-05-28 10:44] LABS: Anisocytosis 2+ (NORMAL); Band Neutrophils Percent 1 % (0-6); Eosinophils Absolute Manual 0.17 K/mm3 (0.02-0.5); Eosinophils Percent Manual 1 % (0-4); Metamyelocytes Percent 1 %; Monocytes Absolute Manual 1.75 K/mm3 (0.1-0.90); Monocytes Percent Manual 10 % (3-9); Neutrophils Percent Manual 67 % (46-73); Nucleated Red Blood Cells 3 %; Ovalocytes 1+ (NORMAL); Platelet Estimate Adequate (Adequate); Total Cells Counted 100
[2022-05-28 10:54] LABS: SARS-CoV-2 RNA PCR Negative
--- NOTE | 2022-05-28 11:04 | ECG_ITS ---
Measurements Intervals [place] Rate: 68 P: 71 PA: 176 QRS: -29 QRSD: 134 T: -4 QT: 446 QTc: 476 Interpretive Statements SINUS RHYTHM INTRAVENTRICULAR CONDUCTION DELAY [130+ ms QRS DURATION] VOLTAGE CRITERIA FOR LVH [MEETS CRITERIA IN ONE OF: R(aVL), S(V1), R(V5), R(V5/V6)+S(V1)] POSSIBLE LATERAL MYOCARDIAL INFARCTION , PROBABLY OLD [30 ms Q WAVE IN I/aVL/V5/V6] NONSPECIFIC T-WAVE ABNORMALITY ABNORMAL ECG Electronically Signed On 05-28-2022 17:22:20 CDT by Juni Sánchez M.D.
[2022-05-28 11:32] LABS: NT Pro B Type Natriuretic Pept 4770 pg/mL (5-100)
--- NOTE | 2022-05-28 13:15 | PM.IMHP ---
H&P: HPI History of Present Illness Date/Time: 05/28/22 13:15 Chief Complaint: abnormal labs Narrative: this is a 87-year-old female patient who has a history of myelodysplastic syndrome who had been on Jakafi and recently was taken off of it. Her H&H here today is 7.3 and 25.1. White count is noted to be 17.5. The patient has had multiple transfusions.( last admission was 05/10/2022). the patient sees Dr. Luna for her oncologist. Her in [place] who recommended that she go to the emergency room because she had a hemoglobin of 6.8 yesterday. The patient has been feeling weak and she is now on oxygen at 2 L per nasal cannula. The patient stated that she had an oxygen level of 91-92% per her pulse ox at home. The patient has had multiple allergic reactions to blood transfusions. Oncology recommended that the patient received Tylenol steroids and Benadryl prior to the next transfusion. The patient has multiple antibodies in her blood. She often times has a reaction. The patient is being admitted to inpatient status on the date of service of 05/28/2022. Review of Systems Review of Systems: See HPI All systems reviewed & are unremarkable except as noted in HPI and below Constitutional: Constitutional: Reports as per HPI and Reports no additional constitutional complaints Eyes: Eyes: Reports as per HPI and Reports no additional eye complaints ENT: Reports system reviewed and no additional complaints, except as documented and Reports Normal hearing present Cardiovascular: Cardiovascular: Reports no additional cardiovascular complaints Respiratory: Respiratory: Reports no additional respiratory complaints and Reports no additional respiratory complaints Gastrointestinal: Gastrointestinal: Reports as per HPI and Reports no additional gastrointestinal complaints Musculoskeletal: Musculoskeletal: Reports no additional musculoskeletal complaints Integumentary/Breasts: Skin/Breast: Reports system reviewed and no additional complaints, except as docu and Reports as per HPI Neurologic: Reports system reviewed and no additional complaints, except as documented, Reports as per HPI and Reports Normal hearing present Psychiatric: Psychiatric: Reports no additional psychiatric complaints and Reports as per HPI Endocrine: Endocrine: Reports no additional endocrine complaints Hematologic/Lymphatic: Hematologic/Lymphatic: Reports no additional hematologic/lymphatic complaints Allergic/Immunologic: Allergic/Immunologic: Reports no additional allergic/immunologic complaints [facility] Past Medical History Medical History (Updated 05/28/22 @ 14:02 by Lindsey Wislon NP) Acute respiratory failure with hypoxia Arthritis Chronic anemia She has required intermittent transfusions over the years and it is noted that she had an acute hemolytic anemic transfusion reaction in April 2019. Chronic kidney disease, stage 3 Chronic myeloproliferative disorder Followed by Dr. Luiz Lopez. On Jakafi. COVID-19 (05/2021) Diastolic congestive heart failure Echocardiogram in November 2021 showed [id number] LVH, normal LV size, LV systolic function at lower limits of normal with an EF between 50 to 55%, segmental wall motion abnormalities with hypokinesis of the basal and mid inferior segments, diastolic dysfunction, and moderate pulmonary hypertension. 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 Followed by Dr. Lopez. 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 Monitored by Dr. Lopez. Surgical History Surgical History H/O hand surgery History of bunionectomy of both great toes History of carpal tunnel release History of cataract surgery History of hammertoe correction History of repair of right ro
--- NOTE | 2022-05-28 14:56 | PC.NURSE ---
This patient, José Miguel Chan, was admitted to Medical Room 243-. Patient/family oriented to hospital policies and general routines including ID bracelet, bed and alarms, visiting hours, pain management, procedures, bathroom and other care routines, personal items, smoking policy, room service/diet, and visiting hours. Information on how to activate the Rapid Response Team has been discussed. Patient/Family are encouraged to report perceived risks to care and to ask questions if they do not understand what they are told or what they should do.
[2022-05-28] MEDS: diphenhydrAMINE HCl INJ 50 MG/ML VIAL 25 MG IV PUSH (19:58)
[2022-05-28] MEDS: GABAPENTIN 300 MG CAPSULE PO (20:07)
[2022-05-29 03:19] VITALS: BP 148/67; PULSE 66; RESP 17; TEMP 36; O2SAT 98
[2022-05-29 03:27] VITALS: TEMP 36.4
[2022-05-29 05:22] LABS: Lactic Acid Reflex 0.6 mmol/L (0.7-2.0)
[2022-05-29 05:27] LABS: Hematocrit 26.9 % (37.0-47.0); Mean Corpuscular HGB Conc 29.7 g/dl (32-36); Mean Corpuscular Volume 94.1 fl (80-100); Mean Platelet Volume 12.2 fl (7.4-10.4); Platelet Count Result 387 k/mm3 (150-375); Red Blood Count 2.86 M/mm3 (4.2-5.4); Red Cell Distribution Width 21.6 % (11.5-14.5); White Blood Count 24.2 K/mm3 (4.5-10.0)
[2022-05-29 05:28] LABS: Alanine Aminotransferase 16 U/L (6-35); Alkaline Phosphatase 108 U/L (38-126); Anion Gap 11 mmol/L (8-16); Aspartate Amino Transferase 53 U/L (14-36); Bilirubin,Total 0.9 mg/dL (0.2-1.3); Blood Urea Nitrogen 23 mg/dL (7-17); Calcium 8.1 mg/dL (8.4-10.2); Carbon Dioxide 20 mmol/L (22-30); Chloride 108 mmol/L (98-107); Estimated CRCL calculation 31 ml/min; Estimated Glomerular Filt Rate 53; Glucose 153 mg/dL (65-110); Magnesium 2.2 mg/dL (1.6-2.3); Potassium 4.7 mmol/L (3.4-5.0); Sodium 139 mmol/L (137-145)
[2022-05-29] MEDS: LEVOTHYROXINE SODIUM 50 MCG TABLET PO (05:53)
[2022-05-29 06:16] LABS: Band Neutrophils Percent 24 % (0-6); Eosinophils Absolute Manual 0.72 K/mm3 (0.02-0.5); Eosinophils Percent Manual 3 % (0-4); Lymphocytes Absolute Manual 1.45 K/mm3 (1.1-4.5); Metamyelocytes Percent 2 %; Monocytes Absolute Manual 2.17 K/mm3 (0.1-0.90); Monocytes Percent Manual 9 % (3-9); Myelocytes Percent 2 %; Neutrophils Absolute Manual 18.87 K/mm3 (1.7-7.2); Neutrophils Percent Manual 54 % (46-73); Nucleated Red Blood Cells 6 %; Total Cells Counted 100
[2022-05-29 06:19] LABS: Anisocytosis 2+ (NORMAL); Ovalocytes 1+ (NORMAL)
[2022-05-29 08:11] VITALS: O2SAT 98
[2022-05-29] MEDS: PANTOPRAZOLE 40 MG TABLET PO (08:31)
[2022-05-29] MEDS: GABAPENTIN 300 MG CAPSULE PO ×2 (08:31→12:10)
[2022-05-29] MEDS: FUROSEMIDE 40 MG TABLET PO (08:31)
[2022-05-29] MEDS: PYRIDOXINE HCL 50 MG TABLET 200 MG PO (08:31)
[2022-05-29 11:55] LABS: Hematocrit 30.1 % (37.0-47.0)
--- NOTE | 2022-05-29 13:36 | PM.DS ---
DS: Admitting Diagnosis Discharge Date 05/29/2022 Admitting Diagnosis Anemia DS: Discharge Diagnosis Discharge Diagnosis (1) Myelodysplastic syndrome: Code(s): D46.9 - Myelodysplastic syndrome, unspecified Status: Acute Assessment and Plan: Followed by oncologist, Dr. Lopez Presented with anemia, outpatient hemoglobin on labs was 6.8 Received 1 unit pRBC requiring pretreatment with Benadryl, Tylenol, Decadron due to history of transfusion reaction. Patient is known to have multiple antibodies including ?big E antibody in which she has a history of anaphylactic shock No issues with transfusion, no evidence of transfusion reaction H&H stabilized following transfusion Patient has recently been taken off her Jakafi She will follow-up with Dr. Lopez on 06/03/22 Repeat CBC with diff in 1 week (2) Chronic kidney disease, stage 3: Qualifiers: Chronic kidney disease stage 3 subtype: stage 3b (GFR 30-44) Qualified Code(s): N18.32 - Chronic kidney disease, stage 3b Code(s): N18.30 - Chronic kidney disease, stage 3 unspecified Status: Acute Assessment and Plan: Renal function remained at baseline (3) Essential (primary) hypertension: Code(s): I10 - Essential (primary) hypertension Status: Acute Assessment and Plan: Blood pressures stable (4) Hypothyroidism: Code(s): E03.9 - Hypothyroidism, unspecified Status: Acute Assessment and Plan: Continue levothyroxine. TSH within normal limits DS: Summary Hospital Course Hospital Course: Date of admission: 05/28/2022 Date of discharge: 05/29/2022 José Miguel Chan is an 87-year-old female with a history of myelodysplastic syndrome, CHF, CKD, hypertension, hyperlipidemia who presented to the emergency department on 05/28/2022 at the direction of her oncologist in order to receive a blood transfusion after having outpatient lab work done which demonstrated hemoglobin of 6.8. In the ED, her vital signs were stable, WBC 72311, hemoglobin 7.3, hematocrit 25.1, platelets 368, creatinine mildly elevated, additional laboratory workup unremarkable, and CXR showed minimal airspace opacities. She was admitted to the hospitalist service for further evaluation management and received 1 unit packed RBCs. Given her history of transfusion reaction, she was pretreated with Benadryl, Tylenol, and Decadron. She had no issues with transfusion and hemoglobin was stable following transfusion. Hemoglobin 9.0 at time of discharge. Discussed case with on-call oncologist, Dr. Luna who was in agreement with plans for discharge home. Patient will obtain an outpatient CBC with differential with results sent to her PCP and oncologist, Dr. Lopez, with whom she will follow-up as an outpatient. Patient was comfortable with discharge plans and was eager for discharge home where she lives alone, but has her son in community care workers check in during the week. Discussed with the patient worrisome signs and symptoms for which to return and she was educated on her medications. She was discharged in hemodynamically stable condition on 05/29/2022. Time Spent with Patient Time attestation: Total time spent providing and/or coordinating discharge services: 45 minutes Time spent: Greater than 30 minutes Exam Narrative: General: Well-nourished, well-appearing 87-year-old female, sitting up in bed, comfortable, NARD Neuro: awake, alert and oriented x4, speech clear, no focal neuro deficits noted HEENMT: normocephalic, atraumatic, EOMI, sclerae anicteric, moist oral mucosa Respiratory: clear to auscultation bilaterally, nonlabored breathing Cardio: regular rate, regular rhythm with S1-S2 Abdomen: nondistended, normoactive bowel sounds, soft, nontender to palpation Extremities: no edema, erythema, or tenderness to palpation, DP pulses 2+ bilaterally Skin: no rashes or lesions, warm and dry Psych: appropriate mo
--- NOTE | 2022-06-28 16:42 | PDONCCN ---
HPI - Date of Consult Date/Time: 06/28/22 16:42 Requesting Physician: Edith Alexander PA-C Primary Care Provider: Bo Caceres, - Consult Narrative Reason for consult: MDS Narrative: José Miguel Chan is a 87 year old female Patient established with Dr Lopez. Pt not seen and recommended f/u with Dr Lopez. Review of Systems - Neurologic Reports system reviewed and no additional complaints, except as documented, Reports hearing normal [facility] Medical History: Medical History (Last Reviewed 05/30/22 @ 03:33 by Krishna Alvarez MD) Acute respiratory failure with hypoxia Arthritis Chronic anemia She has required intermittent transfusions over the years and it is noted that she had an acute hemolytic anemic transfusion reaction in April 2019. Chronic kidney disease, stage 3 Chronic myeloproliferative disorder Followed by Dr. Luiz Lopez. On [place]. COVID-19 Onset Date: 05/2021 Diastolic congestive heart failure Echocardiogram in November 2021 showed [id number] LVH, normal LV size, LV systolic function at lower limits of normal with an EF between 50 to 55%, segmental wall motion abnormalities with hypokinesis of the basal and mid inferior segments, diastolic dysfunction, and moderate pulmonary hypertension. 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 Followed by Dr. Lopez. 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 Monitored by Dr. Lopez. Surgical History: Surgical History (Last Reviewed 05/30/22 @ 03:33 by Krishna Alvarez MD) H/O hand surgery History of bunionectomy of both great toes History of carpal tunnel release History of cataract surgery History of hammertoe correction History of repair of right rotator cuff Family History: Family History (Last Reviewed 05/30/22 @ 06:21 by Christal Stevens RN) Father Family history of lung cancer, Onset Age: 56 Patient's father is Mother Patient's mother is - Social History Social History: Social History (Last Reviewed 05/30/22 @ 03:33 by Krishna Alvarez MD) Alcohol Use: Alcohol intake: never Substance Use: Substance use: never Substance use type: does not use Others: Spiritual care concerns: No Smoking Status: Smoking status: Former smoker Tobacco type: cigarettes Second hand tobacco smoke exposure: Yes Smoking end date: 02/09/72 Exam - Lab Results Laboratory Last Values WBC 24.2 K/mm3 (4.5-10.0) H 05/29/22 04:41 RBC 2.86 M/mm3 (4.2-5.4) L 05/29/22 04:41 Hgb 9.0 g/dL (12.0-15.0) L 05/29/22 11:50 Hct 30.1 % (37.0-47.0) L 05/29/22 11:50 MCV 94.1 fl (80-100) 05/29/22 04:41 MCH 28.0 pg (26-34) 05/29/22 04:41 MCHC 29.7 g/dl (32-36) L 05/29/22 04:41 RDW 21.6 % (11.5-14.5) H 05/29/22 04:41 Plt Count 387 k/mm3 (150-375) H 05/29/22 04:41 MPV 12.2 fl (7.4-10.4) H 05/29/22 04:41 Immature Gran % (Auto) Not Reportable 05/29/22 04:41 Neut % (Auto) Not Reportable 05/29/22 04:41 Lymph % (Auto) Not Reportable 05/29/22 04:41 George % (Auto) Not Reportable 05/29/22 04:41 Eos % (Auto) Not Reportable 05/29/22 04:41 Baso % (Auto) Not Reportable 05/29/22 04:41 Lymph # (Auto) Not Reportable 05/29/22 04:41 George # (Auto) Not Reportable 05/29/22 04:41 Eos # (Auto) Not Reportable 05/29/22 04:41 Baso # (Auto) Not Reportable 05/29/22 04:41 Abs Immat Gran (auto) Not Reportable 05/29/22 04:41 Absolute Neuts (auto) Not Reportable 05/29/22 04:41 Absolute Nucleated RBC Not Reportable 05/29/22 04:41 Total Counted 100 05/29/22 04:41 Neutrophils % (Manual)
== END 2022-05-29 14:50 | disposition home or self-care (01) ==
LOC: ANHED 14:11 → ANH2MED 14:42
PROVIDERS: Nurse Practitioner; Physician Assistant; Admitting Provider Chiropractor; Emergency Provider Emergency Medicine; PCP Internal Medicine; Visit Provider Physician Assistant
DX: D46.9 Myelodysplastic syndrome, unspecified (principal); I13.0 Hypertensive heart and chronic kidney disease with heart failure and stage 1 through stage 4 chronic kidney disease, or unspecified chronic kidney disease; I50.40 Unspecified combined systolic (congestive) and diastolic (congestive) heart failure; N18.32 Chronic kidney disease, stage 3b; D63.1 Anemia in chronic kidney disease; E03.9 Hypothyroidism, unspecified; R53.1 Weakness; I45.4 Nonspecific intraventricular block; Z20.822 Contact with and (suspected) exposure to COVID-19; R77.8 Other specified abnormalities of plasma proteins; E78.5 Hyperlipidemia, unspecified; R94.31 Abnormal electrocardiogram [ECG] [EKG]; M19.90 Unspecified osteoarthritis, unspecified site; Z86.16 Personal history of COVID-19; Z87.891 Personal history of nicotine dependence; Z79.82 Long term (current) use of aspirin; Z79.899 Other long term (current) drug therapy
CPT/HCPCS: 36415; 36430; 71046; 80053; 82728; 83605; 83615; 83735; 83880; 84443; 85014; 85018; 85025; 86850; 86860; 86870; 86880; 86900; 86901; 86902; 86922; 93005; 96374; 96375; 99285; A9270; C9803; G0378; J0131; J1100; J1200; P9016; U0003; U0005

== ENCOUNTER 2022-05-30 03:04 | Inpatient (IN) | payer MEDICARE, MEDICAID, SELFPAY ==
[2022-05-30] VITALS (26 sets, daily range): BP systolic 94–194; BP diastolic 51–102; PULSE 73–129; RESP 18–35; TEMP 36.3–38.3; O2SAT 94–100; BMI 33.2
--- NOTE | 2022-05-30 | ECHO_ITS ---
Patient Info Name: José Miguel Chan Age: 87 years : 1935 Gender: Female Ht: 64 in Wt: 193 lbs BSA: 2.02 m2 HR: 78 bpm BP: 114 / 56 mmHg Heart Rhythm: Sinus Rhythm Technical Quality: Fair Exam Date: 05/30/2022 12:58 PM Exam Location: [facility] Pulmonary Exam Room: 207 Patient Status: Inpatient Admit Date: 05/30/2022 Staff Ordering Physician: Romie Stahl MD Business Management Manager: Odalys Muñiz RDCS Attending Provider: Romie Stahl MD Exam Type: CA echo doppler color flow Study Info Indications - elevated troponins Complete two-dimensional, color flow and Doppler transthoracic echocardiogram is performed. Summary 1. Complete two-dimensional, color flow and Doppler transthoracic echocardiogram is performed. 2. Mild left ventricular enlargement with systolic function that is mildly reduced. 3. Grade 1 diastolic noncompliance. 4. Modest left atrial enlargement. 5. Trivial amount of aortic valve regurgitation. Left Ventricle Left ventricular chamber dimension is mildly enlarged. Left ventricular systolic function is mildly reduced, estimated at 45-50%. The left ventricular diastolic function is grade I diastolic dysfunction. Right Ventricle Right ventricular chamber dimension is normal. Left Atria Left atrial chamber dimension is mildly enlarged. Right Atria Right atrial chamber dimension is normal. Aortic Valve The aortic valve is trileaflet. There is mild aortic valve sclerosis. There is trace aortic valve regurgitation. Pulmonic Valve The pulmonic valve is not well visualized. Mitral Valve The mitral valve has normal leaflets. Tricuspid Valve The tricuspid valve leaflets are normal. Pericardium/Pleural The pericardium appears normal. Aorta The aortic root size at the sinus of Valsalva is normal. Left Ventricular Outflow Tract Name Value Normal LVOT 2D LVOT Diameter 2.0 cm LVOT Doppler LVOT Peak Gradient 6 mmHg LVOT Mean Gradient 3 mmHg LVOT VTI 22 cm LVOT VTI/AV VTI Ratio 0.8 LVOT Stroke Volume 73 ml LVOT CO 17.3 l/min LVOT CI 8.6 l/min/m2 Pulmonic Valve Name Value Normal PV Doppler PV Peak Gradient 6 mmHg Mitral Valve Name Value Normal MV Doppler MV Decel [place] 406 cm/s2 MV PHT 56 ms MV Area (PHT) 3.9 cm2 4.0-5.0 MV
--- NOTE | ~2022-05-30 | XR_ITS ---
EXAMINATION: XR chest 1V portable DATE: 05/31/2022 05:23 INDICATION: Shortness of breath. TECHNIQUE: A single frontal view of the chest was obtained. COMPARISON: Chest single view 05/30/2022 FINDINGS: There is a diffuse interstitial pattern in the lungs. There are mild airspace opacities in the lower lung zones. No pleural effusion or pneumothorax. Cardiomegaly is noted. IMPRESSION: 1. Improved diffuse lung disease, likely mild pulmonary edema. 2. Cardiomegaly. Reviewed, dictated and finalized at location A.
--- NOTE | ~2022-05-30 | XR_ITS ---
EXAMINATION: XR chest 1V portable DATE: 05/30/2022 03:24 INDICATION: Dyspnea TECHNIQUE: frontal view of the chest was obtained. COMPARISON: 05/28/2022 FINDINGS: Interval increase in interstitial and patchy airspace opacities scattered throughout both lungs. Smal l right pleural effusion. No pneumothorax. Mild cardiomegaly. Moderate thoracic spondylosis. Prior di stal right clavicle resection. IMPRESSION: 1. Increasing bilateral interstitial and airspace opacities which could represent pulmonary edema or pneumonia. 2. Small right pleural effusion. 3. Cardiomegaly. Reviewed, dictated and finalized at location A. IMPRESSION: 1. Increasing bilateral interstitial and airspace opacities which could represe nt pulmonary edema or pneumonia. 2. Small right pleural effusion. 3. Cardiomegaly.
--- NOTE | 2022-05-30 03:08 | ECG_ITS ---
Measurements Intervals [place] Rate: 127 P: ID: 0 QRS: -31 QRSD: 113 T: 72 QT: 305 QTc: 445 Interpretive Statements SINUS TACHYCARDIA INCOMPLETE RIGHT BUNDLE BRANCH BLOCK LEFT ANTERIOR SUPERIOR HEMIBLOCK LEFT VENTRICULAR HYPERTROPHY AND ST-T CHANGE [VOLTAGE CRITERIA PLUS ST/T ABNORMALITY] COMPARED TO ECG 05/28/2022 11:15:05 HEART RATE IS ACCELERATED Electronically Signed On 05-30-2022 16:57:19 CDT by Jasvir Canas M.D.
--- NOTE | 2022-05-30 03:20 | PC.NURSE ---
bed alarm placed under pt., yellow triangle on door.
[2022-05-30 03:23] LABS: Hematocrit 30.3 % (37.0-47.0); Mean Corpuscular HGB Conc 29.7 g/dl (32-36); Mean Corpuscular Hemoglobin 27.6 pg (26-34); Mean Corpuscular Volume 92.9 fl (80-100); Mean Platelet Volume 11.5 fl (7.4-10.4); Platelet Count Result 473 k/mm3 (150-375); Red Blood Count 3.26 M/mm3 (4.2-5.4); Red Cell Distribution Width 22.6 % (11.5-14.5); White Blood Count 29.6 K/mm3 (4.5-10.0)
[2022-05-30] MEDS: FUROSEMIDE INJ 40 MG/4 ML VIAL IV PUSH ×3 (03:24→20:27)
[2022-05-30 03:31] LABS: Lactic Acid Reflex 2.2 mmol/L (0.7-2.0)
[2022-05-30 03:32] LABS: INR 1.3; Prothrombin Time 15.6 Seconds (11.1-14.7)
[2022-05-30 03:32] LABS: Alveolar/Arterial O2 Gradient 607.4 mmHg; Base Excess ABG -7.2 mEq/l (+/-2.0); Fractional Inspired Oxygen 100 %; HCO3 ABG 17.2 mEq/l (22.0-26.0); Oxygen Content ABG 13.7 %vol (16.0-22.0); Oxygen Saturation ABG 94.7 % (95.0-100.0); PCO2 ABG 31.2 mmHg (35.0-45.0); PO2 ABG 74.4 mmHg (80.0-100.0); PO2 FiO2 Ratio Arterial Blood 0.74 %; Total Hemoglobin 10.4 g/dL (12.0-18.0)
--- NOTE | 2022-05-30 03:32 | ED.GENADULT ---
HPI - General Adult General Chief complaint: Shortness of Breath/Dyspnea Stated complaint: SOB Time Seen by Provider: 05/30/22 03:07 History of Present Illness HPI narrative: Patient 87-year-old female presents the emergency department with chief complaint of shortness of breath. Patient had a transfusion earlier today while in the hospital and was discharged home this evening patient states when she left the hospital she was feeling okay at home as subsequently developed severe shortness of breath when EMS was called patient was found to be saturating in the 80s was placed on a nonrebreather and transported to the emergency department. Patient reports no hives no itching but does report that she feels extremely short of breath. Related Data Home Medications Medication Instructions Recorded Confirmed gabapentin 300 mg capsule 300 mg PO TID 04/26/21 05/28/22 (Neurontin) pantoprazole 40 mg tablet,delayed 40 mg PO QAM 04/26/21 05/28/22 release (Protonix) pyridoxine (vitamin B6) 250 mg 200 mg PO DAILY 09/20/21 05/28/22 tablet (Vitamin B-6) aspirin 81 mg tablet,delayed 81 mg PO QAM 05/10/22 05/28/22 release (Adult Low Dose Aspirin) furosemide 40 mg tablet (Lasix) 40 mg PO EVERY OTHER DAY 05/10/22 05/28/22 levothyroxine 50 mcg tablet 50 mcg PO DAILY 05/10/22 05/28/22 (Synthroid) furosemide 20 mg tablet 20 mg PO EVERY OTHER DAY 05/28/22 05/28/22 Allergies Allergy/AdvReac Type Severity Reaction Status Date / Time hydrocodone Allergy Severe vomiting Verified 05/30/22 03:12 codeine Allergy Mild Hives Verified 05/30/22 03:12 Sulfa (Sulfonamide Allergy Mild Rash Verified 05/30/22 03:12 Antibiotics) meloxicam Allergy Unknown Difficulty Verified 05/30/22 03:12 Breathing naproxen Allergy Unknown Other Verified 05/30/22 03:12 MUSCLE RELAXERS Allergy Mild rapid Uncoded 05/27/22 20:21 heart beat BIG E BLOOD ANTIBODY Allergy Unknown Anaphylactic Uncoded 05/27/22 20:21 Shock Review of Systems Review of Systems: A 10 system review of systems was completed on the patient and is negative except for what is stated in the HPI. Nursing and ancillary documentation was reviewed. [facility] Past Medical History Medical History Acute respiratory failure with hypoxia Arthritis Chronic anemia She has required intermittent transfusions over the years and it is noted that she had an acute hemolytic anemic transfusion reaction in April 2019. Chronic kidney disease, stage 3 Chronic myeloproliferative disorder Followed by Dr. Luiz Lopez. On Jakafi. COVID-19 (05/2021) Diastolic congestive heart failure Echocardiogram in November 2021 showed [id number] LVH, normal LV size, LV systolic function at lower limits of normal with an EF between 50 to 55%, segmental wall motion abnormalities with hypokinesis of the basal and mid inferior segments, diastolic dysfunction, and moderate pulmonary hypertension. 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 Followed by Dr. Lopez. 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 Monitored by Dr. Lopez. Surgical History Surgical History H/O hand surgery History of bunionectomy of both great toes History of carpal tunnel release History of cataract surgery History of hammertoe correction History of repair of right rotator cuff Family History Family History Father Family history of lung cancer, Onset Age: 56 Patient's father is Mother Patient's mother is Social History Social History Social History: [place]
[2022-05-30 03:33] LABS: Partial Thromboplastin Time 36.9 SECONDS (22.3-36.8)
[2022-05-30 03:34] LABS: Device NON-REBREATHER MASK; Modified Allen's Test Pass; Site Drawn RIGHT RADIAL
[2022-05-30 03:51] LABS: Alanine Aminotransferase 26 U/L (6-35); Albumin Level 4.5 g/dL (3.5-5.1); Alkaline Phosphatase 131 U/L (38-126); Anion Gap 9 mmol/L (8-16); Aspartate Amino Transferase 130 U/L (14-36); Bilirubin,Total 1.5 mg/dL (0.2-1.3); Blood Urea Nitrogen 31 mg/dL (7-17); Calcium 8.1 mg/dL (8.4-10.2); Carbon Dioxide 22 mmol/L (22-30); Chloride 102 mmol/L (98-107); Estimated CRCL calculation 27 ml/min; Estimated Glomerular Filt Rate 36; Glucose 148 mg/dL (65-110); Magnesium 1.7 mg/dL (1.6-2.3); NT Pro B Type Natriuretic Pept 6530 pg/mL (5-100); Potassium 4.2 mmol/L (3.4-5.0); Sodium 133 mmol/L (137-145); Troponin I < 0.012 ng/mL (0.000-0.034)
--- NOTE | 2022-05-30 03:57 | PM.IMHP ---
H&P: HPI History of Present Illness Date/Time: 05/30/22 03:57 Chief Complaint: shortness of breath Narrative: This is an 87-year-old female with past medical history significant for chronic anemia, chronic kidney disease, myeloproliferative disorder, diastolic heart failure, hypertension, dyslipidemia, hypothyroidism, myelodysplastic syndrome. Patient just recently discharged from [facility] in the morning after receiving blood transfusions. Patient is brought back to the emergency room due to shortness of breath with increased work of breathing on an oxygen saturation of 80% at room air at home. patient is on BiPAP at the time of my visit most of the history was obtained upon reviewing medical records speaking to emergency room physician and daughter who is at the bedside. in emergency room patient was placed on BiPAP she received a dose of Lasix as well and she is much improved. Preliminary workup was significant for brain natriuretic peptide of 6000, lactic acid was 2.2, white count 29 cells and, creatinine 1.4 a chest x-ray was significant for diffuse bilateral lung infiltrates. Patient is been admitted for further evaluation management and treatment. Review of Systems Review of Systems: ROS unobtainable: Yes unobtainable due to medical condition ( Patient on BiPAP) PMFSH Past Medical History Medical History Acute respiratory failure with hypoxia Arthritis Chronic anemia She has required intermittent transfusions over the years and it is noted that she had an acute hemolytic anemic transfusion reaction in April 2019. Chronic kidney disease, stage 3 Chronic myeloproliferative disorder Followed by Dr. Luiz Lopez. On Jakafi. COVID-19 (05/2021) Diastolic congestive heart failure Echocardiogram in November 2021 showed [id number]-[id number] LVH, normal LV size, LV systolic function at lower limits of normal with an EF between 50 to 55%, segmental wall motion abnormalities with hypokinesis of the basal and mid inferior segments, diastolic dysfunction, and moderate pulmonary hypertension. 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 Followed by Dr. Lopez. 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 Monitored by Dr. Lopez. Surgical History Surgical History H/O hand surgery History of bunionectomy of both great toes History of carpal tunnel release History of cataract surgery History of hammertoe correction History of repair of right rotator cuff Family History Family History Father Family history of lung cancer, Onset Age: 56 Patient's father is Mother Patient's mother is Social History Social History Social History: Surrogate decision maker: Makenzie Osorio or Harlan Chan (son). She is . She has 4 children. She is retired from retail. She is a lifelong nonsmoker. She does not use alcohol marijuana or illicit drugs. Code status: Do not resuscitate. Smoking status: Former smoker Tobacco type: cigarettes Second hand tobacco smoke exposure: Yes Smoking end date: 02/09/72 Alcohol intake: never Substance use: never Substance use type: does not use Additional living arrangements comments: since the age of 41. Lives independently with her dog. Son lives next door. Additional occupation/education comments: Retired. Spiritual care concerns: No Meds Home Medications and Allergies Home Medications Medication Instructions Recorded Confirmed Type gabapentin 300 mg capsule 300 mg PO TID 04/26/21
[2022-05-30 04:00] LABS: Influenza A QL RT-PCR Negative (Negative); Influenza B QL RT-PCR Negative (Negative); SARS-CoV-2 RNA PCR Negative
[2022-05-30 04:02] LABS: Band Neutrophils Percent 25 % (0-6); Basophils Absolute Manual 0.29 K/mm3 (0.0-0.1); Basophils Percent Manual 1 % (0-1); Eosinophils Absolute Manual 1.18 K/mm3 (0.02-0.5); Eosinophils Percent Manual 4 % (0-4); Giant Platelets Present; Lymphocytes Absolute Manual 4.14 K/mm3 (1.1-4.5); Metamyelocytes Percent 6 %; Monocytes Absolute Manual 4.14 K/mm3 (0.1-0.90); Monocytes Percent Manual 14 % (3-9); Neutrophils Percent Manual 35 % (46-73); Nucleated Red Blood Cells 14 %; Platelet Estimate Adequate (Adequate); Promyelocytes Percent 1 %; Total Cells Counted 100
[2022-05-30 04:03] LABS: Anisocytosis 2+ (NORMAL); Microcytosis 1+ (NORMAL); Ovalocytes 2+ (NORMAL); Poikilocytosis 2+ (NORMAL); Spherocytes 1+ (NORMAL)
[2022-05-30 04:04] LABS: Hypochromasia 1+ (NORMAL); Toxic Granulation Present (NORMAL)
[2022-05-30 04:05] LABS: Acanthocytes 1+ (NORMAL)
[2022-05-30 04:06] LABS: Burr Cells 1+ (NORMAL); Stomatocytes 1+ (NORMAL); Tear Drop Cells 1+ (NORMAL)
[2022-05-30 04:07] LABS: Atypical Lymphocytes Present
--- NOTE | 2022-05-30 05:41 | PC.NURSE ---
This patient, José Miguel Chan, was admitted to IMU Room 207-01. Patient/family oriented to hospital policies and general routines including ID bracelet, bed and alarms, visiting hours, pain management, procedures, bathroom and other care routines, personal items, smoking policy, room service/diet, and visiting hours. Information on how to activate the Rapid Response Team has been discussed. Patient/Family are encouraged to report perceived risks to care and to ask questions if they do not understand what they are told or what they should do.
[2022-05-30 06:17] LABS: Reflex Lactic Acid Yes or No Add Lactic
[2022-05-30 07:11] LABS: Troponin I 0.178 ng/mL (0.000-0.034)
[2022-05-30 07:52] LABS: Appearance Urine Clear (Clear); Bilirubin Urine Negative (Negative); Blood Urine Negative (Negative); Color Urine Yellow (Yellow); Glucose Urine UA Negative (Negative); Ketones Urine Negative (Negative); Leukocyte Esterase Ur Trace LEU/UL (Negative); Nitrate Urine Negative (Negative); Protein Urine 1+ mg/dL (Negative); Specific Grav Ur 1.015 (1.001-1.035); Urobilinogen Urine 0.2 mg/dL (<2.0); pH Urine 5.5 (5.0-9.0)
[2022-05-30 07:59] LABS: Mucus Urine Rare /lpf; RBC Urine 0-2 /hpf (0-2); Squamous Epithelial Cell Urine Rare /hpf (Few)
[2022-05-30 08:00] LABS: Add Urine Microscopic? YES
[2022-05-30 09:57] LABS: Lactic Acid 0.7 mmol/L (0.7-2.0)
[2022-05-30 10:19] LABS: Troponin I 0.726 ng/mL (0.000-0.034)
--- NOTE | 2022-05-30 10:53 | PM.IMPN ---
Progress Note: A&P Assessment and Plan (1) Acute respiratory failure with hypoxia: Code(s): J96.01 - Acute respiratory failure with hypoxia Status: Acute Assessment and Plan: currently on BiPAP supportive care (2) Fluid overload due to transfusion of blood: Code(s): E87.71 - Transfusion associated circulatory overload Status: Acute Assessment and Plan: aggressive diuresis I's and O's (3) Diastolic congestive heart failure: Code(s): I50.30 - Unspecified diastolic (congestive) heart failure Status: Chronic Assessment and Plan: fluid restriction to 1500 cc daily (4) Myelodysplastic syndrome: Code(s): D46.9 - Myelodysplastic syndrome, unspecified Status: Acute Assessment and Plan: unchanged follow-up in outpatient setting (5) Chronic kidney disease, stage 3: Qualifiers: Chronic kidney disease stage 3 subtype: stage 3b (GFR 30-44) Qualified Code(s): N18.32 - Chronic kidney disease, stage 3b Code(s): N18.30 - Chronic kidney disease, stage 3 unspecified Status: Acute Assessment and Plan: patient with worsening creatinine (6) Chronic myeloproliferative disorder: Code(s): D47.1 - Chronic myeloproliferative disease Status: Acute Assessment and Plan: unchanged follow-up in outpatient setting (7) GHAZALA (acute kidney injury): Code(s): N17.9 - Acute kidney failure, unspecified Status: Acute Assessment and Plan: likely cardiorenal syndrome continue to monitor Plan # Acute hypoxic respiratory failure: 80% on room air. Placed on non-rebreather mass and eventually on a BiPAP. EKG with sinus tachycardia. x-ray with increasing bilateral interstitial and airspace opacities which could represent pulmonary edema or pneumonia. Small right pleural effusion and cardiomegaly. She was just here with anemia and had transfuse 1 unit PRBC. This could suggest TRALI/TRAVO. Will continue diuresis. Recheck chest x-ray in a.m. # elevated troponin with up trend serial cardiac enzymes. No chest pain. EKG with sinus tachycardia. Give aspirin 324 mg and continue on aspirin 81 mg daily in lieu to chronic anemia and recent worsening will avoid anticoagulant conservative management. Cardiology consultation. Will order echocardiogram. Echo 11/23 with EF 50-55% with severe mental wall motion abnormality with hypokinesis of basal and mid inferior segments. Diastolic dysfunction is present. [id number] TR moderate pulmonary hypertension RVSP 50. # fluid overload due to transfusion # myelodysplastic syndrome # history of transfusion reaction # GHAZALA on Chronic kidney disease stage 3 # lactic acidosis # hypothyroidism on levothyroxine # DVT prophylaxis SCDs # code status do not resuscitate Subjective Date/time seen: 05/30/22 10:53 Interval history: HPI:?This is an 87-year-old female with past medical history significant for chronic anemia, chronic kidney disease, myeloproliferative disorder, diastolic heart failure, hypertension, dyslipidemia, hypothyroidism, myelodysplastic syndrome.? Patient just recently discharged from [facility] in the morning after receiving blood transfusions.? Patient is brought back to the emergency room due to shortness of breath with increased work of breathing on an oxygen saturation of 80% at room air at home. patient is on BiPAP at the time of my visit most of the history was obtained upon reviewing medical records speaking to emergency room physician and? daughter who is at the bedside. in emergency room patient was placed on BiPAP she received a dose of Lasix as well and she is much improved.? Preliminary workup was significant for brain natriuretic peptide of 6000, lactic acid was 2.2, white count 29 cells and, creatinine 1.4 a chest x-ray was significant for diffuse bilateral lung infiltrates.? Patient is been admitted for further evaluation management and t
--- NOTE | 2022-05-30 14:22 | ECG_ITS ---
Measurements Intervals [place] Rate: 78 P: 53 WI: 177 QRS: -35 QRSD: 134 T: -20 QT: 432 QTc: 494 Interpretive Statements SINUS RHYTHM LEFT ANTERIOR SUPERIOR HEMIBLOCK RIGHT BUNDLE BRANCH BLOCK [120+ ms QRS DURATION, UPRIGHT V1, 40+ ms S IN I/aVL/V4/V5/V6] VOLTAGE CRITERIA FOR LVH [MEETS CRITERIA IN ONE OF: R(aVL), S(V1), R(V5), R(V5/V6)+S(V1)] COMPARED TO ECG 05/30/2022 03:09:30 HEART RATE IS REDUCED Electronically Signed On 05-30-2022 17:12:00 CDT by Jasvir Canas M.D.
--- NOTE | 2022-05-30 14:49 | PM.CNCAR ---
Assessment and Plan Assessment and plan (1) Pulmonary edema: Code(s): J81.1 - Chronic pulmonary edema Status: Acute Plan This is an 87-year-old lady presenting with significant shortness of breath and oxygen desaturation very shortly after receiving a red cell transfusion as detailed in the above notes in the chart as well. The overwhelming likelihood is this represents a transfusion reaction which of course was recognized clinically by the the other physicians as well. In this setting she was significantly hypoxemic and for that reason her troponin levels did rise slightly. There is nothing else going on here that would make me suspicious of an acute coronary syndrome. An echocardiogram has been ordered and the results of that are pending at the time of this dictation. I believe when she is breathing better she can be discharged. She still is requiring nasal cannula oxygen which is not her baseline and so discharged at this time is premature. Jasvir Canas MD [facility] History of Present Illness History of Present Illness Consult date/time: 05/30/22 14:49 Reason For Visit: fluid overload,acute chf Narrative: This is an 87-year-old woman I am seeing at the request of the hospitalist because of elevated troponin levels. Her chart was reviewed and the patient was seen in IMU. This lady has no prior history of cardiac problems and is unknown to me prior to this encounter. Apparently she came into the hospital yesterday very shortly after receiving a red cell transfusion the day before. There is significant concern about her transfusion requirements because she has a history of significant transfusion reactions. She sees a registered pharmacist because of myelodysplastic syndrome and had a hemoglobin of about 6 g and was admitted over the weekend for a red cell transfusion. Because of her history of transfusion reaction she was actually admitted overnight for observation. Her hemoglobin improved to 9 g and she was discharged the following day. She came in later that same evening significantly short of breath and was in respiratory distress her saturations were in the 80s she was put on some oxygen and admitted to the IMU. She has been diuresed with furosemide. She is breathing better now and is on nasal cannula rather than a BiPAP mask which apparently she required yesterday. After this event troponin levels were drawn which are elevated at 0.1 and 0.7. Her electrocardiogram shows sinus mechanism with left anterior superior hemiblock but no acute ST segment deviation was noted. Review of Systems Constitutional: Constitutional: Reports fatigue and Reports lethargy Eyes: Eyes: Reports no additional eye complaints ENT: Reports system reviewed and no additional complaints, except as documented Cardiovascular: Cardiovascular: Reports no additional cardiovascular complaints Respiratory: Respiratory: Reports as per HPI and Reports dyspnea Gastrointestinal: Gastrointestinal: Reports no additional gastrointestinal complaints Musculoskeletal: Musculoskeletal: Reports no additional musculoskeletal complaints Neurologic: Reports system reviewed and no additional complaints, except as documented Endocrine: Endocrine: Reports no additional endocrine complaints Hematologic/Lymphatic: Hematologic/Lymphatic: Reports no additional hematologic/lymphatic complaints Allergic/Immunologic: Allergic/Immunologic: Reports no additional allergic/immunologic complaints [facility] Past Medical History Medical History Acute respiratory failure with hypoxia Arthritis Chronic anemia She has required intermittent transfusions over the years and it is noted that she had an acute hemolytic anemic transfusion reaction in April 2019. Chronic kidney disease, stage 3 Chronic myeloproliferative disorder Followed by Dr. Luiz Lopez. On Jakafi. COVID-19 (05/2021) Diastolic congestive heart failu
[2022-05-30] MEDS: GABAPENTIN 300 MG CAPSULE PO (17:56)
[2022-05-30] MEDS: PYRIDOXINE HCL 50 MG TABLET 200 MG PO (17:56)
[2022-05-30] MEDS: PANTOPRAZOLE 40 MG TABLET PO (17:56)
[2022-05-31] VITALS (13 sets, daily range): BP systolic 119–144; BP diastolic 49–61; PULSE 74–91; RESP 16–20; TEMP 36.3–36.6; O2SAT 91–97
[2022-05-31 05:00] LABS: Hematocrit 27.5 % (37.0-47.0); Hemoglobin 8.3 g/dL (12.0-15.0); Mean Corpuscular HGB Conc 30.2 g/dl (32-36); Mean Corpuscular Hemoglobin 28.5 pg (26-34); Mean Corpuscular Volume 94.5 fl (80-100); Mean Platelet Volume 11.9 fl (7.4-10.4); Platelet Count Result 319 k/mm3 (150-375); Red Blood Count 2.91 M/mm3 (4.2-5.4); Red Cell Distribution Width 23.2 % (11.5-14.5); White Blood Count 19.5 K/mm3 (4.5-10.0)
[2022-05-31 05:23] LABS: Alanine Aminotransferase 21 U/L (6-35); Albumin Level 3.8 g/dL (3.5-5.1); Alkaline Phosphatase 111 U/L (38-126); Anion Gap 7 mmol/L (8-16); Aspartate Amino Transferase 73 U/L (14-36); Bilirubin,Total 1.3 mg/dL (0.2-1.3); Blood Urea Nitrogen 37 mg/dL (7-17); Calcium 7.8 mg/dL (8.4-10.2); Carbon Dioxide 23 mmol/L (22-30); Chloride 102 mmol/L (98-107); Estimated CRCL calculation 26 ml/min; Estimated Glomerular Filt Rate 33; Glucose 103 mg/dL (65-110); Potassium 3.7 mmol/L (3.4-5.0); Sodium 132 mmol/L (137-145)
[2022-05-31 05:33] LABS: Band Neutrophils Percent 9 % (0-6); Lymphocytes Absolute Manual 1.56 K/mm3 (1.1-4.5); Metamyelocytes Percent 1 %; Monocytes Absolute Manual 2.34 K/mm3 (0.1-0.90); Monocytes Percent Manual 12 % (3-9); Neutrophils Absolute Manual 14.82 K/mm3 (1.7-7.2); Neutrophils Percent Manual 67 % (46-73); Nucleated Red Blood Cells 3 %; Ovalocytes 2+ (NORMAL); Platelet Estimate Adequate (Adequate); Promyelocytes Percent 3 %; Total Cells Counted 100
[2022-05-31 05:34] LABS: Anisocytosis 1+ (NORMAL); Large Platelets Present; Poikilocytosis 1+ (NORMAL); Polychromasia 1+ (NORMAL); Tear Drop Cells 1+ (NORMAL)
[2022-05-31] MEDS: LEVOTHYROXINE SODIUM 50 MCG TABLET PO (06:35)
[2022-05-31] MEDS: GABAPENTIN 300 MG CAPSULE PO ×3 (09:12→16:32)
[2022-05-31] MEDS: ASPIRIN 81 MG ENTERIC TABLET PO (09:12)
[2022-05-31] MEDS: FUROSEMIDE INJ 40 MG/4 ML VIAL IV PUSH (09:15)
[2022-05-31] MEDS: PYRIDOXINE HCL 50 MG TABLET 200 MG PO (09:37)
[2022-05-31] MEDS: PANTOPRAZOLE 40 MG TABLET PO (09:37)
--- NOTE | 2022-05-31 15:19 | PM.IMPN ---
Progress Note: A&P Assessment and Plan (1) Acute respiratory failure with hypoxia: Code(s): J96.01 - Acute respiratory failure with hypoxia Status: Acute (2) Fluid overload due to transfusion of blood: Code(s): E87.71 - Transfusion associated circulatory overload Status: Acute (3) Diastolic congestive heart failure: Code(s): I50.30 - Unspecified diastolic (congestive) heart failure Status: Chronic (4) Myelodysplastic syndrome: Code(s): D46.9 - Myelodysplastic syndrome, unspecified Status: Acute (5) Chronic kidney disease, stage 3: Qualifiers: Chronic kidney disease stage 3 subtype: stage 3b (GFR 30-44) Qualified Code(s): N18.32 - Chronic kidney disease, stage 3b Code(s): N18.30 - Chronic kidney disease, stage 3 unspecified Status: Acute (6) Chronic myeloproliferative disorder: Code(s): D47.1 - Chronic myeloproliferative disease Status: Acute (7) GHAZALA (acute kidney injury): Code(s): N17.9 - Acute kidney failure, unspecified Status: Acute Plan # Acute hypoxic respiratory failure: 80% on room air. Placed on non-rebreather mass and eventually on a BiPAP. EKG with sinus tachycardia. x-ray with increasing bilateral interstitial and airspace opacities which could represent pulmonary edema or pneumonia. Small right pleural effusion and cardiomegaly. She was just here with anemia and had transfuse 1 unit PRBC. This could suggest TRALI/TRAVO. Will continue diuresis. Recheck chest x-ray with resolution of congestive changes. Will change IV Lasix to oral Lasix 40 mg daily. LikelyTRAVO. Still has nasal cannula oxygen requirement. Will try to wean her down. Get [employer] at night for nocturnal oxygen requirement. WBC count already improving she has what seems chronic leukocytosis # elevated troponin with up trend serial cardiac enzymes. No chest pain. EKG with sinus tachycardia. Give aspirin 324 mg and continue on aspirin 81 mg daily in lieu to chronic anemia and recent worsening will avoid anticoagulant conservative management. Cardiology consultation. Will order echocardiogram. Echo 11/23 with EF 50-55% with severe mental wall motion abnormality with hypokinesis of basal and mid inferior segments. Diastolic dysfunction is present. [id number] TR moderate pulmonary hypertension RVSP 50. # fluid overload due to transfusion Improved chest x-ray # myelodysplastic syndrome # history of transfusion reaction # GHAZALA on Chronic kidney disease stage 3 # lactic acidosis # hypothyroidism on levothyroxine # DVT prophylaxis SCDs # code status do not resuscitate Disposition: PT OT Subjective Date/time seen: 05/31/22 15:19 Interval history: HPI:?This is an 87-year-old female with past medical history significant for chronic anemia, chronic kidney disease, myeloproliferative disorder, diastolic heart failure, hypertension, dyslipidemia, hypothyroidism, myelodysplastic syndrome.? Patient just recently discharged from [facility] in the morning after receiving blood transfusions.? Patient is brought back to the emergency room due to shortness of breath with increased work of breathing on an oxygen saturation of 80% at room air at home. patient is on BiPAP at the time of my visit most of the history was obtained upon reviewing medical records speaking to emergency room physician and? daughter who is at the bedside. in emergency room patient was placed on BiPAP she received a dose of Lasix as well and she is much improved.? Preliminary workup was significant for brain natriuretic peptide of 6000, lactic acid was 2.2, white count 29 cells and, creatinine 1.4 a chest x-ray was significant for diffuse bilateral lung infiltrates.? Patient is been admitted for further evaluation management and treatment. 05/30/2022: Chart reviewed. Discussed with the nursing staff. Feeling better. No nausea vomiting. Denies any chest pain 05/31/2022 feeling b
--- NOTE | 2022-05-31 15:23 | PCPTNOTE ---
Attempted PT evaluation, patient refusing PT due to fatigue/SOB. Patient reports she will participate tomorrow. RN aware. Will Follow
--- NOTE | 2022-05-31 15:51 | PC.NURSE ---
This patient, José Miguel Chan, was transferred to [facility] on 05/31/22 at 1551. Personal belongings sent with patient. Report given to Paloma ANAYA. Appropriate documentation sent with patient.
--- NOTE | 2022-05-31 15:56 | PC.NURSE ---
This patient, José Miguel Chan, was received from [IMU] on 05/31/22 at 1535. Patient/family oriented to unit policies and routines
[2022-06-01 06:00] VITALS: BP 137/58; PULSE 76; RESP 17; TEMP 35.8; O2SAT 95
[2022-06-01 06:37] LABS: Hemoglobin 8.1 g/dL (12.0-15.0); Mean Corpuscular HGB Conc 28.9 g/dl (32-36); Mean Corpuscular Volume 96.9 fl (80-100); Mean Platelet Volume 12.6 fl (7.4-10.4); Platelet Count Result 364 k/mm3 (150-375); Red Blood Count 2.89 M/mm3 (4.2-5.4); Red Cell Distribution Width 23.8 % (11.5-14.5)
[2022-06-01] MEDS: LEVOTHYROXINE SODIUM 50 MCG TABLET PO (06:38)
[2022-06-01 06:52] LABS: Alanine Aminotransferase 20 U/L (6-35); Albumin Level 3.7 g/dL (3.5-5.1); Alkaline Phosphatase 97 U/L (38-126); Anion Gap 8 mmol/L (8-16); Aspartate Amino Transferase 61 U/L (14-36); Bilirubin,Total 1.1 mg/dL (0.2-1.3); Blood Urea Nitrogen 44 mg/dL (7-17); Calcium 7.8 mg/dL (8.4-10.2); Carbon Dioxide 21 mmol/L (22-30); Chloride 103 mmol/L (98-107); Estimated CRCL calculation 28 ml/min; Estimated Glomerular Filt Rate 36; Glucose 107 mg/dL (65-110); Magnesium 2.3 mg/dL (1.6-2.3); Potassium 4.1 mmol/L (3.4-5.0); Sodium 132 mmol/L (137-145)
[2022-06-01 07:34] LABS: Band Neutrophils Percent 18 % (0-6); Eosinophils Absolute Manual 0.72 K/mm3 (0.02-0.5); Eosinophils Percent Manual 4 % (0-4); Lymphocytes Absolute Manual 1.62 K/mm3 (1.1-4.5); Metamyelocytes Percent 5 %; Monocytes Absolute Manual 1.44 K/mm3 (0.1-0.90); Monocytes Percent Manual 8 % (3-9); Neutrophils Absolute Manual 13.32 K/mm3 (1.7-7.2); Neutrophils Percent Manual 56 % (46-73); Nucleated Red Blood Cells 2 %; Total Cells Counted 100
[2022-06-01 07:35] LABS: Platelet Estimate Adequate (Adequate)
[2022-06-01 07:43] LABS: Anisocytosis 1+ (NORMAL); Ovalocytes 1+ (NORMAL)
[2022-06-01 08:00] VITALS: O2SAT 91
[2022-06-01] MEDS: PYRIDOXINE HCL 50 MG TABLET 200 MG PO (08:07)
[2022-06-01] MEDS: GABAPENTIN 300 MG CAPSULE PO ×3 (08:08→16:23)
[2022-06-01] MEDS: ASPIRIN 81 MG ENTERIC TABLET PO (08:08)
[2022-06-01] MEDS: FUROSEMIDE 40 MG TABLET PO (08:08)
[2022-06-01] MEDS: PANTOPRAZOLE 40 MG TABLET PO (08:08)
--- NOTE | 2022-06-01 08:12 | PCPTNOTE ---
attempted PT evaluation 805, pt sitting up and eating breakfast;
[2022-06-01 14:00] VITALS: BP 122/56; PULSE 72; RESP 14; TEMP 36.8; O2SAT 90
--- NOTE | 2022-06-01 17:50 | PM.IMPN ---
Progress Note: A&P Assessment and Plan (1) Acute respiratory failure with hypoxia: Code(s): J96.01 - Acute respiratory failure with hypoxia Status: Acute (2) Fluid overload due to transfusion of blood: Code(s): E87.71 - Transfusion associated circulatory overload Status: Acute (3) Diastolic congestive heart failure: Code(s): I50.30 - Unspecified diastolic (congestive) heart failure Status: Chronic (4) Myelodysplastic syndrome: Code(s): D46.9 - Myelodysplastic syndrome, unspecified Status: Acute (5) GHAZALA (acute kidney injury): Code(s): N17.9 - Acute kidney failure, unspecified Status: Acute (6) Chronic kidney disease, stage 3: Qualifiers: Chronic kidney disease stage 3 subtype: stage 3b (GFR 30-44) Qualified Code(s): N18.32 - Chronic kidney disease, stage 3b Code(s): N18.30 - Chronic kidney disease, stage 3 unspecified Status: Acute Plan # Acute hypoxic respiratory failure: 80% on room air. Placed on non-rebreather mass and eventually on a BiPAP. EKG with sinus tachycardia. CXR with increasing bilateral interstitial and airspace opacities which could represent pulmonary edema or pneumonia. Small right pleural effusion and cardiomegaly. She was just here with anemia and had transfused 1 unit PRBC. This could suggest TRALI/TRAVO. Given one dose of IV Lasix and then changed to oral Lasix at higher then home dose. Recheck CXR with resolution of congestive changes. ApneaLink at night for nocturnal oxygen requirement showing she still spends 48min with SpO2<88% on 1L. Will advance O2 and repeat Apnea Link. WBC count chronically elevated. # Elevated troponin to 0.73. No chest pain. EKG with sinus tachycardia, iRBBB and LVH. Started on ASA. Cardiology consultation. Echo with EF 45-50% with grade I diastolic dysfunction. Appreciate Cardiology input. # fluid overload due to transfusion Improved chest x-ray # myelodysplastic syndrome # history of transfusion reaction # GHAZALA on Chronic kidney disease stage 3 # lactic acidosis # hypothyroidism on levothyroxine # DVT prophylaxis SCDs # code status do not resuscitate Disposition: Home Subjective Date/time seen: 06/01/22 17:50 Interval history: 87yo female with hx of chronic anemia, CKD, MDS and dCHF here for shortness of breath with increased work of breathing on an oxygen saturation of 80% at room air at home. She recently was discharged after receiving a blood transfusion. Patient feels slightly short of breath but mostly just tired. Eating okay. No nausea or vomiting. She denies chest pain. White count is elevated but she states that this is chronic for her related to her MDS. Exam Narrative: AF 98.3 122/56 72 14 90% ra Gen - NARD Chest - CTA bilaterally, nml RR CV - RRR S1/S2 Abd - Soft, NT/ND, Positive BS Ext - No pedal edema Psych - Nml mood and affect Skin - Warm and dry Objective Data Vital Signs Vital Signs: Vital Signs - 24 hr 05/31/22 17:56 05/31/22 22:45 05/31/22 22:00 Temperature 97.5 F L Pulse Rate 81 Respiratory Rate 16 Blood Pressure 144/61 H Pulse Oximetry 91 92 94 Oxygen Delivery Nasal Cannula Nasal Cannula Oxygen Flow Rate 1 1 06/01/22 06:00 06/01/22 08:00 06/01/22 09:00 Temperature 96.5 F L Pulse Rate 76 Respiratory Rate 17 Blood Pressure 137/58 L Pulse Oximetry 95 91 Oxygen Delivery Room Air Room Air Oxygen Flow Rate 06/01/22 14:00 Temperature 98.3 F Pulse Rate 72 Respiratory Rate 14 Blood Pressure 122/56 L Pulse Oximetry 90 Oxygen Delivery Oxygen Flow Rate Intake/Output Intake/Output: Intake & Output 05/29/22 05/30/22 05/31/22 06/01/22 23:59 23:59 23:59 23:59 Intake Total 100 1710 1330 Output Total 1800 1450 200 Balance -6566 451 7131 Meds/Results Medications: Active Medications Generic Name Dose Route Start Last Admin Trade Name Freq PRN Reason Stop Dose Admin Aspirin
[2022-06-01 22:00] VITALS: BP 107/41; PULSE 77; RESP 18; TEMP 36.7; O2SAT 92
[2022-06-01 22:44] VITALS: O2SAT 93
[2022-06-02] VITALS (7 sets, daily range): BP systolic 123–126; BP diastolic 51–61; PULSE 64–98; RESP 15–16; TEMP 35.8–36.5; O2SAT 90–100
[2022-06-02] MEDS: LEVOTHYROXINE SODIUM 50 MCG TABLET PO (05:23)
[2022-06-02 06:19] LABS: Hematocrit 25.9 % (37.0-47.0); Hemoglobin 7.7 g/dL (12.0-15.0); Mean Corpuscular HGB Conc 29.7 g/dl (32-36); Mean Corpuscular Hemoglobin 28.1 pg (26-34); Mean Corpuscular Volume 94.5 fl (80-100); Mean Platelet Volume 12.1 fl (7.4-10.4); Platelet Count Result 397 k/mm3 (150-375); Red Blood Count 2.74 M/mm3 (4.2-5.4); Red Cell Distribution Width 22.9 % (11.5-14.5); White Blood Count 15.5 K/mm3 (4.5-10.0)
[2022-06-02 06:38] LABS: Albumin Level 3.5 g/dL (3.5-5.1); Anion Gap 13 mmol/L (8-16); Blood Urea Nitrogen 47 mg/dL (7-17); Calcium 7.9 mg/dL (8.4-10.2); Carbon Dioxide 23 mmol/L (22-30); Chloride 101 mmol/L (98-107); Estimated CRCL calculation 26 ml/min; Estimated Glomerular Filt Rate 36; Glucose 107 mg/dL (65-110); Magnesium 2.4 mg/dL (1.6-2.3); Phosphorus 4.5 mg/dL (2.5-4.5); Sodium 137 mmol/L (137-145)
[2022-06-02 07:17] LABS: Ovalocytes 1+ (NORMAL)
[2022-06-02 07:18] LABS: Anisocytosis 1+ (NORMAL); Neutrophils Percent Manual 51 % (46-73); Polychromasia 1+ (NORMAL); Total Cells Counted 100
[2022-06-02 07:19] LABS: Band Neutrophils Percent 15 % (0-6); Basophils Absolute Manual 0.15 K/mm3 (0.0-0.1); Basophils Percent Manual 1 % (0-1); Eosinophils Absolute Manual 0.93 K/mm3 (0.02-0.5); Eosinophils Percent Manual 6 % (0-4); Lymphocytes Absolute Manual 2.01 K/mm3 (1.1-4.5); Lymphocytes Percent Manual 13 % (18-44); Metamyelocytes Percent 3 %; Monocytes Percent Manual 11 % (3-9); Neutrophils Absolute Manual 10.23 K/mm3 (1.7-7.2); Nucleated Red Blood Cells 2 %
[2022-06-02] MEDS: PANTOPRAZOLE 40 MG TABLET PO (08:40)
[2022-06-02] MEDS: GABAPENTIN 300 MG CAPSULE PO ×2 (08:40→13:44)
[2022-06-02] MEDS: PYRIDOXINE HCL 50 MG TABLET 200 MG PO (08:40)
[2022-06-02] MEDS: FUROSEMIDE 40 MG TABLET PO (08:40)
[2022-06-02] MEDS: ASPIRIN 81 MG ENTERIC TABLET PO (08:41)
[2022-06-02 10:15] LABS: Hematocrit 32.2 % (37.0-47.0); Hemoglobin 9.3 g/dL (12.0-15.0)
--- NOTE | 2022-06-02 11:38 | PCNFU ---
Nutrition Follow-Up Complete: Inadequate oral intake related to loss of appetite, respiratory status and evidenced by NPO, MST 5. Goal:Advance diet as medically able Oral intake adequate to meet nutritional needs. Pt is progressing towards goal. Pt current nutrition is heart healthy, 1500ml fluid restriction. Nutrition recommendation: Continue with current plan of care. Last recorded weight is 76 kg - down from 80kg on admission. Bowel Motility: +BM 05/31 Labs Reviewed: Hgb:9.3, HCT:32.2, GFR:36, BUN:47, Cr:1.4 Meds Noted: furosemide, protonix Skin: WNL Additional Notes: Pt diet has been advanced to heart healthy. Intake 50-100% most meals. Meeting nutrition goals. Agree with diet orders. Monitoring intakes, weights, labs. Follow up in 7 days.
--- NOTE | 2022-06-02 12:11 | PCRCNOTE ---
WILL SET UP NOC. O2 WITH [facility]
--- NOTE | 2022-06-02 12:58 | PM.DS ---
DS: Admitting Diagnosis Discharge Date 06/02/22 Admitting Diagnosis Shortness of breath DS: Discharge Diagnosis Discharge Diagnosis (1) Acute respiratory failure with hypoxia: Code(s): J96.01 - Acute respiratory failure with hypoxia Status: Acute (2) Fluid overload due to transfusion of blood: Code(s): E87.71 - Transfusion associated circulatory overload Status: Acute (3) Diastolic congestive heart failure: Code(s): I50.30 - Unspecified diastolic (congestive) heart failure Status: Chronic (4) Myelodysplastic syndrome: Code(s): D46.9 - Myelodysplastic syndrome, unspecified Status: Acute (5) GHAZALA (acute kidney injury): Code(s): N17.9 - Acute kidney failure, unspecified Status: Acute (6) Chronic kidney disease, stage 3: Qualifiers: Chronic kidney disease stage 3 subtype: stage 3b (GFR 30-44) Qualified Code(s): N18.32 - Chronic kidney disease, stage 3b Code(s): N18.30 - Chronic kidney disease, stage 3 unspecified Status: Acute DS: Summary Hospital Course Reason for hospitalization: 87yo female with hx of chronic anemia, CKD, MDS and dCHF here for shortness of breath with increased work of breathing on an oxygen saturation of 80% at room air at home. She recently was discharged after receiving a blood transfusion. Please see H&P for details. Hospital Course: Patient presents with shortness of breath and found to have acute hypoxic respiratory failure. She was 80% on room air. Placed on non-rebreather mass and eventually on a BiPAP. CXR with increasing bilateral interstitial and airspace opacities which could represent pulmonary edema or pneumonia. Small right pleural effusion and cardiomegaly. She was just here with anemia and had transfused 1 unit PRBC. This could suggest TRALI/TRAVO. Given one dose of IV Lasix and then changed to oral Lasix at higher then home dose. Recheck CXR with resolution of congestive changes. ApneaLink at night for nocturnal oxygen requirement showing she still spends 48min with SpO2<88% on 1L. This improved with 2L at night. Home o2 evaluation showed that she did not need O2 while awake. She did have elevated troponin to 0.73. No chest pain. EKG with sinus tachycardia, iRBBB and LVH. She was started on ASA. Cardiology consulted. Echo with EF 45-50% with grade I diastolic dysfunction. [place] the elevated Troponin was from the acute pulmonary edema. She overall did well and was able to be discharged home on 06/02/22 Status at Discharge Cognitive/behavioral status at discharge: Stable Time Spent with Patient Time attestation: Total time spent providing and/or coordinating discharge services: 35 minutes Time spent: Greater than 30 minutes Exam Narrative: AF 96.4 123/51 77 16 97% ra Gen - NARD Chest - CTA bilaterally, nml RR CV - RRR S1/S2 Abd - Soft, NT/ND, Positive BS Ext - No pedal edema Psych - Nml mood and affect Skin - Warm and dry DS: Data Data Completed and Pending Labs on day of discharge: Labs from last 24 hours 06/02/22 06/02/22 06/02/22 10:09 05:54 05:54 WBC 15.5 H RBC 2.74 L Hgb 9.3 L 7.7 L Hct 32.2 L 25.9 L MCV 94.5 MCH 28.1 MCHC 29.7 L RDW 22.9 H Plt Count 397 H MPV 12.1 H Immature Gran % (Auto) Not Reportable Neut % (Auto) Not Reportable Lymph % (Auto) Not Reportable Towns % (Auto) Not Reportable Eos % (Auto) Not Reportable Baso % (Auto) Not Reportable Lymph # (Auto) Not Reportable Towns # (Auto) Not Reportable Eos # (Auto) Not Reportable Baso # (Auto) Not Reportable Abs Immat Gran (auto) Not Reportable Absolute Neuts (auto) Not Reportable Absolute Nucleated RBC Not Reportable Total Counted 100 Neutrophils % (Manual) 51 Band Neutrophils % 15 H Lymphocytes % (Manual) 13 L Monocytes % (Manual) 11 H Eosinophils % (Manual) 6 H Basophils % (Manual) 1 Metamyelocytes %
[2022-06-02] MEDS: DOCUSATE SODIUM 100 MG CAPSULE PO (13:44)
--- NOTE | 2022-06-02 13:46 | PC.NURSE ---
On 06/02/22, the student, [Rhina [facility]ERRMANN [facility] ], provided care and completed Project Travel documentation on this patient. I have reviewed the student's documentation and agree with the findings.
--- NOTE | 2022-06-02 14:22 | PC.NURSE ---
Maureen RN contacted POA to provide discharge information and receive updates in regards to patient's oxygen equipment delivered and setup. Patient will be discharged as soon as the RN is notified.
== END 2022-06-02 15:36 | disposition home health service (06) | DRG 205 ==
LOC: ANHED 04:17 → ANHIMU 04:54 → ANH3MEDSUR 05-31 15:24
PROVIDERS: Internal Medicine; Admitting Provider Internal Medicine; Emergency Provider Emergency Medicine; PCP Internal Medicine; Visit Provider Internal Medicine
DX: J95.84 Transfusion-related acute lung injury (TRALI) (principal); I50.33 Acute on chronic diastolic (congestive) heart failure; J96.01 Acute respiratory failure with hypoxia; I13.0 Hypertensive heart and chronic kidney disease with heart failure and stage 1 through stage 4 chronic kidney disease, or unspecified chronic kidney disease; N17.9 Acute kidney failure, unspecified; D47.1 Chronic myeloproliferative disease; D63.1 Anemia in chronic kidney disease; E78.5 Hyperlipidemia, unspecified; E03.9 Hypothyroidism, unspecified; M19.90 Unspecified osteoarthritis, unspecified site; N18.32 Chronic kidney disease, stage 3b; R77.8 Other specified abnormalities of plasma proteins; Z20.822 Contact with and (suspected) exposure to COVID-19; Z87.891 Personal history of nicotine dependence; Z86.16 Personal history of COVID-19; Z79.82 Long term (current) use of aspirin; Z66 Do not resuscitate
CPT/HCPCS: 36415; 36430; 36600; 71045; 71046; 80053; 80069; 81001; 82728; 82805; 83605; 83615; 83735; 83880; 84145; 84443; 84484; 85014; 85018; 85025; 85610; 85730; 86850; 86860; 86870; 86880; 86900; 86901; 86902; 86922; 87040; 87502; 93005; 93306; 94002; 94618; 94660; 94762; 96374; 96375; 97110; 97116; 97161; 97165; 97535; 99285; A9270; C9803; G0378; J0131; J1100; J1200; J1940; P9016; U0003; U0005

== ENCOUNTER 2022-06-08 11:09 | Outpatient (NON) | payer MEDICARE, MEDICAID, SELFPAY ==
[2022-06-08 11:38] LABS: Hematocrit 27.8 % (37.0-47.0); Hemoglobin 7.9 g/dL (12.0-15.0); Mean Corpuscular HGB Conc 28.4 g/dl (32-36); Mean Corpuscular Hemoglobin 27.6 pg (26-34); Mean Corpuscular Volume 97.2 fl (80-100); Mean Platelet Volume 11.6 fl (7.4-10.4); Platelet Count Result 504 k/mm3 (150-375); Red Blood Count 2.86 M/mm3 (4.2-5.4); Red Cell Distribution Width 23.5 % (11.5-14.5); White Blood Count 16.3 K/mm3 (4.5-10.0)
[2022-06-08 11:50] LABS: Alanine Aminotransferase 22 U/L (6-35); Albumin Level 3.8 g/dL (3.5-5.1); Alkaline Phosphatase 110 U/L (38-126); Anion Gap 11 mmol/L (8-16); Aspartate Amino Transferase 80 U/L (14-36); Bilirubin,Total 0.7 mg/dL (0.2-1.3); Blood Urea Nitrogen 30 mg/dL (7-17); Calcium 8.5 mg/dL (8.4-10.2); Carbon Dioxide 25 mmol/L (22-30); Chloride 100 mmol/L (98-107); Estimated Glomerular Filt Rate 39; Glucose 106 mg/dL (65-110); Potassium 4.2 mmol/L (3.4-5.0); Sodium 136 mmol/L (137-145)
[2022-06-08 14:33] LABS: Band Neutrophils Percent 11 % (0-6); Eosinophils Absolute Manual 0.97 K/mm3 (0.02-0.5); Eosinophils Percent Manual 6 % (0-4); Lymphocytes Absolute Manual 1.63 K/mm3 (1.1-4.5); Metamyelocytes Percent 3 %; Monocytes Absolute Manual 1.79 K/mm3 (0.1-0.90); Monocytes Percent Manual 11 % (3-9); Myelocytes Percent 6 %; Neutrophils Absolute Manual 10.43 K/mm3 (1.7-7.2); Neutrophils Percent Manual 53 % (46-73); Total Cells Counted 100
[2022-06-08 14:34] LABS: Ovalocytes 1+ (NORMAL); Platelet Estimate Increased (Adequate)
[2022-06-08 14:37] LABS: Anisocytosis 1+ (NORMAL)
== END 2022-06-08 11:10 | disposition home or self-care (01) ==
LOC: ANHLAB 11:12
PROVIDERS: PCP Internal Medicine; Visit Provider Internal Medicine Medical Oncology
DX: D46.9 Myelodysplastic syndrome, unspecified (principal)
CPT/HCPCS: 36415; 80053; 85025

== ENCOUNTER 2022-06-13 13:38 | Outpatient (NON) | payer MEDICARE, MEDICAID, SELFPAY ==
[2022-06-13 14:29] LABS: Hematocrit 24.9 % (37.0-47.0); Hemoglobin 7.1 g/dL (12.0-15.0); Mean Corpuscular HGB Conc 28.5 g/dl (32-36); Mean Corpuscular Hemoglobin 27.3 pg (26-34); Mean Corpuscular Volume 95.8 fl (80-100); Platelet Count Result 427 k/mm3 (150-375); Red Cell Distribution Width 23.6 % (11.5-14.5); White Blood Count 13.2 K/mm3 (4.5-10.0)
[2022-06-13 17:09] LABS: Alanine Aminotransferase 31 U/L (6-35); Albumin Level 3.6 g/dL (3.5-5.1); Alkaline Phosphatase 94 U/L (38-126); Anion Gap 9 mmol/L (8-16); Aspartate Amino Transferase 113 U/L (14-36); Bilirubin,Total 0.8 mg/dL (0.2-1.3); Blood Urea Nitrogen 28 mg/dL (7-17); Calcium 8.3 mg/dL (8.4-10.2); Carbon Dioxide 27 mmol/L (22-30); Chloride 100 mmol/L (98-107); Estimated Glomerular Filt Rate 39; Glucose 96 mg/dL (65-110); Potassium 4.3 mmol/L (3.4-5.0); Sodium 136 mmol/L (137-145)
[2022-06-13 17:35] LABS: Band Neutrophils Percent 5 % (0-6); Eosinophils Absolute Manual 0.13 K/mm3 (0.02-0.5); Eosinophils Percent Manual 1 % (0-4); Lymphocytes Absolute Manual 2.64 K/mm3 (1.1-4.5); Monocytes Percent Manual 22 % (3-9); Neutrophils Absolute Manual 7.52 K/mm3 (1.7-7.2); Neutrophils Percent Manual 52 % (46-73); Nucleated Red Blood Cells 2 %; Total Cells Counted 100
[2022-06-13 17:36] LABS: Anisocytosis 3+ (NORMAL); Hypochromasia 1+ (NORMAL); Platelet Estimate Increased (Adequate)
[2022-06-13 17:39] LABS: Large Platelets Present; Polychromasia 1+ (NORMAL)
== END 2022-06-13 13:39 | disposition home or self-care (01) ==
LOC: ANHLAB 13:42 → HOME HLTH 16:43
PROVIDERS: PCP Internal Medicine; Visit Provider Internal Medicine Medical Oncology
DX: D46.9 Myelodysplastic syndrome, unspecified (principal)
CPT/HCPCS: 36415; 80053; 85025

== ENCOUNTER 2022-06-21 11:27 | Outpatient (NON) | payer MEDICARE, MEDICAID, SELFPAY ==
[2022-06-21 12:15] LABS: Hemoglobin 7.3 g/dL (12.0-15.0); Mean Corpuscular HGB Conc 28.1 g/dl (32-36); Mean Corpuscular Hemoglobin 27.2 pg (26-34); Mean Platelet Volume 11.9 fl (7.4-10.4); Platelet Count Result 618 k/mm3 (150-375); Red Blood Count 2.68 M/mm3 (4.2-5.4); Red Cell Distribution Width 23.9 % (11.5-14.5); White Blood Count 18.9 K/mm3 (4.5-10.0)
[2022-06-21 13:18] LABS: Band Neutrophils Percent 7 % (0-6); Eosinophils Absolute Manual 0.18 K/mm3 (0.02-0.5); Eosinophils Percent Manual 1 % (0-4); Lymphocytes Absolute Manual 5.29 K/mm3 (1.1-4.5); Metamyelocytes Percent 1 %; Monocytes Absolute Manual 1.13 K/mm3 (0.1-0.90); Monocytes Percent Manual 6 % (3-9); Neutrophils Absolute Manual 12.09 K/mm3 (1.7-7.2); Neutrophils Percent Manual 57 % (46-73); Platelet Estimate Increased (Adequate); Total Cells Counted 100
[2022-06-21 13:19] LABS: Anisocytosis 1+ (NORMAL); Hypochromasia 1+ (NORMAL); Ovalocytes 1+ (NORMAL); Poikilocytosis 1+ (NORMAL)
== END 2022-06-21 11:28 | disposition home or self-care (01) ==
LOC: HOME HLTH 11:32
PROVIDERS: PCP Internal Medicine; Visit Provider Internal Medicine Medical Oncology
DX: J96.01 Acute respiratory failure with hypoxia (principal); I13.0 Hypertensive heart and chronic kidney disease with heart failure and stage 1 through stage 4 chronic kidney disease, or unspecified chronic kidney disease; I50.30 Unspecified diastolic (congestive) heart failure; N18.32 Chronic kidney disease, stage 3b; D46.9 Myelodysplastic syndrome, unspecified; N17.9 Acute kidney failure, unspecified; Z87.891 Personal history of nicotine dependence; Z51.81 Encounter for therapeutic drug level monitoring; Z79.82 Long term (current) use of aspirin; E03.9 Hypothyroidism, unspecified
CPT/HCPCS: 85025